=== PATIENT | female | born 1940 | race Hispanic/Latino ===

== ENCOUNTER 2016-10-12 12:25 | Emergency (ER) | payer MEDICARE ==
[2016-10-12 12:35] VITALS: BMI 29.2
[2016-10-12 12:40] VITALS: TEMP 98.2
--- NOTE | 2016-10-12 14:27 | ED PDOC ---
Arrival/HPI - General Chief Complaint: Back Pain Time Seen by Provider: 10/12/16 13:51 - History of Present Illness Narrative History of Present Illness (Text): 10/12/16 14:24 Patient presents complaining of back pain. States the location is in the lower region, feels like muscle spasms. Worst with movement and palpation. Pt states this feels identical to previous back pain quality that have happened in the past. Denies fevers/chills, denies IVDA, denies any lower extremity weakness/ numbness/paresthesias. Pt denies saddle anesthesia. Denies any urinary freq or retention. Denies bowel dysfunction/irregularity/incontinence/constipation. Past Medical History - Provider Review Nursing Documentation Reviewed: Yes - Infectious Disease Hx of Infectious Diseases: None - Cardiac Hx Hypertension: Yes Hx Pacemaker: No - Neurological Hx Paralysis: No - Endocrine/Metabolic Hx Diabetes Mellitus Type 2: Yes Hx Hypothyroidism: Yes - Hematological/Oncological Hx Blood Transfusions: No - Musculoskeletal/Rheumatological Hx Musculoskeletal Disorders: Yes (HIPS) Hx Arthritis: Yes - Psychiatric Hx Emotional Abuse: No Hx Physical Abuse: No Hx Substance Use: No - Surgical History Other/Comment: heart stents - Anesthesia Hx Anesthesia: Yes Hx Anesthesia Reactions: No Hx Malignant Hyperthermia: No - Suicidal Assessment Feels Threatened In Home Enviroment: No Family/Social History Family/Social History: Unknown Family HX Smoking Status: Former Smoker Hx Alcohol Use: Yes (RED WINE) Frequency of alcohol use: Socially Hx Substance Use: No Allergies/Home Meds Allergies/Adverse Reactions: Allergies lisinopril Allergy (Verified 12/22/15 11:41) SWELLING Home Medications: Home Meds Medication Instructions Recorded Confirmed Glipizide [Glucotrol] 5 mg PO BID 08/24/14 10/12/16 Insulin Detemir [Levemir Flextouch] 40 unit SC HS 08/24/14 10/12/16 Metformin HCl [Metformin] 1,000 mg PO BID 08/24/14 10/12/16 Metoprolol Succinate [Toprol XL] 50 mg PO BID 08/24/14 10/12/16 Isosorbide Mononitrate [Imdur] 60 mg PO QAM 12/20/14 10/12/16 Enalapril/Hydrochlorothiazide 1 tab PO DAILY 12/22/15 10/12/16 [Enalapril Maleate and Hydrochlorothiazide 10 ] Levothyroxine [Levoxyl] 0.125 mg PO DAILY 12/22/15 10/12/16 amLODIPine [Norvasc] 5 mg PO DAILY 12/22/15 10/12/16 Gabapentin [Neurontin] 300 mg PO BID 12/24/15 10/12/16 traMADol [Ultram] 1 tab PO TID PRN 10/12/16 10/12/16 Physical Exam - Physical Exam Narrative Physical Exam (Text): 10/12/16 14:27 - Review of Systems Constitutional: Normal. absent: Fatigue, Weight Change, Fevers Eyes: Normal ENT: denies sore throat, denies tristhmus Respiratory: Normal. absent: SOB, Cough, Sputum Cardiovascular: absent: Chest Pain, Palpitations, Syncope Gastrointestinal: Normal. absent: Abdominal Pain, Diarrhea, Nausea, Vomiting Genitourinary: Normal. absent: Dysuria, Frequency, Hematuria Musculoskeletal: back pain. absent: Arthralgias, Neck Pain Skin: no rashes, no erythema Neurological: absent: Focal Weakness Endocrine: Normal Hemo/Lymphatic: Normal Psychiatric: No suicidal or homicidal ideations Physical exam Patient appears age appropriate in no distress, speaking full sentences without difficulty Increased hypertonicity appreciated in the R. lower lumbar region, pain quality reproduced with palpation. No midline tenderness. FROM of pt's cervical, thoracic, lumbar, and sacral regions appreciated, active/passive without any difficulty. Lower extremities with full neurological and vascular intact. Steady gait. - Systems Exam Head: Present: Atraumatic, Normocephalic Pupils: Present: PERRL Extroacular Muscles: Present: EOMI Conjunctiva: Present: Normal Mouth: Present: Moist Mucous Membranes Neck: Present: Normal Range of Motion. No: MIDLINE TENDERNESS, Paraspinal Tenderness Respiratory/Chest: Present: Clear to Auscultation, Good Air Exchange. No: Respiratory Distress, Accessory Muscle Use, Tachypneic Cardiovascular: Present: Regular Rate and Rhythm, Normal S1, S2, Peripheal Pulses Present. No: Murmurs Abdomen: Present: Normal Bowel Sounds. No: Tenderness, Distention, Peritoneal Signs, Rebound, Guarding Back: No: Midline Tenderness Upper Extremity: Present: Normal Inspection. No: Cyanosis, Edema Lower Extremity: Present: Normal Inspection. No: Edema Neurological: Present: GCS=15, Speech Normal, cranial nerves II through XII fully intact with no cerebellar abnormality, neurosensory fully intact. No focal neurological deficits. Skin: Present: Warm, Dry, Normal Color. No: Rashes Lymphatic: Present: OX3, NI, NC Psychiatric: Present: Alert, Oriented x 3, Normal Insight, Normal Concentration Vital Signs Reviewed: Yes Vital Signs Temp Pulse Resp BP Pulse Ox 10/12/16 12:39 98.2 F 72 18 172/70 H 99 Temperature: Afebrile Blood Pressure: Hypertensive (asymptomatic) Pulse: Regular Respiratory Rate: Normal Appearance: Positive for: Well-Appearing Pain Distress: None Mental Status: Positive for: Alert and Oriented X 3 Medical Decision Making ED Course and Treatment: 10/12/16 14:28 pt received toradol, reported symptomatic relief. Pt states is not driving home. Based on hx and physical, no suspicion for renal involvement, cord impingement or epidural/spinal abscess stable for dc home. pt ambulates with a cane. pt has tramadol and mm relaxant rx from pain management pt's previous BUN/Cre from 02/04 which were normal pt will be given naproxen and instructed to f/u with PMD outpatient Pt verbalized understands to return to the ER right away for new or worsening symptoms or for inability to f/u with PMD or specialist as instructed. Patient verbalized full agreement with and understanding of discharge instructions. States that he agrees with the plan and disposition. Verbalized and repeated discharge instructions and plan. I have given the patient opportunity to ask any additional questions. - Medication Orders Current Medication Orders: Discontinued Medications Ketorolac Tromethamine (Toradol) 30 mg IM STAT STA Stop: 10/12/16 13:53 Last Admin: 10/12/16 14:06 Dose: 30 mg Disposition/Present on Arrival - Present on Arrival Any Indicators Present on Arrival: No History of DVT/PE: No History of Uncontrolled Diabetes: No Urinary Catheter: No History of Decub. Ulcer: No History Surgical Site Infection Following: None - Disposition Have Diagnosis and Disposition been Completed?: Yes Diagnosis: Back pain Disposition: HOME/ ROUTINE Disposition Time: 14:34 Patient Plan: Discharge Patient Problems: Current Active Problems Problem Status Onset Back pain Acute Condition: GOOD Discharge Instructions (ExitCare): Back Pain (ED) Additional Instructions: PLEASE RETURN TO THE EMERGENCY DEPARTMENT FOR NEW OR WORSENING SYMPTOMS. RETURN RIGHT AWAY IF YOU CANNOT FOLLOW UP WITH YOUR PRIMARY CARE DOCTOR, CLINIC, OR SPECIALIST IN 1-2 DAYS. Prescriptions: Naproxen [Naprosyn Tab] 250 mg PO Q8 #6 tab Referrals: Kameron Mcintyre MD [Primary Care Provider] - Follow up with primary
[2016-10-12 15:21] VITALS: BP 172/66; PULSE 75; RESP 16; O2SAT 98
== END 2016-10-12 15:03 | disposition home or self-care (01) ==
LOC: ED 12:25
DX: M54.9 Dorsalgia, unspecified (principal)
CPT/HCPCS: 96372; 99282; J1885

== ENCOUNTER 2017-02-18 11:09 | Day surgery (SDC) | payer MEDICARE ==
[2017-02-15 12:47] VITALS: BMI 29.9
[2017-02-18 11:50] LABS: BASO # 0.01 K/mm3 (0.0-2.0); BASO % 0.2 % (0.0-3.0); EOS # 0.1 (0.0-0.7); EOS % 1.2 % (1.5-5.0); GRAN # 3.79 (1.4-6.5); GRAN % 58.3 % (50.0-68.0); HEMATOCRIT 29.6 % (36.0-48.0); LYMPH # 2.1 (1.2-3.4); LYMPH % 32.4 % (22.0-35.0); MEAN CELL VOLUME 89.4 fl (80.0-105.0); MEAN CORPUSCULAR HEMOGLOBIN 28.1 pg (25.0-35.0); MEAN CORPUSCULAR HGB CONC 31.4 g/dl (31.0-37.0); MEAN PLATELET VOLUME 9.6 fl (7.0-11.0); MONO # 0.5 (0.1-0.6); MONO % 7.9 % (1.0-6.0); RED CELL DISTRIBUTION WIDTH 15.4 % (11.5-14.5); WHITE BLOOD COUNT 6.5 10^3/ul (4.5-11.0)
[2017-02-18 12:00] LABS: INR 1.01 (0.93-1.08); PARTIAL THROMBOPLASTIN TIME 33.2 Seconds (25.1-36.5)
[2017-02-18 12:02] LABS: CALCIUM 9.6 mg/dL (8.4-10.5); POTASSIUM 4.9 mmol/L (3.6-5.0)
[2017-02-18] MEDS ORDERED: Lidocaine 2% Inj (20ml) ONE (12:31)
[2017-02-18] MEDS ORDERED: Midazolam 2 MG/2 ML VIAL ONE ×3 (12:33→14:39)
[2017-02-18] MEDS ORDERED: Nitroglycerin 50mg in D5W 50 MG/250 ML BOTTLE IV ONE (12:34)
[2017-02-18] MEDS ORDERED: Iodixanol 320 MG/ML 100 ML BOTTLE IV ONE ×3 (12:34→15:25)
[2017-02-18] MEDS ORDERED: Iodixanol 320 MG/ML 200 ML BOTTLE IV ONE (12:34)
[2017-02-18] MEDS ORDERED: Oxycodone/Acetaminophen 5/325 mg Tab PO PRN (15:57)
[2017-02-18] MEDS: Sodium Chloride 0.45% 1,000 ML IV SCH (19:15)
[2017-02-18] MEDS: Metoprolol Succinate 50 mg XL Tab PO SCH (19:21)
[2017-02-18] MEDS: Aspirin 325 mg EC Tablets PO SCH (19:22)
--- NOTE | 2017-02-18 19:54 | VASCULAR ---
PROCEDURE: 1. Abdominal aortogram and bilateral lower extremity runoff with right selective views. 2. Right SFA silver Hawk atherectomy and drug-eluting balloon angioplasty with filter wire protection 3. Ox some wall right anterior tibial artery angioplasty HISTORY: Severe peripheral vascular disease. Previous bilateral iliac stents. Ischemic ulceration with pain right foot. PHYSICIAN(S): Mansoor Dailey M.D. TECHNIQUE: The relative risks and indications of the procedure were explained to the patient and consent obtained. The patient was hydrated prior to the procedure and the appropriate labs drawn. The patient was placed supine on the arteriogram table and the left groin prepped and draped in the usual sterile fashion. Conscious sedation and monitoring were provided throughout the procedure by a nurse. Via a left common femoral artery approach, a 5 Samoan sheath was placed in the left groin. Through the sheath and over a guidewire, a 5 Samoan flush catheter was placed in the abdominal aorta at the level of the renal arteries and a PA DSA abdominal aortogram performed. The catheter was pulled down to the aortic bifurcation and bilateral oblique DSA pelvic arteriograms performed. Overlapping bilateral lower extremity DSA arteriograms were obtained from the inguinal ligaments to the ankles. A 0.035 angled Glidewire was advanced over the bifurcation and placed in the mid right SFA. A 7 Samoan 45 cm destination sheath was placed in the distal right external iliac artery. The multifocal disease in the right SFA and proximal right anterior tibial artery was crossed with a 0.035 angled glidewire and 5 Samoan catheter. Exchange was made for 0.014 support wire. The proximal right anterior tibial artery was dilated with a 3.0 x 8 cm angioplasty balloon. An excellent angiographic result was obtained. No stent was required. 6 mm spider filter was deployed in the distal right popliteal artery. Silver Hawk atherectomy of the entire right SFA was performed with an LS catheter. Three passes were performed. Next the right SFA was dilated with 5 mm drug-eluting balloons distally and 6 mm drug-eluting balloons proximally. 7 mm angioplasty balloon was used in the proximal right SFA. Completion angiograms were performed. Small residual stenoses were seen but no stent was placed. The sheath was removed and hemostasis obtained. The patient tolerated the procedure well . FINDINGS: There appears to be a severe stenosis in the proximal left renal artery. The right renal artery is patent. There is calcified mildly irregular disease of the infrarenal abdominal aorta. The aortic bifurcation is patent. Previously placed bilateral iliac stents are patent without significant re- stenosis. The right internal iliac artery is patent. The left internal iliac artery is occluded.. The nephrograms are symmetric in appearance. The infrarenal abdominal aorta is widely patent without a radiographically significant stenosis. The aortic bifurcation is widely patent. The common and external iliac arteries are normal in appearance without a significant stenosis. The internal iliac arteries are patent bilaterally. Right lower extremity: Examination of the right groin is somewhat limited by the patient's total hip replacement. The right common femoral artery is patent. The right profunda femoral artery is hypertrophied.. There is diffuse calcified disease of the right SFA with multiple mild, moderate, and severe stenoses. The right popliteal artery is patent and continuous with moderate stenoses above the patella. The right popliteal artery below the knee is patent. There is 2 vessel tibial runoff on the right via anterior tibial and peroneal arteries. Right posterior tibial artery is occluded. There is severe right pedal occlusive disease. The dorsalis pedis artery is patent. The plantar arch is occluded. Collaterals are seen at the foot. Left lower extremity: Left common femoral artery is patent. The left profunda femoral artery is hypertrophied. The left superficial femoral artery is diffusely diseased and atretic in appearance. Critical stenosis is noted in the distal left SFA. The left popliteal artery is patent continuous with smooth undulating [id number] disease. There is 2 vessel tibial runoff on the left via the anterior tibial and peroneal arteries. The left posterior tibial artery is occluded.. IMPRESSION: 1.Successful long segment right SFA silver Hawk atherectomy and drug-eluting balloon angioplasty. 2. Successful proximal right anterior tibial artery angioplasty. 3. Patent bilateral iliac stents. 4. Severe left proximal renal artery stenosis. The right renal artery is patent.
[2017-02-19 06:21] LABS: MEAN CELL VOLUME 87.8 fl (80.0-105.0); MEAN CORPUSCULAR HEMOGLOBIN 28.2 pg (25.0-35.0); MEAN CORPUSCULAR HGB CONC 32.1 g/dl (31.0-37.0); MEAN PLATELET VOLUME 9.6 fl (7.0-11.0); RED CELL DISTRIBUTION WIDTH 15.4 % (11.5-14.5)
[2017-02-19 06:39] LABS: CALCIUM 9.1 mg/dL (8.4-10.5)
[2017-02-19 06:42] VITALS: O2SAT 92
[2017-02-19] MEDS: Sodium Chloride 0.45% 1,000 ML IV SCH (07:39)
[2017-02-19 09:12] VITALS: RESP 18
[2017-02-19] MEDS: Metoprolol Succinate 50 mg XL Tab PO SCH (09:56)
[2017-02-19] MEDS: Aspirin 325 mg EC Tablets PO SCH (09:56)
[2017-02-19] MEDS ORDERED: Levothyroxine 125 MCG TAB PO SCH (10:00)
[2017-02-19 11:50] VITALS: BP 160/70; PULSE 85; TEMP 98.6
[2017-02-19] MEDS ORDERED: Insulin Reg-LOW-Coverage SC SCH (12:00)
== END 2017-02-19 13:08 | disposition home or self-care (01) ==
LOC: SDSVAS 11:09 → 2RSO 19:00 → SDSVAS 02-19 13:08
PROVIDERS: ATTEND Radiology Vascular & Interventional Radiology
DX: I70.235 Atherosclerosis of native arteries of right leg with ulceration of other part of foot (principal); L97.519 Non-pressure chronic ulcer of other part of right foot with unspecified severity; I70.1 Atherosclerosis of renal artery
CPT/HCPCS: 36415 ×2; 37225; 37228; 75625; 75716; 80048 ×2; 82948 ×2; 85025; 85027; 85610; 85730; 99152; 99153; C1725 ×6; C1760 ×2; C1769 ×6; C1885; C1887 ×3; C1894; J1644 ×2; J1940; J2250; J2405; J3010; J7030 ×3; Q9967

== ENCOUNTER 2017-08-28 21:28 | Observation (INO) | payer MEDICARE ==
[2017-08-28 21:38] VITALS: BMI 44.9
--- NOTE | 2017-08-28 22:00 | ED PDOC ---
Arrival/HPI - General Historian: Patient <OroscoDelta - Last Filed: 08/29/17 00:03> <Cy Mclaughlin - Last Filed: 08/29/17 20:01> - General Chief Complaint: Dizziness/Lightheaded Time Seen by Provider: 08/28/17 21:33 - History of Present Illness Narrative History of Present Illness (Text): Patient is a 76 year old female with a past medical history of hypertension, hyperlipidemia, diabetes, and CAD with stents who presents to the ED for evaluation and treatment of dizziness with associated chest discomfort which began approximately 7 hours with no specific provoking event. States she felt that the room was spinning. Denies trauma to head and loss of consciousness. Dizziness persisted despite laying down. Dizziness was associated with localized retrosternal chest discomfort. Chest discomfort improved after taking home nitro. Also admits to baseline SOB on exertion. States both dizziness and chest discomfort have resolved at this time. Further denies fever, chills, abdominal pain, nausea, vomiting, diarrhea, constipation, and urinary symptoms. PMD: Dr. 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 Hernandez (Delta Orosco) Past Medical History - Provider Review Nursing Documentation Reviewed: Yes - Travel History Have you recently traveled outside [place] w/in the past 3 mons?: No - Infectious Disease Hx of Infectious Diseases: None - Cardiac Hx Pacemaker: No - Pulmonary Hx Respiratory Disorders: No - Neurological Hx Paralysis: No - HEENT Hx HEENT Disorder: Yes (macular degeneration) - Renal Hx Renal Disorder: No - Endocrine/Metabolic Hx Diabetes Mellitus Type 2: Yes Hx Hypothyroidism: Yes - Hematological/Oncological Hx Blood Transfusions: Yes Hx Blood Transfusion Reaction: No - Integumentary Hx Dermatological Disorder: No - Musculoskeletal/Rheumatological Hx Musculoskeletal Disorders: Yes - Gastrointestinal Hx Gastrointestinal Disorders: Yes (occ diarrhea) - Genitourinary/Gynecological Hx Genitourinary Disorders: No - Psychiatric Hx Emotional Abuse: No Hx Physical Abuse: No Hx Substance Use: No - Surgical History Hx Cardiac Catheterization: Yes (2015/stent) - Anesthesia Hx Anesthesia: Yes Hx Anesthesia Reactions: No Hx Malignant Hyperthermia: No - Suicidal Assessment Feels Threatened In Home Enviroment: No <Delta Orosco - Last Filed: 08/29/17 00:03> Family/Social History - Physician Review Nursing Documentation Reviewed: Yes Family/Social History: Unknown Family HX Smoking Status: Never Smoked Hx Alcohol Use: Yes (RED WINE THREE DAYS A WEEK) Hx Substance Use: No <Delta Orosco - Last Filed: 08/29/17 00:03> Allergies/Home Meds <Delta Orosco - Last Filed: 08/29/17 00:03> <Cy Mclaughlin - Last Filed: 08/29/17 20:01> Allergies/Adverse Reactions: Allergies lisinopril Allergy (Severe, Verified 08/28/17 21:38) ANAPHYLAXIS Home Medications: Home Meds Medication Instructions Recorded Confirmed Glipizide [Glucotrol] 5 mg PO BID 08/24/14 08/28/17 Insulin Detemir [Levemir Flextouch] 40 unit SC HS 08/24/14 08/28/17 Metformin HCl 500 mg PO BID 08/24/14 08/28/17 Metoprolol Succinate [Toprol XL] 50 mg PO BID 08/24/14 08/28/17 Isosorbide Mononitrate [Imdur] 60 mg PO QAM 12/20/14 08/28/17 Levothyroxine [Synthroid] 0.125 mg PO DAILY 12/22/15 08/28/17 amLODIPine [Norvasc] 5 mg PO DAILY 12/22/15 08/28/17 Gabapentin [Neurontin] 300 mg PO HS 12/24/15 08/29/17 Nitroglycerin [Nitrostat] 0.4 mg SL DAILY PRN 11/26/16 08/28/17 Acetaminophen [Tylenol 325mg tab] 650 mg PO Q4 PRN 12/24/16 08/28/17 hydroCHLOROthiazide [Hydrodiuril] 25 mg PO DAILY 12/24/16 08/28/17 Ascorbic Acid [Vitamin C with Radha 500 mg PO BID 01/05/17 08/28/17 Hips] Aspirin [Ecotrin] 325 mg PO BID 01/05/17 08/28/17 Ferrous Sulfate 325 mg pe PO BID 01/05/17 08/28/17 Simvastatin 40 mg PO DAILY 08/29/17 08/29/17 Review of Systems - Review of Systems Constitutional: Normal Eyes: Normal ENT: Normal Respiratory: SOB Cardiovascular: Chest Pain Gastrointestinal: Normal Genitourinary Female: Normal Musculoskeletal: Normal Skin: Normal Neurological: Normal Endocrine: Normal Hemo/Lymphatic: Normal Psychiatric: Normal <Delta Orosco - Last Filed: 08/29/17 00:03> - Physician Review All systems were reviewed & negative as marked: Yes <Cy Mclaughlin - Last Filed: 08/29/17 20:01> Physical Exam Vital Signs Reviewed: Yes Temperature: Afebrile Blood Pressure: Hypertensive Pulse: Tachycardic Respiratory Rate: Normal Appearance: Positive for: Well-Appearing, Non-Toxic, Comfortable Pain Distress: None Mental Status: Positive for: Alert and Oriented X 3 - Systems Exam Head: Present: Atraumatic Pupils: Present: PERRL Extroacular Muscles: Present: EOMI Conjunctiva: Present: Normal Mouth: Present: Moist Mucous Membranes Nose (External): Present: Atraumatic Neck: Present: Normal Range of Motion Respiratory/Chest: Present: Clear to Auscultation, Good Air Exchange. No: Respiratory Distress, Accessory Muscle Use Cardiovascular: Present: Normal S1, S2, Tachycardic Abdomen: No: Tenderness, Distention, Peritoneal Signs, Rebound, Guarding Upper Extremity: Present: Normal Inspection Lower Extremity: Present: Edema (trace edema biateral lower extremities ) Neurological: Present: CN II-XII Intact, Speech Normal, Motor Func Grossly Intact, Normal Sensory Function Skin: Present: Warm, Dry, Normal Color <Delta Orosco - Last Filed: 08/29/17 00:03> Vital Signs Temp Pulse Pulse Pulse Resp BP Pulse Ox 08/29/17 00:31 97.8 F 110 H 100 H 100 H 20 179/80 H 08/29/17 00:24 168/82 H 08/28/17 23:28 98.1 F 88 18 168/82 H 99 08/28/17 21:44 98.3 F 108 H 171 H 171/84 H 100 Medical Decision Making - Lab Interpretations I have reviewed the lab results: Yes - EKG Interpretation Interpreted by ED Physician: Yes Type: 12 lead EKG <Delta Orosco - Last Filed: 08/29/17 00:03> <Cy Mclaughlin - Last Filed: 08/29/17 20:01> ED Course and Treatment: Assessment and Plan: Patient is a 76 year old female with a past medical history of hypertension, hyperlipidemia, diabetes, and CAD with stents who presents to the ED for evaluation and treatment of dizziness with associated chest discomfort. Dizziness Chest discomfort Hx of hypertension Hx of hyperlipidemia Hx of diabetes Hx of CAD with stents 08/28/17 22:02 - EKG- sinus tachycardia, new ST depressions in V3-V6 - CBC, CMP, PT- PTT, Troponin, BNP - head CT and CXR 08/28/17 22:45 - Chest X-ray reviewed- no acute active disease 08/29/17 00:04 - BNP elevated - admit under Dr. Mcintyre's service (Delta Orosco) 08/28/17 22:40 Ani Renteria is a 76 year old female who presents to the emergency department for a complaint of chest discomfort and dizziness. In agreement with resident note which contains more details about the patient. Patient was seen and evaluated with resident. Came up with plan and treatment together. (Cy Mclaughlin) - Lab Interpretations Lab Results: 08/28/17 23:14 08/28/17 23:14 Lab Results 08/28/17 23:14: Sodium 139, Potassium 4.3, Chloride 108 H, Carbon Dioxide 20 L, Anion Gap 16, BUN 29 H, Creatinine 1.1, Est GFR ( Amer) 58, Est GFR (Non- Af Amer) 48, Random Glucose 206 H, Calcium 9.1, Magnesium 2.3 H, Total Bilirubin 0.2, AST 20, ALT 17, Alkaline Phosphatase 125, Lactate Dehydrogenase 457, Total Creatine Kinase 108, Troponin I < 0.01, NT-Pro-B Natriuret Pep 821 H , Total Protein 6.8, Albumin 3.6, Globulin 3.2, Albumin/Globulin Ratio 1.1 08/28/17 23:14: PT 11.3, INR 0.99, APTT 28.4 08/28/17 23:14: WBC 6.8, RBC 3.42 L, Hgb 8.9 L, Hct 27.7 L, MCV 81.0 D, MCH 26.0, MCHC 32.1, RDW 15.1 H, Plt Count 374, MPV 10.1, Gran % 74.0 H, Lymph % ( Auto) 21.6 L, [place] % (Auto) 4.0, Eos % (Auto) 0.3 L, Baso % (Auto) 0.1, Gran # 5.02, Lymph # (Auto) 1.5, [place] # (Auto) 0.3, Eos # (Auto) 0.0, Baso # (Auto) 0.01 08/28/17 23:05: POC Glucose (mg/dL) 208 H - RAD Interpretation Radiology Orders: 08/28/17 21:53 HEAD W/O CONTRAST [CT] Stat CHEST ONE VIEW [RAD] Stat - EKG Interpretation EKG Interpretation (Text): 08/28/17 22:06 EKG- sinus tachycardia, HR 113bpm, QTc 493, new ST depressions in V3-V6 compared to previous EKG (Delta Orosco) - Medication Orders Current Medication Orders: Acetaminophen (Tylenol 325mg Tab) 650 mg PO Q4 PRN PRN Reason: for pain level 3-6 Amlodipine Besylate (Norvasc) 5 mg PO DAILY [facility] Aspirin (Aspirin Chewable) 81 mg PO DAILY [facility] Last Admin: 08/29/17 09:01 Dose: 81 mg Aspirin (Ecotrin) 325 mg PO BID [facility] Last Admin: 08/29/17 17:34 Dose: 325 mg Atorvastatin Calcium (Lipitor) 20 mg PO DIN [facility] Last Admin: 08/29/17 17:34 Dose: 20 mg Gabapentin (Neurontin) 300 mg PO HS [facility] PRN Reason: Protocol Glipizide (Glucotrol) 5 mg PO BID [facility] Last Admin: 08/29/17 17:35 Dose: 5 mg Hydrochlorothiazide (Hydrodiuril) 25 mg PO DAILY [facility] Last Admin: 08/29/17 09:00 Dose: 25 mg Insulin Detemir (Levemir) 40 unit SC HS [facility] Insulin Detemir (Levemir) 40 unit SC HS [facility] Isosorbide Mononitrate (Imdur) 60 mg PO DAILY [facility] Last Admin: 08/29/17 09:00 Dose: 60 mg Isosorbide Mononitrate (Imdur) 60 mg PO QAM [facility] Levothyroxine Sodium (Synthroid) 125 mcg PO DAILY [facility] Metformin HCl (Glucophage) 500 mg PO BID [facility] Last Admin: 08/29/17 17:34 Dose: 500 mg Metformin HCl (Glucophage) 500 mg PO BID [facility] Last Admin: 08/29/17 17:35 Dose: Metoprolol Succinate (Toprol Xl) 50 mg PO BID [facility] Last Admin: 08/29/17 17:35 Dose: Metoprolol Tartrate (Lopressor) 50 mg PO BID [facility] Last Admin: 08/29/17 17:34 Dose: 50 mg MAR Pulse and Blood Pressure Document 08/29/17 17:34 RT (Rec: 08/29/17 17:34 RT [place] [id number]) Pulse Pulse Rate (60-90) 76 Blood Pressure Blood Pressure (100/60-150/90) 136/67 Discontinued Medications Amlodipine Besylate (Norvasc) 5 mg PO DAILY [facility] Last Admin: 08/29/17 09:01 Dose: 5 mg MAR Pulse and Blood Pressure Document 08/29/17 09:01 RT (Rec: 08/29/17 09:01 RT [place] [id number]) Pulse Pulse Rate (60-90) 98 Blood Pressure Blood Pressure (100/60-150/90) 174/84 Amlodipine Besylate (Norvasc) 5 mg PO STAT STA Stop: 08/29/17 11:59 Last Admin: 08/29/17 12:05 Dose: 5 mg MAR Pulse and Blood Pressure Document 08/29/17 12:05 RT (Rec: 08/29/17 12:05 RT [place] [id number]) Pulse Pulse Rate (60-90) 71 Blood Pressure Blood Pressure (100/60-150/90) 173/72 Furosemide (Lasix) 40 mg IVP STAT STA Stop: 08/29/17 00:00 Last Admin: 08/29/17 00:24 Dose: 40 mg MAR Blood Pressure Document 08/29/17 00:24 SASHA (Rec: 08/29/17 00:24 SASHA [id number]) Blood Pressure Blood Pressure (100/60-150/90) 168/82 IVP Administration Document 08/29/17 00:24 SASHA (Rec: 08/29/17 00:24 SASHA [id number]) Charges for Administration # of IVP Administrations 1 Metformin HCl (Glucophage) 500 mg PO BID [facility] Metoprolol Succinate (Toprol Xl) 50 mg PO BID [facility] <Delta Orosco - Last Filed: 08/29/17 00:03> - Scribe Statement The provider has reviewed the documentation as recorded by the Scribe <Cy Mclaughlin - Last Filed: 08/29/17 20:01> - Scribe Statement Sully Arreola Provider Scribe Attestation: All medical record entries made by the Scribe were at my direction and personally dictated by me. I have reviewed the chart and agree that the record accurately reflects my personal performance of the history, physical exam, medical decision making, and the department course for this patient. I have also personally directed, reviewed, and agree with the discharge instructions and disposition.' (Cy Mclaughlin) Disposition/Present on Arrival - Present on Arrival Any Indicators Present on Arrival: No History of DVT/PE: No History of Uncontrolled Diabetes: No Urinary Catheter: No History of Decub. Ulcer: No History Surgical Site Infection Following: None - Disposition Have Diagnosis and Disposition been Completed?: Yes Disposition Time: 00:03 <Delta Orosco - Last Filed: 08/29/17 00:03> <Cy Mclaughlin - Last Filed: 08/29/17 20:01> - Disposition Diagnosis: Dizziness, Chest pain Disposition: HOSPITALIZED Patient Problems: Current Active Problems Problem Status Onset Chest pain Acute Dizziness Acute Condition: FAIR
--- NOTE | 2017-08-28 23:35 | CT ---
EXAM: CT Head Without Intravenous Contrast CLINICAL HISTORY: 76 years old, female; Signs and symptoms; Dizziness TECHNIQUE: Axial computed tomography images of the head/brain without intravenous contrast. All CT scans at this facility use one or more dose reduction techniques, viz.: automated exposure control; ma/kV adjustment per patient size (including targeted exams where dose is matched to indication; i.e. head); or iterative reconstruction technique. Coronal and sagittal reformatted images were created and reviewed. COMPARISON: No relevant prior studies available. FINDINGS: Brain: Moderate atrophy. No intracranial hemorrhage. No mass. Few scattered foci of decreased attenuation within periventricular/subcortical white matter. No definite edema. Ventricles: No hydrocephalus. Bones/joints: No acute fracture. Soft tissues: Unremarkable. Vasculature: Atherosclerotic disease of intracranial arteries. Sinuses: Scattered minimal mucosal thickening. Mastoid air cells: No mastoid effusion. Orbits: Unremarkable as visualized. IMPRESSION: 1. Nonspecific white matter changes. Acute infarction may be CT occult within first 24 hours. If a focal deficit persists, consider followup CT or MRI for further evaluation. 2. Incidental/non-acute findings are described above.
[2017-08-28 23:46] LABS: ALB/GLOB RATIO 1.1 (1.1-1.8); ALBUMIN 3.6 g/dL (3.0-4.8); ALT/SGPT 17 U/L (7-56); AST/SGOT 20 U/L (14-36); BLOOD UREA NITROGEN 29 mg/dL (7-21); CALCIUM 9.1 mg/dL (8.4-10.5); GFR AFRICAN-AMERICAN 58; GFR NON-AFRICAN AMERICAN 48
[2017-08-28 23:51] LABS: BASO # 0.01 K/mm3 (0.0-2.0); BASO % 0.1 % (0.0-3.0); EOS % 0.3 % (1.5-5.0); GRAN # 5.02 (1.4-6.5); HEMOGLOBIN 8.9 g/dL (12.0-16.0); LYMPH # 1.5 (1.2-3.4); LYMPH % 21.6 % (22.0-35.0); MEAN CORPUSCULAR HGB CONC 32.1 g/dl (31.0-37.0); MEAN PLATELET VOLUME 10.1 fl (7.0-11.0); MONO # 0.3 (0.1-0.6); RBC 3.42 10^6/uL (3.5-6.1); RED CELL DISTRIBUTION WIDTH 15.1 % (11.5-14.5); WHITE BLOOD COUNT 6.8 10^3/ul (4.5-11.0)
[2017-08-28 23:58] LABS: B-TYPE NATRIURETIC PEPTIDE 821 pg/mL (0-450); TROPONIN I < 0.01 ng/mL
[2017-08-29 00:01] LABS: INR 0.99 (0.93-1.08); PARTIAL THROMBOPLASTIN TIME 28.4 Seconds (25.1-36.5); PROTHROMBIN TIME 11.3 SECONDS (9.4-12.5)
--- NOTE | 2017-08-29 08:19 | RAD ---
PROCEDURE: CHEST RADIOGRAPH, 1 VIEW HISTORY: cp COMPARISON: 12/22/2015 FINDINGS: LUNGS: Clear. PLEURA: No pneumothorax or pleural fluid seen. CARDIOVASCULAR: Normal. OSSEOUS STRUCTURES: No significant abnormalities. VISUALIZED UPPER ABDOMEN: Normal. OTHER FINDINGS: None. IMPRESSION: No active disease.
--- NOTE | 2017-08-29 10:27 | CON ---
DATE: 08/29/2017 INDICATIONS: Chest pain, dizziness. HISTORY OF PRESENT ILLNESS: This is a 76-year-old woman, known to our practice, admitted with an episode of chest pain associated with dizziness and vertigo. She felt unsteady and vertiginous, it did not respond to lying down. It is associated with mid chest discomfort. She came to the emergency room. She was admitted to telemetry. This morning, she feels better. There is no chest pain currently. The dizziness has resolved. There is no shortness of breath, orthopnea, PND, syncope, edema, claudication, fever, chills, cough, sputum production, hemoptysis, abdominal pain, nausea, vomiting, diarrhea, constipation or melena. PAST MEDICAL HISTORY: Notable for coronary artery disease and remote coronary intervention. She has PAD, diabetes, hypertension, hyperlipidemia, osteoarthritis, hypothyroidism, peripheral neuropathy, cataracts. She has had anemia and GI bleeding in the past. There is no history of congestive heart failure, rheumatic fever, stroke, gout. MEDICATIONS AT THE TIME OF ADMISSION: Include aspirin, iron sulfate, glipizide, hydrochlorothiazide, Imdur, Levemir, metformin, Neurontin, amlodipine, Synthroid, metoprolol, Tylenol, vitamin C. ALLERGIES: SHE NOTES AN ALLERGY TO LISINOPRIL. SOCIAL HISTORY: She lives at home. She is ambulatory. She does not smoke cigarettes. She does not drink alcohol. FAMILY HISTORY: Noncontributory. REVIEW OF SYSTEMS: Ten-point review of systems is otherwise unremarkable except as noted above. PHYSICAL EXAMINATION GENERAL: She is a well-developed elderly woman, lying in bed on telemetry, in no acute distress. VITAL SIGNS: Notable for sinus rhythm at 82 beats per minute. She is afebrile. Blood pressure 142/67, respirations 18-20, O2 sat 95%-100% on room air. HEENT: Reveals no neck vein distention, thyromegaly, carotid bruit. Mucous membranes moist. Conjunctivae pink. NECK: Supple. LUNGS: Lung downing clear throughout. HEART: Revealed a regular rhythm, normal first and second heart sounds. No murmur, gallop, rub or click. ABDOMEN: Soft. Bowel sounds are present. No mass, organomegaly, tenderness, rebound, guarding, CVA tenderness. EXTREMITIES: Revealed no cyanosis, clubbing or edema. NEUROLOGIC: She is awake, alert and oriented. PSYCHIATRIC: Normal as to mood and affect. SKIN: Warm and dry. No rash or cellulitis. LABORATORY AND IMAGING: EKG demonstrated sinus tachycardia at 113 beats per minute. There were nonspecific ST-wave changes with slight ST-depression noted in V6 and lead I, new compared to a prior EKG. Chest x-ray showed no active disease. CT scan of the head showed nonspecific white matter changes, etc. White count normal, hemoglobin 8.9, hematocrit 27.7, platelet count 374,000. PT/INR, PTT unremarkable. Electrolytes are noted. Potassium 4.3, sodium 139, chloride 108, carbon dioxide 20, BUN 29. Blood sugar 208, repeat 187. Magnesium 2.3. LFTs unremarkable. CK 108, troponin less than 0.01, BNP 821. IMPRESSION: Ani Renteria is a 76-year-old woman with known coronary artery disease, hypertension, diabetes, peripheral neuropathy, etc., who is admitted with acute episode of dizziness associated with chest discomfort. There are mild EKG changes noted. PLAN: She is admitted to telemetry. I will check postural vital signs, EKG and troponin level this morning. I will order an echocardiogram. She is on hall monitor. Neurology consultation is advisable. I will continue her usual medications including aspirin, hydrochlorothiazide, isosorbide, metoprolol and amlodipine. She got a dose of Lasix. We will check stool for occult blood. She can be out of bed to chair. We will monitor I's and O's. I will review her old records. I will follow along with you. We will make additional recommendations based on her clinical course. Collins Modi MD JANIA
--- NOTE | 2017-08-29 10:54 | CARD ---
APPROVED REPORT EKG Measurement Heart [id number] <Conclusion> Sinus tachycardia Mild ST depressions V 3 -6 , and lead 1, new since ECG 12/22/15
[2017-08-29] MEDS ORDERED: SIMVASTATIN 40 MG PO SCH (13:45)
--- NOTE | 2017-08-29 16:02 | HP ---
HISTORY OF PRESENT ILLNESS: The patient is 76 years old, patient of Dr. Mcintyre. She states yesterday she started to have some retrosternal discomfort, started to feel dizzy, lightheaded. Denies any shortness of breath. No history of nausea or vomiting. No hemoptysis. No hematemesis. She felt she is unsteady and as if she is going to fall. It lasted for 3-4 hours. It was associated with midsternal chest pain. She got concerned that if she is having heart attack, so she came to emergency room for further evaluation. The patient states she feels a lot better. Still feels a little dizzy and anxious to go home. Currently, she has no complaint of chest pain. No shortness of breath. No nausea or vomiting. She still feels some dizziness and some epigastric discomfort. PAST MEDICAL HISTORY: Significant for, 1. Hypothyroidism. 2. Generalized osteoarthritis. 3. Diabetic neuropathy. 4. Hyperlipidemia. 5. Wbe-wtdksry-rxzhamxwp diabetes. 6. History of coronary artery disease, status post angioplasty. ALLERGIES: SHE IS ALLERGIC TO LISINOPRIL. MEDICATION AT HOME: She is on gabapentin 300 at bedtime. She is on simvastatin 40 mg daily, amlodipine 5 mg daily, metoprolol 50 mg twice a day, levothyroxine 1.25 daily, isosorbide 60 mg daily, Levemir 40 units at bedtime, glipizide 5 mg twice a day, ferrous sulfate, aspirin, ascorbic acid and acetaminophen. SOCIAL HISTORY: She denies smoking, drinking or alcohol use. REVIEW OF SYSTEMS: Significant for epigastric discomfort. No pain. PHYSICAL EXAMINATION: VITAL SIGNS: She is afebrile, pulse 71, respirations 18, blood pressure 173/72. LUNGS: Bilateral good airflow. No rhonchi or crackle. HEART: S1 and S2 audible. ABDOMEN: Soft. Nontender. No rebound. No guarding. NEUROLOGICAL: The patient is awake and alert, able to communicate. No focal deficit. No motor or sensory deficit. EXTREMITIES: Bilateral leg, no edema. LABORATORY EXAM: WBC 6.8, hemoglobin 8.9, hematocrit 27, platelet of 374. PT 11.3, INR 0.99. Chemistry: Sodium 139, potassium 4.3, chloride 108, CO2 of 20, BUN 29, creatinine 1.1, blood sugar of 187, magnesium 2.3. Two sets of cardiac enzymes are negative. BNP is 821. CT scan of the head is unremarkable. Nonspecific white matter changes on CT scan of the brain. X-ray chest is unremarkable. EKG shows sinus tachycardia. Mild ST depression. ASSESSMENT: 1. Chest pain seems to be noncardiac. 2. Dizziness, probably vertigo. 3. Insulin-dependent diabetes. 4. History of coronary artery disease, status post angioplasty. 5. Hypertension. 6. Peripheral neuropathy. PLAN: We will resume her medication. I will add Antivert. Try to monitor her blood pressure since it is running high. We will give her extra Norvasc. Monitor her blood pressure. Physical therapy evaluation has been requested. If the patient is stable, she will be discharged in the a.m. especially if 3 sets of cardiac enzymes are negative. Dario Awad MD
[2017-08-29 17:49] VITALS: RESP 20
[2017-08-29] MEDS ORDERED: Metoprolol Succinate 50 mg XL Tab PO SCH (18:00)
[2017-08-29] MEDS ORDERED: Metoprolol Succinate 100 mg XL Tab PO SCH (18:00)
[2017-08-29] MEDS ORDERED: Aspirin 325 mg EC Tablets PO SCH (18:00)
[2017-08-29] MEDS ORDERED: INSULIN DETEMIR 40 UNIT SC SCH (22:00)
[2017-08-29] MEDS ORDERED: Insulin Detemir 100 units/ml Vial (Levemir) SC SCH ×2 (22:00)
[2017-08-30 05:44] VITALS: PULSE 65; TEMP 97.7; O2SAT 95
--- NOTE | 2017-08-30 08:17 | CP.PCM.PN ---
Subjective - Date & Time of Evaluation Date of Evaluation: 08/30/17 Time of Evaluation: 07:00 - Subjective Subjective: Stable on 2R. No CP or dizziness now. She feels better. V/S noted. PE: Lungs: clear Cor.: S1S2 Abd.: soft Ext.: no edema Neuro.: alert I/O= 900/800 Trops neg X 2 ECG 08/29: RSR, WNL Objective - Vital Signs/Intake and Output Vital Signs (last 24 hours): Temp Pulse Resp BP Pulse Ox 97.7 F 65 20 125/48 L 95 08/30/17 05:43 08/30/17 05:43 08/30/17 05:43 08/30/17 05:43 08/30/17 05:43 Intake and Output: 08/30/17 08/30/17 06:59 18:59 Intake Total 900 Output Total 800 Balance 100 - Medications Medications: Current Medications Acetaminophen (Tylenol 325mg Tab) 650 mg PO Q4 PRN PRN Reason: for pain level 3-6 Amlodipine Besylate (Norvasc) 5 mg PO DAILY [facility] Aspirin (Aspirin Chewable) 81 mg PO DAILY [facility] Last Admin: 08/29/17 09:01 Dose: 81 mg Aspirin (Ecotrin) 325 mg PO BID [facility] Last Admin: 08/29/17 17:34 Dose: 325 mg Atorvastatin Calcium (Lipitor) 20 mg PO DIN [facility] Last Admin: 08/29/17 17:34 Dose: 20 mg Gabapentin (Neurontin) 300 mg PO HS [facility] PRN Reason: Protocol Last Admin: 08/29/17 22:00 Dose: 300 mg Glipizide (Glucotrol) 5 mg PO BID [facility] Last Admin: 08/29/17 17:35 Dose: 5 mg Hydrochlorothiazide (Hydrodiuril) 25 mg PO DAILY [facility] Last Admin: 08/29/17 09:00 Dose: 25 mg Insulin Detemir (Levemir) [address] [facility] Last Admin: 08/29/17 22:00 Dose: 40 units Isosorbide Mononitrate (Imdur) 60 mg PO DAILY [facility] Last Admin: 08/29/17 09:00 Dose: 60 mg Levothyroxine Sodium (Synthroid) 125 mcg PO DAILY [facility] Metformin HCl (Glucophage) 500 mg PO BID [facility] Last Admin: 08/29/17 17:35 Dose: Not Given Metoprolol Tartrate (Lopressor) 50 mg PO BID [facility] Last Admin: 08/29/17 17:34 Dose: 50 mg - Labs Labs: PT 11.3 SECONDS (9.4-12.5) 08/28/17 23:14 INR 0.99 (0.93-1.08) 08/28/17 23:14 APTT 28.4 Seconds (25.1-36.5) 08/28/17 23:14 Assessment and Plan - Assessment and Plan (Free Text) Assessment: Chest Pain Dizziness/Vertigo CAD/PCI Anemia H/O GIB PAD Diabetes HBP HLD OA Hypothyroidism PN Cataracts Check postural V/S Echo Out-pt nuclear stress test to be arranged OOB ad alysa.
[2017-08-30 09:25] VITALS: BP 137/62
--- NOTE | 2017-08-30 09:50 | CARD ---
APPROVED REPORT EKG Measurement Heart [id number] <Conclusion> Normal sinus rhythm Improved repolarization changes c/w ECG 08/28/17 Normal ECG
[2017-08-30] MEDS ORDERED: Levothyroxine 125 MCG TAB PO SCH (10:00)
--- NOTE | 2017-08-30 11:37 | PN ---
DATE: 08/30/2017 A 76-year-old white female admitted in the hospital with severe lightheadedness, dizziness and vertigo symptoms and nausea. The patient is stable today. Vital signs are better. She was seen by Neurology and Cardiology. The patient has no further symptoms today. She has no nystagmus. She is ambulating. She is tolerating diet well. She most likely will be discharged home today after some physical therapy and will follow up as an outpatient. OBJECTIVE: CHEST: Clear to auscultation and percussion. HEART. Regular sinus rhythm. There is no nystagmus noted. NEUROLOGIC: Gait is nonataxic. IMPRESSION: Most likely vertigo in a 76-year-old white female with history of coronary artery disease, insulin-dependent diabetes mellitus and peripheral vascular disease. Kameron Mcintyre MD
--- NOTE | 2017-08-31 09:11 | CARD ---
APPROVED REPORT EXAM: Two-dimensional and M-mode echocardiogram with Doppler and color Doppler. Other Information Quality : AverageRhythm : INDICATION CP,DIZZINESS,CAD 2D DIMENSIONS Left Atrium (2D)4.2 (1.6-4.0cm)IVSd1.2 (0.7-1.1cm) LVDd4.2 (3.9-5.9cm)PWd1.2 (0.7-1.1cm) LVDs2.8 (2.5-4.0cm)FS (%) 32.1 % LVEF (%)60.0 (>50%) M-Mode DIMENSIONS Aortic Root3.00 (2.2-3.7cm)Aortic Cusp Exc.1.50 (1.5-2.0cm) Aortic Valve AoV Peak Cerfbfdt541.0cm/s Mitral Valve MV E Riezhiib83.0cm/sMV A Mhwwwlho228.0cm/sE/A ratio0.7 TDI Lateral E' Peak V5.95cm/sMedial E' Peak V4.39cm/sE/Lateral E'13.3 E/Medial E'18.0 Pulmonary Valve PV Peak Oeavoagd56.8cm/sPV Peak Grad.3mmHg Tricuspid Valve TR Peak Atpglslq477zi/sRAP NVCPDTFR12cwNpZX Peak Gr.15mmHg BEFO78wcCp LEFT VENTRICLE The left ventricle is normal size. There is normal left ventricular wall thickness. The left ventricular function is normal. The left ventricular ejection fraction is within the normal range. There is normal LV segmental wall motion. RIGHT VENTRICLE The right ventricle is normal size. ATRIA The left atrium is mildly dilated. The right atrium size is normal. The interatrial septum is intact with no evidence for an atrial septal defect. AORTIC VALVE The aortic valve is normal in structure. MITRAL VALVE The mitral valve is normal in structure. Mitral regurgitation is mild. TRICUSPID VALVE The tricuspid valve is normal in structure. There is trace tricuspid regurgitation. PULMONIC VALVE The pulmonary valve is normal in structure. There is trace to mild pulmonic valvular regurgitation. GREAT VESSELS The aortic root is normal in size. PERICARDIAL EFFUSION There is no pericardial effusion. <Conclusion> The left ventricle is normal size. There is normal left ventricular wall thickness. The left ventricular function is normal. Mitral regurgitation is mild.
== END 2017-08-30 11:38 | disposition home or self-care (01) ==
LOC: ED 21:28 → ERH 08-29 00:06 → 2RSO 08-29 01:04
PROVIDERS: ADMIT Internal Medicine; ATTEND Internal Medicine
DX: R42 Dizziness and giddiness (principal); I25.10 Atherosclerotic heart disease of native coronary artery without angina pectoris; I10 Essential (primary) hypertension; E11.42 Type 2 diabetes mellitus with diabetic polyneuropathy; E11.36 Type 2 diabetes mellitus with diabetic cataract; E11.51 Type 2 diabetes mellitus with diabetic peripheral angiopathy without gangrene; D64.9 Anemia, unspecified; E03.9 Hypothyroidism, unspecified; E78.5 Hyperlipidemia, unspecified; Z79.4 Long term (current) use of insulin; M15.9 Polyosteoarthritis, unspecified
CPT/HCPCS: 36415; 70450; 71045; 80053; 82550; 82948; 83615; 83735; 83880; 84484; 85025; 85610; 85730; 93005; 93306; 96374; 99285; G0378; J1940

== ENCOUNTER 2017-09-29 06:21 | Day surgery (SDC) | payer MEDICARE ==
[2017-09-29] MEDS ORDERED: Lidocaine 2% Inj (20ml) ONE (06:49)
[2017-09-29] MEDS ORDERED: Iodixanol 320 MG/ML 200 ML BOTTLE IV ONE (06:50)
[2017-09-29] MEDS ORDERED: Iodixanol 320 MG/ML 100 ML BOTTLE IV ONE (06:50)
[2017-09-29] MEDS ORDERED: Iohexol 350mgl/ml 50 ML ONE (06:50)
[2017-09-29] MEDS ORDERED: Phenylephrine 10 mg/ml Inj ONE (06:51)
[2017-09-29] MEDS ORDERED: Nitroglycerin 50mg in D5W 50 MG/250 ML BOTTLE IV ONE (06:53)
[2017-09-29 07:14] LABS: BASO # 0.01 K/mm3 (0.0-2.0); BASO % 0.1 % (0.0-3.0); EOS # 0.1 (0.0-0.7); EOS % 1.3 % (1.5-5.0); GRAN # 4.69 (1.4-6.5); GRAN % 60.1 % (50.0-68.0); HEMOGLOBIN 7.8 g/dL (12.0-16.0); LYMPH # 2.3 (1.2-3.4); LYMPH % 29.5 % (22.0-35.0); MEAN CELL VOLUME 80.6 fl (80.0-105.0); MEAN CORPUSCULAR HEMOGLOBIN 25.2 pg (25.0-35.0); MEAN CORPUSCULAR HGB CONC 31.3 g/dl (31.0-37.0); MEAN PLATELET VOLUME 9.4 fl (7.0-11.0); MONO # 0.7 (0.1-0.6); RBC 3.09 10^6/uL (3.5-6.1); RED CELL DISTRIBUTION WIDTH 14.8 % (11.5-14.5); WHITE BLOOD COUNT 7.8 10^3/ul (4.5-11.0)
[2017-09-29 07:20] VITALS: BMI 28.7
[2017-09-29 07:21] LABS: CALCIUM 9.3 mg/dL (8.4-10.5)
[2017-09-29 07:22] LABS: INR 1.02 (0.93-1.08); PARTIAL THROMBOPLASTIN TIME 28.8 Seconds (25.1-36.5); PROTHROMBIN TIME 11.7 SECONDS (9.4-12.5)
[2017-09-29] MEDS ORDERED: Midazolam 2 MG/2 ML VIAL ONE (07:40)
[2017-09-29] MEDS ORDERED: Sodium Chloride 0.9% 1,000 ML IV SCH (08:30)
[2017-09-29] MEDS: Insulin Reg-LOW-Coverage SC SCH ×3 (11:30→21:55)
--- NOTE | 2017-09-29 13:59 | CARDCATH ---
PROCEDURE DATE: 09/29/2017 PROCEDURES: 1. Selective left and right coronary angiography. 2. Left ventriculography. 3. Percutaneous coronary intervention of left anterior descending with drug-eluting stents. 4. Right femoral arteriography. 5. Mynx deployment. HISTORY: This is a 76-year-old woman with known coronary artery disease, status post prior PCI of her left circumflex artery who has had worsening exertional chest pain and dyspnea. She is recently admitted for this. Given her progressive symptoms and known coronary artery disease, cardiac catheterization was advised. INDICATIONS: As above. FINDINGS: HEMODYNAMICS: The aortic pressure was 120/76 with a left ventricular pressure of 120/20. CORONARY ANATOMY: 1. The left mainstem shows some mild distal tapering. 2. The left anterior descending artery had diffuse 50% lesion in its early mid segment of the vessel. After the takeoff of a large diagonal branch shows a 90% stenosis present in the LAD. ISAMAR grade 2 flow was noted distally. 3. The diagonal and septal perforators had mild diffuse disease. 4. Left circumflex artery gave raise to 2 obtuse marginal branches. The previously placed stent in the first obtuse marginal branch had mild in-stent restenosis at 20% severity. The distal circumflex stent also had a 20% in-stent re-stenosis. 4. The right coronary artery was occluded after the take off of two acute marginal branches. The distal vessel filled the left and right collaterals. The RCA occlusion was known to be chronic. LEFT VENTRICULOGRAPHY: A hand injection was performed in the left ventricle revealing normal wall motion with an ejection fraction of 60%. There was no aortic valve gradient on catheter pullback. Mitral regurgitation was not assessed. CORONARY INTERVENTION: A 3.5 EBU-guide catheter was utilized. A 4000 units of intravenous heparin was administered. The ACT was 270 seconds during the procedure. The lesion in the LAD was successfully crossed with use of a cougar wire. Following this, initial placements were performed with 2.5 x 15 mm Sprinter balloon. The balloon was removed and a 2.75 x 22 mm Resolute [place] drug-eluting stent was advanced into the LAD at the most severe segment of the vessel. This was inflated to 12 atmospheres for 45 seconds. There is 0% residual stenosis following the intervention and ISAMAR grade 3 flow was restored. The area just proximal to the stent appeared to have some worsening stenosis possibly due to plaque shift from wire manipulation. This was then treated with placement of a 2.75 x 18 mm Resolute [place] drug-eluting stent. This was then inflated to 12 atmospheres for 45 seconds. This stent balloon was then advanced into the overlapped of the two stents and inflated to 14 atmospheres for 25 seconds. There is 0% residual stenosis following the intervention and ISAMAR grade 3 flow present throughout. RIGHT FEMORAL ARTERIOGRAPHY: The right femoral arteriogram revealed appropriate level of arterial puncture. There was evidence of extensive calcification with extensive plaque noted in the common femoral artery. The puncture site was then closed with deployment of Mynx device. CONCLUSIONS: 1. Severe LAD stenosis, successfully treated with drug-eluting stents as described above. 2. Patent left circumflex artery stents. 3. Chronically occluded RCA. 4. Preserved LV systolic function. RECOMMENDATIONS: Given the above findings, aspirin and Plavix therapy will be continued for at least one year. She does have chronic anemia and this will need to be monitored on dual antiplatelet therapy. Aggressive risk factor control was advised. Nilton Salazar MD cc: Kameron Mcintyre MD
--- NOTE | 2017-09-29 14:52 | RAD ---
Date of service: 09/29/2017 HISTORY: SOB COMPARISON: 08/28/2017 FINDINGS: LUNGS: No active pulmonary disease. PLEURA: No significant pleural effusion identified, no pneumothorax apparent. CARDIOVASCULAR: There is mild to moderate vascular congestion right greater than left. Mild cardiomegaly OSSEOUS STRUCTURES: No significant abnormalities. VISUALIZED UPPER ABDOMEN: Normal. OTHER FINDINGS: None. IMPRESSION: There is mild to moderate vascular congestion right greater than left. Mild cardiomegaly
--- NOTE | 2017-09-29 19:55 | CARD ---
APPROVED REPORT Date of service: 09/29/2017 EKG Measurement Heart [id number] [place] [id number] <Conclusion> Normal sinus rhythm Normal ECG
--- NOTE | 2017-09-29 20:14 | CARD ---
APPROVED REPORT Date of service: 09/29/2017 EKG Measurement Heart [id number] <Conclusion> Normal sinus rhythm Normal ECG
[2017-09-30 06:11] VITALS: O2SAT 97
[2017-09-30] MEDS: Insulin Reg-LOW-Coverage SC SCH (07:55)
--- NOTE | 2017-09-30 08:25 | CP.PCM.PN ---
Subjective - Date & Time of Evaluation Date of Evaluation: 09/30/17 Time of Evaluation: 07:00 - Subjective Subjective: S/P PCI LAD yesterday. See report. Developed SOB yesterday PM with vasc redist on CXR. Responded well to IV Lasix. She feels well this AM. No CP or SOB. There was groin oozing as well. This stopped around [place]. Today the groin looks OK. No oozing. V/S noted. RSR. PE: Lungs: clear Cor.: S1S2 Abd.: soft Ext.: no edema Neuro.: alert I/O 480/600 Precath labs noted. H/H 7.8/24.9. BSs noted. Will check AM labs pre-D/C home CXR noted. Mod. vasc. congestion. ECG noted: RSR, PRWP, No acute changes Objective - Vital Signs/Intake and Output Vital Signs (last 24 hours): Temp Pulse Resp BP Pulse Ox 98.7 F 81 19 142/60 97 09/30/17 06:00 09/30/17 06:00 09/30/17 06:00 09/30/17 06:00 09/30/17 06:00 Intake and Output: 09/30/17 09/30/17 06:59 18:59 Intake Total 480 Output Total 600 Balance -120 - Medications Medications: Current Medications Acetaminophen (Tylenol 325mg Tab) 650 mg PO Q4H PRN PRN Reason: Pain, Mild (1-3) Alprazolam (Xanax) 0.25 mg PO BID PRN PRN Reason: Anxiety Stop: 10/06/17 08:27 Aspirin (Ecotrin) 81 mg PO DAILY [facility] Clopidogrel Bisulfate (Plavix) 75 mg PO DAILY [facility] Docusate Sodium (Colace) 100 mg PO BID [facility] Last Admin: 09/29/17 18:22 Dose: 100 mg Sodium Chloride (Sodium Chloride 0.9%) 1,000 mls @ 100 mls/hr IV .Q10H [facility] Insulin Human Regular (Humulin R Low) 0 units SC ACHS [facility] PRN Reason: Protocol Last Admin: 09/30/17 07:55 Dose: 1 units Metoprolol Tartrate (Lopressor) 50 mg PO BID [facility] Last Admin: 09/29/17 18:22 Dose: 50 mg Zolpidem Tartrate (Ambien) 5 mg PO HS PRN PRN Reason: Insomnia - Labs Labs: 09/29/17 06:53 09/29/17 06:53 PT 11.7 SECONDS (9.4-12.5) 09/29/17 06:53 INR 1.02 (0.93-1.08) 09/29/17 06:53 APTT 28.8 Seconds (25.1-36.5) 09/29/17 06:53 Assessment and Plan - Assessment and Plan (Free Text) Assessment: CAD/S/P LAD PCI. SOB with vasc. congestion on CXR following PCI with groin oozing, all resolved H/O C.A. PCI and occ. RCA with Nl LV fx. Anemia Diabetes/Diabetic neuropathy HLD Hypothyroidism OA Plan: Check CBC, BMP, trop this AM Plan D/C later on same meds except no metformin for two days (resume Sat.) and add Plavix 75/day, minimum one year. OOB/Ambulate/Recheck groin prior to d/c home. D/C home later today if all is stable Office F/U next week. Cardiac Rehab to be arranged. Anemia evaluation as out-pt..
[2017-09-30 08:38] LABS: MEAN CELL VOLUME 79.8 fl (80.0-105.0); MEAN CORPUSCULAR HEMOGLOBIN 24.8 pg (25.0-35.0); MEAN CORPUSCULAR HGB CONC 31.1 g/dl (31.0-37.0); MEAN PLATELET VOLUME 9.2 fl (7.0-11.0); RBC 3.22 10^6/uL (3.5-6.1); RED CELL DISTRIBUTION WIDTH 14.6 % (11.5-14.5)
[2017-09-30 08:49] LABS: CALCIUM 8.9 mg/dL (8.4-10.5)
[2017-09-30 09:26] LABS: TROPONIN I 0.81 ng/mL
[2017-09-30 13:25] VITALS: BP 167/70; PULSE 80; RESP 21; TEMP 98.1
== END 2017-09-30 13:48 | disposition home or self-care (01) ==
LOC: CATH 06:21 → 2RSO 08:42 → CATH 09-30 13:48
PROVIDERS: ATTEND Internal Medicine Cardiovascular Disease
DX: I25.10 Atherosclerotic heart disease of native coronary artery without angina pectoris (principal); T82.855A Stenosis of coronary artery stent, initial encounter; I25.82 Chronic total occlusion of coronary artery; D64.9 Anemia, unspecified; E03.9 Hypothyroidism, unspecified; E78.5 Hyperlipidemia, unspecified; E11.40 Type 2 diabetes mellitus with diabetic neuropathy, unspecified; M19.90 Unspecified osteoarthritis, unspecified site; Y83.8 Other surgical procedures as the cause of abnormal reaction of the patient, or of later complication, without mention of misadventure at the time of the procedure; Z79.82 Long term (current) use of aspirin; Z79.4 Long term (current) use of insulin; Z95.5 Presence of coronary angioplasty implant and graft
CPT/HCPCS: 36415 ×2; 71045; 80048 ×2; 80061; 82948 ×2; 84484; 85025; 85027; 85175; 85610; 85730; 86850; 86900; 93005; 93458; 99152; C1725; C1760; C1769 ×2; C1874 ×2; C1887; C2629; C9600; C9601; J1644 ×2; J1940; J2250; J3010; J7030; Q9966; Q9967 ×2

== ENCOUNTER 2017-11-03 12:42 | Inpatient (IN) | payer MEDICARE ==
[2017-11-03 13:16] LABS: BASO # 0.02 K/mm3 (0.0-2.0); BASO % 0.3 % (0.0-3.0); EOS # 0.1 (0.0-0.7); EOS % 1.1 % (1.5-5.0); GRAN # 3.73 (1.4-6.5); GRAN % 60.2 % (50.0-68.0); LYMPH % 32.6 % (22.0-35.0); MEAN CELL VOLUME 80.8 fl (80.0-105.0); MEAN CORPUSCULAR HEMOGLOBIN 25.1 pg (25.0-35.0); MEAN CORPUSCULAR HGB CONC 31.1 g/dl (31.0-37.0); MEAN PLATELET VOLUME 9.1 fl (7.0-11.0); MONO # 0.4 (0.1-0.6); MONO % 5.8 % (1.0-6.0); RBC 2.39 10^6/uL (3.5-6.1); RED CELL DISTRIBUTION WIDTH 15.4 % (11.5-14.5); WHITE BLOOD COUNT 6.2 10^3/ul (4.5-11.0)
--- NOTE | 2017-11-03 13:19 | ED PDOC ---
Arrival/HPI - General Chief Complaint: Shortness Of Breath Time Seen by Provider: 11/03/17 12:56 Historian: Patient EM Caveat: Acuity of Condition - History of Present Illness Narrative History of Present Illness (Text): 11/03/17 13:15 76 y/o F w/ h/o CAD s/p PCI presenting with persistent mid sternal chest pain ongoing intermittently for the last couple of hours. The patient reports waking up with mid-sternal chest pain with dyspnea on exertion that began this morning. She reports taking a SL NTG for her chest pain which she reports helped , but still had been encountering shortness of breath. The patient reports having a PCI performed in 09/[address] Modi(cardiology) and states she had never felt better since. She also reports having a feeling of fluid in her lungs as well as some lower extremity edema. She reports taking Plavix. She denies dizziness, CARDOZO, nausea/emesis, abdominal pain, back pain, numbness/ tingling, weakness, or neck pain. PCP: Dr. Mcintyre Specialist: Dr. Hernandez(cardiology) Time/Duration: Prior to Arrival Symptom Onset: Sudden Symptom Course: Intermittent Quality: Pressure Severity Level: Moderate Activities at Onset: Rest Context: Walking, Exertion, Home Past Medical History - Provider Review Nursing Documentation Reviewed: Yes - Infectious Disease Hx of Infectious Diseases: None - Reproductive Menopause: Yes - Cardiac Hx Hypertension: Yes - Pulmonary Hx Respiratory Disorders: No - Neurological Hx Paralysis: No - HEENT Hx HEENT Disorder: Yes (macular degeneration) - Renal Hx Renal Disorder: No - Endocrine/Metabolic Hx Endocrine Disorders: Yes Hx Diabetes Mellitus Type 2: Yes Hx Hypothyroidism: Yes - Hematological/Oncological Hx Blood Transfusions: Yes Hx Blood Transfusion Reaction: No - Integumentary Hx Dermatological Disorder: No Other/Comment: ecchymosis to upper extremeties - Musculoskeletal/Rheumatological Hx Musculoskeletal Disorders: Yes Other/Comment: edema to lower extremeties - Gastrointestinal Hx Gastrointestinal Disorders: Yes (occ diarrhea) - Genitourinary/Gynecological Hx Genitourinary Disorders: No - Psychiatric Hx Emotional Abuse: No Hx Physical Abuse: No Hx Substance Use: No - Surgical History Hx Cardiac Catheterization: Yes (September 2017) - Anesthesia Hx Anesthesia Reactions: No Hx Malignant Hyperthermia: No - Suicidal Assessment Feels Threatened In Home Enviroment: No Family/Social History - Physician Review Nursing Documentation Reviewed: Yes Family/Social History: Unknown Family HX Smoking Status: Never Smoked Hx Alcohol Use: No Hx Substance Use: No Allergies/Home Meds Allergies/Adverse Reactions: Allergies lisinopril Allergy (Severe, Verified 09/27/17 11:22) ANAPHYLAXIS THROAT CLOSING Home Medications: Home Meds Medication Instructions Recorded Confirmed Glipizide [Glucotrol] 5 mg PO BID 08/24/14 11/03/17 Insulin Detemir [Levemir Flextouch] 40 unit SC 08/24/14 11/03/17 Metoprolol Succinate XL [Toprol XL] 50 mg PO BID 08/24/14 11/03/17 Isosorbide Mononitrate [Imdur] 60 mg PO QAM 12/20/14 11/03/17 Levothyroxine [Synthroid] 0.125 mg PO DAILY 12/22/15 11/03/17 amLODIPine [Norvasc] 5 mg PO DAILY 12/22/15 11/03/17 Gabapentin [Neurontin] 600 mg PO HS 12/24/15 11/03/17 hydroCHLOROthiazide [Hydrodiuril] 25 mg PO DAILY 12/24/16 11/03/17 Aspirin [Ecotrin] 81 mg PO BID 01/05/17 11/03/17 Simvastatin [Zocor] 40 mg PO DAILY 09/27/17 11/03/17 Clopidogrel [Plavix] 75 mg PO DAILY 09/30/17 11/03/17 Review of Systems - Review of Systems Constitutional: Fatigue. absent: Fevers, Night Sweats Respiratory: SOB. absent: Cough, Sputum, Wheezing Cardiovascular: Chest Pain, Edema, DOUGLASS, Orthopnea. absent: Palpitations, Calf Pain Gastrointestinal: absent: Abdominal Pain, Constipation, Diarrhea, Nausea, Vomiting Genitourinary Female: absent: Dysuria, Hematuria Musculoskeletal: absent: Back Pain, Neck Pain, Myalgias Neurological: absent: Headache, Dizziness, Disequilibrium Hemo/Lymphatic: Easy Bruising Physical Exam Vital Signs Reviewed: Yes Vital Signs Temp Pulse Resp BP Pulse Ox 11/03/17 15:50 98 F 76 18 142/56 L 98 11/03/17 14:05 136/54 L 11/03/17 14:00 70 18 136/54 L 97 11/03/17 12:57 24 11/03/17 12:42 98.4 F 80 26 H 149/61 100 Temperature: Afebrile Mental Status: Positive for: Alert and Oriented X 3 - Systems Exam Head: Present: Atraumatic, Normocephalic Mouth: Present: Moist Mucous Membranes Neck: Present: Normal Range of Motion. No: Meningeal Signs, MIDLINE TENDERNESS Respiratory/Chest: Present: Clear to Auscultation, Good Air Exchange, Tachypneic. No: Respiratory Distress, Wheezes, Decreased Breath Sounds Cardiovascular: Present: Regular Rate and Rhythm, Normal S1, S2, Peripheal Pulses Present Abdomen: Present: Normal Bowel Sounds. No: Tenderness, Distention, Peritoneal Signs Upper Extremity: Present: NORMAL PULSES Lower Extremity: Present: Edema, NORMAL PULSES. No: CALF TENDERNESS Neurological: Present: GCS=15, CN II-XII Intact, Speech Normal Skin: Present: Warm, Dry, Normal Color, Other (Multiple ecchymoses noted to upper extremities b/l) Psychiatric: Present: Alert, Oriented x 3, Normal Insight, Normal Concentration Medical Decision Making ED Course and Treatment: Impression 76F w/ h/o HTN, CAD presenting with CP & SOB Given the patient's multiple cardiovascular risk factors and persistent pain, she will be kept in hospital for further observation. HEART Score: 6(moderate risk) Differential Diagnoses Includes but is not Limited To: ACS CHF PE Plan --Labs --IVF --EKG --CXR --pRBCs --Cardiology consult --Reassess & disposition Progress Notes 11/03/17 13:49 Labs reviewed with hyperkalemia of 5.4 noted and anemia of 6.0 noted. Consent obtained. Call placed to PCP. Case discussed with Dr. Joyce, who recommends follow-up treatment for hyperkalemia and diagnosis of congestive heart failure. Hyperkalemia protocol and Lasix ordered. 11/03/2017 13:47 Chest X-ray IMPRESSION: No active disease. No significant interval changes compared to the prior examination(s). Dictator: Eliezer Linton MD. 11/03/17 14:[address] Mcintyre(PCP) who agrees with plan for admission. - Lab Interpretations Lab Results: 11/03/17 13:10 11/03/17 13:10 Lab Results 11/03/17 13:10: PT 11.3, INR 0.99, APTT 27.1 11/03/17 13:10: Sodium 138, Potassium 5.4 H, Chloride 108 H, Carbon Dioxide 20 L , Anion Gap 15, BUN 33 H, Creatinine 1.4 H, Est GFR ( Amer) 44, Est GFR ( Non-Af Amer) 37, Random Glucose 342 H* D, Calcium 8.9, Magnesium 2.2, Total Bilirubin 0.2, AST 22, ALT 17, Alkaline Phosphatase 129 H, Lactate Dehydrogenase 395, Total Creatine Kinase 101, Troponin I < 0.01 D, NT-Pro-B Natriuret Pep 1730 H, Total Protein 6.4, Albumin 3.3, Globulin 3.1, Albumin/ Globulin Ratio 1.1 11/03/17 13:10: WBC 6.2 D, RBC 2.39 L, Hgb 6.0 L* D, Hct 19.3 L*, MCV 80.8, MCH 25.1, MCHC 31.1, RDW 15.4 H, Plt Count 348, MPV 9.1, Gran % 60.2, Lymph % ( Auto) 32.6, Hendry % (Auto) 5.8, Eos % (Auto) 1.1 L, Baso % (Auto) 0.3, Gran # 3.73, Lymph # (Auto) 2.0, Hendry # (Auto) 0.4, Eos # (Auto) 0.1, Baso # (Auto) 0.02 - RAD Interpretation Radiology Orders: 11/03/17 12:57 CHEST TWO VIEWS (PA/LAT) [RAD] Stat - Medication Orders Current Medication Orders: Amlodipine Besylate (Norvasc) 5 mg PO DAILY [facility] Atorvastatin Calcium (Lipitor) 20 mg PO DAILY [facility] Gabapentin (Neurontin) 600 mg PO HS [facility]ARA PRN Reason: Protocol Sodium Bicarbonate 50 meq/ (Dextrose) 1,050 mls @ 100 mls/hr IV .[id number] [facility]ZARA Last Admin: 11/03/17 15:16 Dose: 100 mls/hr eMAR Start Stop Document 11/03/17 15:16 SRE (Rec: 11/03/17 15:18 SRE [id number]) Intravenous Solution Start Date 11/03/17 Start Time 15:18 Insulin Detemir (Levemir) 40 unit SC HS [facility] Isosorbide Mononitrate (Imdur) 60 mg PO QAM [facility] Levothyroxine Sodium (Synthroid) 125 mcg PO DAILY [facility] Metoprolol Succinate (Toprol Xl) 50 mg PO BID [facility]ARA Discontinued Medications Albuterol Sulfate (Albuterol 0.5% Inhal Esther (2.5 Mg/0.5 Ml) Ud) 2.5 mg IH STAT STA Stop: 11/03/17 13:52 Last Admin: 11/03/17 14:05 Dose: 2.5 mg Furosemide (Lasix) 20 mg IVP STAT STA Stop: 11/03/17 13:53 Last Admin: 11/03/17 14:05 Dose: 20 mg MAR Blood Pressure Document 11/03/17 14:05 SRE (Rec: 11/03/17 14:05 SRE [id number]) Blood Pressure Blood Pressure (100/60-150/90) 136/54 IVP Administration Document 11/03/17 14:05 SRE (Rec: 11/03/17 14:05 SRE [id number]) Charges for Administration # of IVP Administrations 1 Calcium Gluconate 1,000 mg/ (Sodium Chloride) 110 mls @ 110 mls/hr IVPB ONCE ONE Stop: 11/03/17 14:59 Last Admin: 11/03/17 14:21 Dose: 110 mls/hr eMAR Start Stop Document 11/03/17 14:21 SRE (Rec: 11/03/17 14:22 SRE [id number]) Intravenous Solution Start Date 11/03/17 Start Time 14:22 End Date 11/03/17 End time 15:30 Total Infusion Time 68 Disposition/Present on Arrival - Present on Arrival Any Indicators Present on Arrival: No History of DVT/PE: No History of Uncontrolled Diabetes: No Urinary Catheter: No History of Decub. Ulcer: No History Surgical Site Infection Following: None - Disposition Have Diagnosis and Disposition been Completed?: Yes Diagnosis: Anemia, Chest pain, CHF (congestive heart failure) Disposition: HOSPITALIZED Disposition Time: 14:21 Patient Plan: Admission Patient Problems: Current Active Problems Problem Status Onset Anemia Acute Chest pain Acute CHF (congestive heart failure) Acute Condition: FAIR
[2017-11-03 13:26] LABS: INR 0.99; PARTIAL THROMBOPLASTIN TIME 27.1 Seconds (25.1-36.5); PROTHROMBIN TIME 11.3 SECONDS (9.4-12.5)
[2017-11-03 13:34] LABS: ALB/GLOB RATIO 1.1 (1.1-1.8); ALBUMIN 3.3 g/dL (3.0-4.8); ALT/SGPT 17 U/L (7-56); AST/SGOT 22 U/L (14-36); BLOOD UREA NITROGEN 33 mg/dL (7-21); CALCIUM 8.9 mg/dL (8.4-10.5); GFR AFRICAN-AMERICAN 44; GFR NON-AFRICAN AMERICAN 37
[2017-11-03 13:37] LABS: B-TYPE NATRIURETIC PEPTIDE 1730 pg/mL (0-450); TROPONIN I < 0.01 ng/mL
--- NOTE | 2017-11-03 13:49 | RAD ---
Date of service: 11/03/2017 HISTORY: Chest pain COMPARISON: 09/29/2017. TECHNIQUE: Chest PA and lateral FINDINGS: LUNGS: No active pulmonary disease. PLEURA: No significant pleural effusion identified. No pneumothorax apparent. CARDIOVASCULAR: No radiographic findings to suggest acute or significant cardiovascular disease. OSSEOUS STRUCTURES: No significant abnormalities. VISUALIZED UPPER ABDOMEN: Normal. OTHER FINDINGS: None. IMPRESSION: No active disease. No significant interval change compared to the prior examination(s).
[2017-11-03] MEDS ORDERED: Albuterol 0.5% Inhal Sol (2.5 mg/0.5 ml) UD IH STA (13:51)
[2017-11-03 14:59] LABS: URINE BILIRUBIN NEGATIVE (NEGATIVE); URINE BLOOD NEGATIVE (NEGATIVE); URINE GLUCOSE (UA) >=1000 mg/dL (NEGATIVE); URINE LEUKOCYTE ESTERASE NEGATIVE Leu/uL (NEGATIVE); URINE PROTEIN 100 mg/dL (<30 mg/dL); URINE UROBILINOGEN 0.2 E.U./dL (<1 E.U./dL)
[2017-11-03 15:04] LABS: URINE APPEARANCE CLEAR (CLEAR); URINE COLOR YELLOW (YELLOW)
[2017-11-03 15:09] LABS: URINE BACTERIA MOD (NEG); URINE RBC 0 - 2 /hpf (0-2)
[2017-11-03] MEDS: Sodium Bicarbonate 8.4% 50 MEQ in Dextrose 5% In Water 1,000 ML IV SCH (15:16)
[2017-11-03] MEDS: Metoprolol Succinate 50 mg XL Tab PO SCH (17:44)
--- NOTE | 2017-11-03 17:47 | CARD ---
APPROVED REPORT Date of service: 11/03/2017 EKG Measurement Heart [id number] <Conclusion> Normal sinus rhythm Poor R Progression V1-V4 Non Specific ST-T Changes.
[2017-11-03 19:17] VITALS: BMI 28.2
[2017-11-03] MEDS ORDERED: Albuterol-Ipratrop 3 mg / 0.5 (3 ml) UD IH ONE (20:28)
[2017-11-03] MEDS: Insulin Reg-LOW-Coverage SC SCH (22:00)
[2017-11-03] MEDS: Insulin Detemir 100 units/ml Vial (Levemir) SC SCH (22:31)
[2017-11-03] MEDS ORDERED: Albuterol-Ipratrop 3 mg / 0.5 (3 ml) UD IH SCH (23:00)
[2017-11-04] MEDS: Sodium Bicarbonate 8.4% 50 MEQ in Dextrose 5% In Water 1,000 ML IV SCH (01:00)
[2017-11-04] MEDS ORDERED: Morphine 2 mg/ml ISec IVP STA (02:15)
[2017-11-04 08:22] LABS: BASO # 0.02 K/mm3 (0.0-2.0); BASO % 0.3 % (0.0-3.0); EOS # 0.1 (0.0-0.7); GRAN # 4.39 (1.4-6.5); GRAN % 61.6 % (50.0-68.0); LYMPH # 1.9 (1.2-3.4); MEAN CELL VOLUME 82.8 fl (80.0-105.0); MEAN CORPUSCULAR HEMOGLOBIN 26.7 pg (25.0-35.0); MEAN CORPUSCULAR HGB CONC 32.2 g/dl (31.0-37.0); MEAN PLATELET VOLUME 9.4 fl (7.0-11.0); MONO # 0.7 (0.1-0.6); MONO % 9.1 % (1.0-6.0); RBC 3.67 10^6/uL (3.5-6.1); RED CELL DISTRIBUTION WIDTH 15.7 % (11.5-14.5); WHITE BLOOD COUNT 7.1 10^3/ul (4.5-11.0)
[2017-11-04 08:23] LABS: HEMOGLOBIN 9.8 g/dL (12.0-16.0)
[2017-11-04] MEDS: Insulin Reg-LOW-Coverage SC SCH ×4 (08:34→22:14)
--- NOTE | 2017-11-04 08:58 | CON ---
Copied To: Amor Chow MD Attending MD: Amor Chow MD DATE: 11/04/2017 CONSULTATION IN GASTROENTEROLOGY REQUESTING PHYSICIAN: Kameron Mcintyre MD. REASON FOR CONSULT: I have been asked to see this 76-year-old female with known coronary artery disease, status post cardiac catheterization with placement of 2 coronary artery stents approximately 1 month ago, who comes to the hospital with substernal chest pain and dyspnea at rest. In the emergency room, the patient had blood work, which showed her to be profoundly anemic with a hemoglobin in the 6 g range. The patient took a sublingual nitro with some relief of her chest pain. She came to the hospital for further evaluation and treatment. She denies any abdominal pain, rectal bleeding, melena, nausea, vomiting, fevers or chills. The patient also felt like she was sensing some fluid in her lungs and lower extremities. She is currently on Plavix and aspirin. PAST MEDICAL HISTORY: Notable for coronary artery disease, status post recent coronary artery stent placement; hypertension; type 2 diabetes mellitus; hypothyroidism; macular degeneration. SOCIAL HISTORY: She denies cigarette smoking or alcohol use. FAMILY HISTORY: Noncontributory. REVIEW OF SYSTEMS: Fourteen-point review of systems is notable for chest pain and dyspnea at rest. MEDICATIONS AT HOME: Include Glucotrol, insulin, metoprolol, Isordil, Levoxyl, Norvasc, Neurontin, HydroDIURIL, aspirin, Zocor and Plavix. PHYSICAL EXAMINATION: GENERAL: Well-developed female, lying in bed, appears comfortable. VITAL SIGNS: Reveal temperature of 97.6, blood pressure 158/70, heart rate 69. HEENT: Reveals sclerae to be white. Conjunctivae pale. NECK: Supple. CHEST: Reveals lungs to be clear. HEART: Reveals a regular rate and rhythm. ABDOMEN: Flabby, soft, nontender. No mass. EXTREMITIES. Show trace pedal edema. LABORATORY DATA: Reveals on admission to the hospital, hemoglobin is 6, platelet count of 348,000. This morning after 2 units of packed red blood cells, her hemoglobin is 9.8, white blood cell count 7.1. Chemistries reveal BUN 33, creatinine 1.4, blood sugar 342, BNP is 1730 IMPRESSION: A 76-year-old female with known coronary artery disease, status post recent coronary artery stent placement with substernal chest pain, dyspnea at rest, profound anemia. I suspect that her angina and shortness of breath are related to the severe anemia. She feels better this morning. After receiving 2 units of packed red blood cells, her hemoglobin is up to 9.8. One must rule out GI bleeding, although the patient does not give any symptoms of melena or rectal bleeding. RECOMMENDATIONS: 1. We will schedule the patient for an upper endoscopy for the morning. 2. We will need cardiac clearance 3. Check stool guaiacs. 4. I will start the patient on IV Protonix. Amor Chow MD
[2017-11-04] MEDS: Levothyroxine 125 MCG TAB PO SCH (09:27)
[2017-11-04] MEDS: Metoprolol Succinate 50 mg XL Tab PO SCH ×2 (09:28→17:01)
[2017-11-04 09:50] LABS: ALB/GLOB RATIO 1.1 (1.1-1.8); ALBUMIN 3.5 g/dL (3.0-4.8); CALCIUM 9.5 mg/dL (8.4-10.5)
--- NOTE | 2017-11-04 12:28 | CON ---
Copied To: Collins Modi MD Attending MD: Collins Modi MD DATE: 11/04/2017 INDICATIONS: Chest pain, shortness of breath, severe anemia. HISTORY OF PRESENT ILLNESS: This is a 76-year-old woman known to our practice with recent coronary interventions (stenting of LAD and circumflex arteries) who presents with worsening chest pain and dyspnea, exertional chest pain responsive to nitroglycerin and found to have severe anemia with a hemoglobin of 6 initially. She received 2 units of blood. Her current hemoglobin is 9.8. There is no chest pain this morning. There is no shortness of breath, orthopnea, PND, syncope, presyncope, lightheadedness, dizziness, vertigo, palpitation, edema, claudication. There is no fever, chills, cough, sputum production, hemoptysis, nausea, vomiting, diarrhea, constipation or melena. PAST MEDICAL HISTORY: Her past medical history is complex. She has coronary artery disease, recent coronary interventions, hyperlipidemia, PAD, diabetes, hypothyroidism, peptic ulcer disease, right total hip replacement. MEDICATIONS: At the time of admission include Horizant, Imdur, metoprolol, levothyroxine, amlodipine, enalapril-HCT, gabapentin, glipizide, Plavix, Levemir, aspirin. ALLERIGES: SHE NOTES AN ALLERGY TO LISINOPRIL. SOCIAL HISTORY: She lives at home. She is ambulatory. She does not smoke. She does not drink alcohol significantly. FAMILY HISTORY: Noncontributory. REVIEW OF SYSTEMS: A 10-point review of systems otherwise unremarkable except as noted above. PHYSICAL EXAMINATION: GENERAL: She is a well-developed woman lying in bed on telemetry, in no acute distress. VITAL SIGNS: Notable for sinus rhythm 69 beats per minute. She is afebrile. Blood pressure 126/62, respirations 18-20, O2 sat 97-98% on room air. HEENT: Reveals no neck vein distention, thyromegaly, carotid bruits. Mucous membranes moist. Conjunctiva pink. NECK: Supple. LUNGS: Lung downing clear. HEART: Reveals normal first and second heart sounds. ABDOMEN: Soft. Bowel sounds present. No mass, organomegaly, tenderness, rebound, guarding. No CVA tenderness. No palpable abdominal aortic aneurysm. EXTREMITIES: Reveals no cyanosis, clubbing or edema. NEUROLOGIC: She is awake, alert and oriented. PSYCH: Normal as to mood and affect. SKIN: Warm and dry. No rashes or cellulitis. LABORATORY AND IMAGING: Chest x-ray revealed no active disease. EKG demonstrates regular sinus rhythm, poor R-wave progression, ST-T wave changes consistent with ischemia, more prominent than on a prior EKG. Initial hemoglobin 6, repeat 9.8. Initial hematocrit 19.3, repeat 30.4. White count normal. Platelet count normal. PT/INR and PTT normal. Electrolytes initially notable for potassium of 5.4, repeat 4.8, BUN 33, repeat 28, creatinine 1.4, repeat 1.2. Blood sugars are in the 200-300 range. Magnesium 2.2. LFTs unremarkable. CK 101, troponin less than 0.01. BNP 1730. Urinalysis is noted. IMPRESSION: Ani Renteria is a 76-year-old woman with known coronary artery disease, status post recent coronary interventions, on aspirin and Plavix, who came in with chest pain responsive to nitroglycerin and dyspnea on exertion, found to have severe anemia, status post 2 units blood transfusions, whose hemoglobin is now 9.8 and is resting comfortably in bed without symptoms of chest pain or shortness of breath. There is no obvious source of bleeding. Dr. Chow has seen her and is planning an upper endoscopy for tomorrow. I will review her old records. Aspirin and Plavix are on hold because of possible acute GI bleeding. We will continue metoprolol. She is getting Protonix, amlodipine, gabapentin, Lipitor, Imdur. She is getting insulin. She is on telemetry. She can be out of bed to chair. We will check stool for occult blood and monitor hemoglobin and hematocrits. I will make additional recommendations based on her clinical course. Given her recent stents, aspirin and Plavix should be resumed as soon as possible following the GI evaluation. Collins Modi MD MTDOmar
[2017-11-04] MEDS: Magnesium Oxide 400 mg Tab UD PO SCH (17:01)
[2017-11-04] MEDS: Insulin Detemir 100 units/ml Vial (Levemir) SC SCH (22:15)
[2017-11-05 06:23] LABS: HEMOGLOBIN 9.4 g/dL (12.0-16.0); MEAN CELL VOLUME 82.6 fl (80.0-105.0); MEAN CORPUSCULAR HEMOGLOBIN 26.4 pg (25.0-35.0); MEAN PLATELET VOLUME 9.6 fl (7.0-11.0); RBC 3.56 10^6/uL (3.5-6.1); RED CELL DISTRIBUTION WIDTH 15.6 % (11.5-14.5); WHITE BLOOD COUNT 6.6 10^3/ul (4.5-11.0)
[2017-11-05] MEDS ORDERED: Propofol 10 mg/ml Inj (20 ML) ONE (07:48)
--- NOTE | 2017-11-05 07:52 | CP.PCM.PN ---
Subjective - Date & Time of Evaluation Date of Evaluation: 11/05/17 Time of Evaluation: 07:00 - Subjective Subjective: Stable on 2R. No CP or SOB. V/S noted. RSR. PE: Lungs: clear Cor.: S1S2 Abd.: soft Ext.: no edema Neuro.: alert Labs noted: H/H= 9.4/29.4 Trops X 2: Neg Objective - Vital Signs/Intake and Output Vital Signs (last 24 hours): Temp Pulse Resp BP Pulse Ox 98.0 F 69 19 144/62 95 11/05/17 06:00 11/05/17 06:00 11/05/17 06:00 11/05/17 06:00 11/05/17 06:00 Intake and Output: 11/05/17 11/05/17 06:59 18:59 Intake Total 120 Balance 120 - Medications Medications: Current Medications Amlodipine Besylate (Norvasc) 5 mg PO DAILY [facility] Last Admin: 11/04/17 09:27 Dose: 5 mg Atorvastatin Calcium (Lipitor) 20 mg PO DAILY [facility] Last Admin: 11/04/17 09:27 Dose: 20 mg Gabapentin (Neurontin) 600 mg PO HS [facility] PRN Reason: Protocol Last Admin: 11/04/17 22:25 Dose: 600 mg Insulin Detemir (Levemir) 40 unit SC HS [facility] Last Admin: 11/04/17 22:15 Dose: 40 units Insulin Human Regular (Humulin R Low) 0 units SC [facility] PRN Reason: Protocol Last Admin: 11/04/17 22:14 Dose: 2 unit Isosorbide Mononitrate (Imdur) 60 mg PO QAM [facility] Last Admin: 11/04/17 09:27 Dose: 60 mg Levothyroxine Sodium (Synthroid) 125 mcg PO DAILY [facility] Last Admin: 11/04/17 09:27 Dose: 125 mcg Magnesium Oxide (Mag-Ox) 400 mg PO BID [facility] Last Admin: 11/04/17 17:01 Dose: 400 mg Metoprolol Succinate (Toprol Xl) 50 mg PO BID [facility] Last Admin: 11/04/17 17:01 Dose: 50 mg Pantoprazole Sodium (Protonix Inj) 40 mg IVP DAILY [facility] Last Admin: 11/04/17 09:26 Dose: 40 mg Potassium Chloride (K-Dur 20 Meq Er Tab) 20 meq PO BRK [facility]ZARA - Labs Labs: 08/17/18 05:20 11/04/17 08:40 PT 11.3 SECONDS (9.4-12.5) 11/03/17 13:10 INR 0.99 11/03/17 13:10 APTT 27.1 Seconds (25.1-36.5) 11/03/17 13:10 Assessment and Plan - Assessment and Plan (Free Text) Assessment: Chest Pain and DOUGLASS Severe anemia/R/O GIB CAD/PCIs/Recent LAD PCI 09/29/17 PUD HLD PAD Diabetes Hypothyroidism Right THR Plan: As per Dr. Chow. EGD today. Monitor H/H, stool for OB Resume ASA, Plavix as soon as possible. Will follow.
[2017-11-05] MEDS ORDERED: Etomidate 20 mg/10ml Inj IV ONE (07:54)
--- NOTE | 2017-11-05 07:55 | CP.PCM.HP ---
<Kaila Serrato - Last Filed: 11/05/17 09:38> History of Present Illness - History of Present Illness History of Present Illness: C/O CP & SOB. Obs Ms Walker, 76 F, with PMHx DM2, HLD, CAD s/p recent MELODY presenting with persistent mid sternal chest pain ongoing intermittently x last couple of hours. Begining in AM, pt woke up with mid-sternal chest pain with dyspnea on exertion. SL NTG helped the pain, but still had been remained shortness of breath. The patient reports having a PCI performed in 09/[address] Modi( cardiology) and states she had never felt better since. ROS: denies dizziness, CARDOZO, SOB, nausea/emesis, abdominal pain, back pain, numbness/tingling, weakness, or neck pain. ED course: VS afebril. HR 80s. BP 140s/60s. RR 26, 100RA CBC: Hb 6. Coags normal K 5.4. bicarb 20. bun 33/cre 1.4. glucose 342. trops neg. bnp 1730 CXR: No active disease. No significant interval changes EKG: NSR 76. Poor R progression V1-V4, nonspecific STTchanges. QTc 436 She received duoneb, laxis 20 IVx1, calcium gluconate, bicarb, norvasc, 2u pRBC. IV lasix PMH CAD s/p drug-eluting stent (09/29/17) @ LAD, prior stents at L cir, HLD - recent cath (09/29/17): severe LAD stenosis, patent L circ stents, chronic occluded RCA. preseved LV function Diabetes, non-insulin dependenet, with neuropathy Hypothyroisdam General osteoarthritis Chronic anemia macular degeneration PAD PSH (09/30):R hip total replacement SH - denies smoking, drinking, etoh All - lisinopril - anaphylaxis, throat closing Med - reviewed Cardio: Dr Rdz Primary: Dr Mcintyre GI: Dr Chow Present on Admission - Present on Admission Any Indicators Present on Admission: No Past Patient History - Infectious Disease Hx of Infectious Diseases: None - Past Medical History & Family History Past Medical History?: Yes - Past Social History Smoking Status: Former Smoker - CARDIAC Hx Hypercholesterolemia: Yes Hx Hypertension: Yes Hx Peripheral Edema: Yes - PULMONARY Hx Respiratory Disorders: No - NEUROLOGICAL Hx Neurological Disorder: Yes (numbness bilat hands) Hx Dizziness: Yes Other/Comment: vertigo - HEENT Hx HEENT Problems: Yes (macular degeneration) Hx Cataracts: Yes (BL cataract; Left sxg.) - RENAL Hx Chronic Kidney Disease: No - ENDOCRINE/METABOLIC Hx Endocrine Disorders: Yes Hx Diabetes Mellitus Type 2: Yes Hx Hypothyroidism: Yes - HEMATOLOGICAL/ONCOLOGICAL Hx Blood Disorders: Yes Hx Anemia: Yes Hx Shingles: Yes - INTEGUMENTARY Hx Dermatological Problems: No Other/Comment: ecchymosis to upper extremeties - MUSCULOSKELETAL/RHEUMATOLOGICAL Hx Falls: Yes - GASTROINTESTINAL Hx Gastrointestinal Disorders: Yes (occ diarrhea) - GENITOURINARY/GYNECOLOGICAL Hx Genitourinary Disorders: No - PSYCHIATRIC Hx Psychophysiologic Disorder: No - SURGICAL HISTORY Hx Surgeries: Yes Hx Cardiac Catheterization: Yes (2 stent september, 2017) Hx Coronary Stent: Yes Other/Comment: Hip replacement (2016) - ANESTHESIA Hx Anesthesia Reactions: No Hx Malignant Hyperthermia: No Meds Allergies/Adverse Reactions: Allergies Allergy/AdvReac Type Severity Reaction Status Date / Time lisinopril Allergy Severe ANAPHYLAXIS Verified 09/27/17 11:22 Physical Exam - Constitutional Appears: No Acute Distress - Head Exam Head Exam: ATRAUMATIC, NORMAL INSPECTION, NORMOCEPHALIC - Eye Exam Eye Exam: EOMI, Normal appearance, PERRL. absent: Scleral icterus Pupil Exam: NORMAL ACCOMODATION - ENT Exam ENT Exam: Mucous Membranes Moist - Neck Exam Additional comments: supple - Respiratory Exam Respiratory Exam: Clear to Auscultation Bilateral. absent: Rales, Rhonchi, Wheezes - Cardiovascular Exam Cardiovascular Exam: REGULAR RHYTHM, +S1, +S2 - GI/Abdominal Exam GI & Abdominal Exam: Normal Bowel Sounds, Soft. absent: Distended, Firm, Guarding, Rigid, Tenderness - Extremities Exam Extremities exam: Positive for: normal capillary refill, pedal edema, pedal pulses present. Negative for: calf tenderness - Back Exam Back exam: absent: CVA tenderness (L), CVA tenderness (R) - Neurological Exam Neurological exam: Alert, Oriented x3 - Psychiatric Exam Psychiatric exam: Normal Affect, Normal Mood - Skin Skin Exam: Dry, Warm Results - Vital Signs Recent Vital Signs: Last Vital Signs Temp 98.0 F 11/05/17 06:00 Pulse 69 11/05/17 06:00 Resp 19 11/05/17 06:00 BP 144/62 11/05/17 06:00 Pulse Ox 95 11/05/17 06:00 - Labs Result Diagrams: 11/05/17 05:20 11/04/17 08:40 Labs: Laboratory Results - last 24 hr 11/04/17 11/04/17 11/04/17 08:15 08:30 08:40 WBC 7.1 RBC 3.67 Hgb 9.8 L D Hct 30.4 L MCV 82.8 MCH 26.7 MCHC 32.2 RDW 15.7 H Plt Count 374 MPV 9.4 Gran % 61.6 Lymph % (Auto) 27.0 [place] % (Auto) 9.1 H Eos % (Auto) 2.0 Baso % (Auto) 0.3 Gran # 4.39 Lymph # (Auto) 1.9 [place] # (Auto) 0.7 H Eos # (Auto) 0.1 Baso # (Auto) 0.02 Sodium 142 Potassium 4.8 Chloride 107 Carbon Dioxide 24 Anion Gap 16 BUN 28 H Creatinine 1.2 Est GFR ( Amer) 53 Est GFR (Non-Af Amer) 44 POC Glucose (mg/dL) Random Glucose 165 H Calcium 9.5 Total Bilirubin 0.6 AST 13 L D ALT 20 Alkaline Phosphatase 129 H Troponin I 0.02 D Total Protein 6.6 Albumin 3.5 Globulin 3.1 Albumin/Globulin Ratio 1.1 11/04/17 11/04/17 11/04/17 11:15 16:07 21:30 WBC RBC Hgb Hct MCV MCH MCHC RDW Plt Count MPV Gran % Lymph % (Auto) [place] % (Auto) Eos % (Auto) Baso % (Auto) Gran # Lymph # (Auto) [place] # (Auto) Eos # (Auto) Baso # (Auto) Sodium Potassium Chloride Carbon Dioxide Anion Gap BUN Creatinine Est GFR ( Amer) Est GFR (Non-Af Amer) POC Glucose (mg/dL) 231 H 272 H 304 H Random Glucose Calcium Total Bilirubin AST ALT Alkaline Phosphatase Troponin I Total Protein Albumin Globulin Albumin/Globulin Ratio 11/05/17 11/05/17 11/05/17 01:51 05:20 07:20 WBC 6.6 RBC 3.56 Hgb 9.4 L Hct 29.4 L MCV 82.6 MCH 26.4 MCHC 32.0 RDW 15.6 H Plt Count 375 MPV 9.6 Gran % Lymph % (Auto) [place] % (Auto) Eos % (Auto) Baso % (Auto) Gran # Lymph # (Auto) [place] # (Auto) Eos # (Auto) Baso # (Auto) Sodium Potassium Chloride Carbon Dioxide Anion Gap BUN Creatinine Est GFR ( Amer) Est GFR (Non-Af Amer) POC Glucose (mg/dL) 219 H 135 H Random Glucose Calcium Total Bilirubin AST ALT Alkaline Phosphatase Troponin I Total Protein Albumin Globulin Albumin/Globulin Ratio Assessment & Plan - Assessment and Plan (Free Text) Plan: Severe Anemia, acute on chronic, symptomatic with substernal chest pain, dyspnea at rest r/o GI bleed. - Admission Hb 6. s/p 2u RBC. today RBC 9.4 - s/p endoscopy (11/05): esophageal mucosal change, barett's esophagus, non- bleeding erosive gastrophy, duodenitis - follow up on stool guaiac - protonix 40 daily - follow up with GI in 2 weeks for elective colonoscopy - Iron supplement Angina, r/o ACS - MELODY x 2 one month ago. Trops neg x 2 - ASA and plavix on hold for presume GI bleed. Will get CT A/P PO contrast to r/o lesions beyond scope area. - Per cardio, Should resume as soon as possible - continue metoprolol, amlodipine, lipitor, imdur - Per cardiology, transfer to [facility] for possible PCI today due to high risk of mortality DM - continue Levemir Hypothyroid - continue synthroid s/r/d/w Dr Oscar <Ezekiel Oscar S - Last Filed: 11/05/17 17:38> Results - Vital Signs Recent Vital Signs: Last Vital Signs Temp 97.8 F 11/05/17 12:11 Pulse 68 11/05/17 12:11 Resp 20 11/05/17 12:11 BP 143/67 11/05/17 12:11 Pulse Ox 96 11/05/17 08:51 - Labs Result Diagrams: 11/05/17 05:20 11/04/17 08:40 Labs: Laboratory Results - last 24 hr 11/04/17 11/05/17 11/05/17 21:30 01:51 05:20 WBC 6.6 RBC 3.56 Hgb 9.4 L Hct 29.4 L MCV 82.6 MCH 26.4 MCHC 32.0 RDW 15.6 H Plt Count 375 MPV 9.6 POC Glucose (mg/dL) 304 H 219 H 11/05/17 11/05/17 07:20 10:47 WBC RBC Hgb Hct MCV MCH MCHC RDW Plt Count MPV POC Glucose (mg/dL) 135 H 134 H Assessment & Plan - Assessment and Plan (Free Text) Plan: Pt seen and examined. I have reviewed the note of the medical assistant internal medicine and agree with it. I have discussed the assessment and plan with the resident. I have reviewed the patient's labs and medications. Pt with acute anemia and has been transfused. May have acute blood loss. On Protonix. Pt has a MELODY that was recently placed. BP is controlled with Amlodipine and Metoprolol. DM-2 controlled with Levemir. Spoke to Dr Chow. Pt has CT of abd that shows colon lesion. She will come back as outpt for colonoscopy by Dr Chow. F/U with PMD.
[2017-11-05] MEDS ORDERED: Potassium Chloride 20 mEq ER Tab PO SCH (08:00)
[2017-11-05] MEDS: Insulin Reg-LOW-Coverage SC SCH ×2 (08:29→11:34)
[2017-11-05] MEDS ORDERED: Sodium Chloride 0.9% 1,000 ML IV SCH (08:30)
[2017-11-05] MEDS ORDERED: Barium Sulfate Susp 2.1% w/v, 2.0% w/w 450 mL Bottle PO ONE (08:35)
[2017-11-05 08:54] VITALS: O2SAT 96
[2017-11-05] MEDS: Magnesium Oxide 400 mg Tab UD PO SCH (10:59)
[2017-11-05] MEDS: Levothyroxine 125 MCG TAB PO SCH (10:59)
[2017-11-05] MEDS: Metoprolol Succinate 50 mg XL Tab PO SCH (11:06)
[2017-11-05 12:11] VITALS: BP 143/67; PULSE 68; RESP 20; TEMP 97.8
--- NOTE | 2017-11-05 12:41 | CT ---
Date of service: 11/05/2017 PROCEDURE: CT Abdomen and Pelvis without intravenous contrast HISTORY: anemia COMPARISON: None. TECHNIQUE: Without contrast.. Contrast dose: Radiation dose: Total exam DLP = 880 mGy-cm. This CT exam was performed using one or more of the following dose reduction techniques: Automated exposure control, adjustment of the mA and/or kV according to patient size, and/or use of iterative reconstruction technique. FINDINGS: LOWER THORAX: Unremarkable. LIVER: Unremarkable. No gross lesion or ductal dilatation. GALLBLADDER AND BILE DUCTS: Unremarkable. PANCREAS: Unremarkable. No gross lesion or ductal dilatation. SPLEEN: Unremarkable. ADRENALS: Unremarkable. No mass. KIDNEYS AND URETERS: Unremarkable. No hydronephrosis. No solid mass. VASCULATURE: Unremarkable. No aortic aneurysm. BOWEL: There is an apple-core type annular lesion of the proximal transverse colon measuring 7.4 cm in length and 3.4 cm in diameter. APPENDIX: Unremarkable. Normal appendix. PERITONEUM: Unremarkable. No free fluid. No free air. LYMPH NODES: Unremarkable. No enlarged lymph nodes. BLADDER: Unremarkable. REPRODUCTIVE: Unremarkable. BONES: No acute fracture. OTHER FINDINGS: Dr. Chow was notified at 12:30 p.m. IMPRESSION: There is an apple-core type annular lesion of the proximal transverse colon measuring 7.4 cm in length and 3.4 cm in diameter. Findings consistent with a colonic malignancy.
== END 2017-11-05 15:04 | disposition home or self-care (01) | DRG 812 ==
LOC: ED 12:42 → ERH 14:24 → 2RNO 17:06
PROVIDERS: ADMIT Internal Medicine; ATTEND Internal Medicine
PROC: 30233N1 Transfusion of Nonautologous Red Blood Cells into Peripheral Vein, Percutaneous Approach (ICD-10-PCS; principal; 2017-11-03)
DX: D62 Acute posthemorrhagic anemia (principal); R07.89 Other chest pain; E87.5 Hyperkalemia; I11.0 Hypertensive heart disease with heart failure; I50.9 Heart failure, unspecified; I25.119 Atherosclerotic heart disease of native coronary artery with unspecified angina pectoris; E03.9 Hypothyroidism, unspecified; E78.5 Hyperlipidemia, unspecified; E11.40 Type 2 diabetes mellitus with diabetic neuropathy, unspecified; E11.51 Type 2 diabetes mellitus with diabetic peripheral angiopathy without gangrene; H35.30 Unspecified macular degeneration; M15.9 Polyosteoarthritis, unspecified; E78.00 Pure hypercholesterolemia, unspecified; K27.9 Peptic ulcer, site unspecified, unspecified as acute or chronic, without hemorrhage or perforation; Z96.641 Presence of right artificial hip joint; Z95.5 Presence of coronary angioplasty implant and graft; Z79.4 Long term (current) use of insulin; Z79.82 Long term (current) use of aspirin; Z79.02 Long term (current) use of antithrombotics/antiplatelets; Z87.891 Personal history of nicotine dependence

== ENCOUNTER 2017-11-11 07:55 | Day surgery (SDC) | payer MEDICARE ==
[2017-11-11 08:27] VITALS: TEMP 98
[2017-11-11] MEDS ORDERED: Sodium Chloride 0.9% 1,000 ML IV SCH (08:45)
[2017-11-11] MEDS ORDERED: Etomidate 20 mg/10ml Inj IV ONE ×2 (09:00→09:22)
[2017-11-11] MEDS ORDERED: Propofol 10 mg/ml Inj (20 ML) ONE (09:16)
[2017-11-11 10:32] LABS: BASO # 0.01 K/mm3 (0.0-2.0); BASO % 0.2 % (0.0-3.0); EOS # 0.1 (0.0-0.7); EOS % 1.4 % (1.5-5.0); GRAN # 3.41 (1.4-6.5); GRAN % 61.1 % (50.0-68.0); HEMOGLOBIN 8.8 g/dL (12.0-16.0); LYMPH # 1.7 (1.2-3.4); LYMPH % 30.3 % (22.0-35.0); MEAN CELL VOLUME 84.9 fl (80.0-105.0); MEAN CORPUSCULAR HEMOGLOBIN 27.1 pg (25.0-35.0); MEAN CORPUSCULAR HGB CONC 31.9 g/dl (31.0-37.0); MEAN PLATELET VOLUME 9.4 fl (7.0-11.0); MONO # 0.4 (0.1-0.6); RBC 3.25 10^6/uL (3.5-6.1); RED CELL DISTRIBUTION WIDTH 15.5 % (11.5-14.5); WHITE BLOOD COUNT 5.6 10^3/ul (4.5-11.0)
[2017-11-11 10:47] VITALS: RESP 20
[2017-11-11 13:14] VITALS: BP 157/64; PULSE 75; O2SAT 98
== END 2017-11-11 12:00 | disposition home or self-care (01) ==
LOC: ENDO 07:55
PROVIDERS: ATTEND Specialist
DX: C18.4 Malignant neoplasm of transverse colon (principal); D50.0 Iron deficiency anemia secondary to blood loss (chronic); K64.8 Other hemorrhoids; E11.51 Type 2 diabetes mellitus with diabetic peripheral angiopathy without gangrene; I25.10 Atherosclerotic heart disease of native coronary artery without angina pectoris; I10 Essential (primary) hypertension
CPT/HCPCS: 36415; 45380; 82378; 82948; 85025; 88305; J2001; J2704; J7030; J7040

== ENCOUNTER 2017-11-30 21:17 | Inpatient (IN) | payer MEDICARE ==
[2017-11-30 19:20] LABS: HEMOGLOBIN 7.7 g/dL (12.0-16.0); MEAN CELL VOLUME 84.9 fl (80.0-105.0); MEAN CORPUSCULAR HEMOGLOBIN 27.1 pg (25.0-35.0); MEAN PLATELET VOLUME 9.4 fl (7.0-11.0); RBC 2.84 10^6/uL (3.5-6.1); WHITE BLOOD COUNT 8.2 10^3/ul (4.5-11.0)
[2017-11-30 21:29] VITALS: BMI 29.6
[2017-11-30] MEDS ORDERED: Sodium Chloride 0.9% 500 ML IV STA (21:48)
[2017-11-30 22:21] LABS: BASO # 0.01 K/mm3 (0.0-2.0); BASO % 0.1 % (0.0-3.0); EOS # 0.1 (0.0-0.7); EOS % 0.6 % (1.5-5.0); GRAN # 5.33 (1.4-6.5); GRAN % 63.8 % (50.0-68.0); LYMPH # 2.4 (1.2-3.4); MEAN CELL VOLUME 84.1 fl (80.0-105.0); MEAN CORPUSCULAR HEMOGLOBIN 26.6 pg (25.0-35.0); MEAN CORPUSCULAR HGB CONC 31.6 g/dl (31.0-37.0); MEAN PLATELET VOLUME 9.4 fl (7.0-11.0); MONO # 0.5 (0.1-0.6); MONO % 6.5 % (1.0-6.0); RBC 2.52 10^6/uL (3.5-6.1); RED CELL DISTRIBUTION WIDTH 14.9 % (11.5-14.5); WHITE BLOOD COUNT 8.4 10^3/ul (4.5-11.0)
[2017-11-30 22:27] LABS: HEMOGLOBIN 6.7 g/dL (12.0-16.0)
[2017-11-30] MEDS ORDERED: Insulin Regular 1 UNITS/0.01 ML ML IVP STA (22:27)
[2017-11-30 22:32] LABS: INR 1.06; PARTIAL THROMBOPLASTIN TIME 28.7 Seconds (25.1-36.5); PROTHROMBIN TIME 12.1 SECONDS (9.4-12.5)
[2017-11-30 22:42] LABS: ALB/GLOB RATIO 0.9 (1.1-1.8); ALBUMIN 2.2 g/dL (3.0-4.8)
[2017-11-30 22:44] LABS: TROPONIN I 0.02 ng/mL
[2017-11-30] MEDS: Pantoprazole 40mg/100mL NS 40 MG/100 ML BAG IVPB SCH (23:01)
--- NOTE | 2017-11-30 23:25 | ED PDOC ---
Arrival/HPI - General Chief Complaint: Abnormal Labs Time Seen by Provider: 11/30/17 21:18 Historian: Patient - History of Present Illness Narrative History of Present Illness (Text): 11/30/17 21:30 77 year old female, whose past medical history includes diabetes, cardiac stents , peripheral vascular disease, vascular stents, presents to the emergency department with lower GI bleed. Patient states she had a hemicolectomy 4 days prior. Patient states she was on transitional care, when she began to notice bleeding. Patient also informs of associated left lower abdominal pain. Patient informs she currently takes aspirin and plavix. Patient was sent to emergency department for evaluation and admission. Patient denies any fever, chills, headache, dizziness, chest pain, shortness of breath, cough, back pain, neck pain, or any other complaint. PMD: Dr. Mcintyre Time/Duration: Prior to Arrival Symptom Onset: Gradual Past Medical History - Provider Review Nursing Documentation Reviewed: Yes - Infectious Disease Hx of Infectious Diseases: None - Cardiac Hx Cardiac Disorders: Yes Hx Hypertension: Yes - Pulmonary Hx Respiratory Disorders: No - Neurological Hx Neurological Disorder: No - HEENT Hx HEENT Disorder: Yes (macular degeneration) Hx Cataracts: Yes (BL cataract; Left sxg.) - Renal Hx Renal Disorder: No - Endocrine/Metabolic Hx Endocrine Disorders: Yes Hx Diabetes Mellitus Type 2: Yes Hx Hypothyroidism: Yes - Hematological/Oncological Hx Blood Disorders: Yes Hx Blood Transfusions: Yes - Integumentary Hx Dermatological Disorder: No Other/Comment: ecchymosis to upper extremeties - Musculoskeletal/Rheumatological Hx Musculoskeletal Disorders: Yes Hx Falls: Yes (past) - Gastrointestinal Hx Gastrointestinal Disorders: Yes (dx with colon ca/cholelap 11/26/17) - Genitourinary/Gynecological Hx Genitourinary Disorders: No - Psychiatric Hx Psychophysiologic Disorder: No Hx Substance Use: No - Surgical History Hx Cardiac Catheterization: Yes (2 stent september,) Hx Coronary Stent: Yes Other/Comment: Hip replacement (2016) - Anesthesia Hx Anesthesia Reactions: No Hx Malignant Hyperthermia: No - Suicidal Assessment Feels Threatened In Home Enviroment: No Family/Social History - Physician Review Nursing Documentation Reviewed: Yes Family/Social History: No Known Family HX Smoking Status: Former Smoker Hx Alcohol Use: Yes (SOCIAL) Hx Substance Use: No Allergies/Home Meds Allergies/Adverse Reactions: Allergies lisinopril Allergy (Severe, Verified 11/30/17 21:32) ANAPHYLAXIS THROAT CLOSING Home Medications: Home Meds Medication Instructions Recorded Confirmed Glipizide [Glucotrol] 5 mg PO BID 08/24/14 11/29/17 Aspirin [Ecotrin] 81 mg PO DAILY 01/05/17 11/29/17 Ferrous Sulfate [Feosol] 325 mg PO TID 11/18/17 11/29/17 Review of Systems - Physician Review All systems were reviewed & negative as marked: Yes - Review of Systems Constitutional: Normal. absent: Fevers, Night Sweats Eyes: Normal ENT: Normal Respiratory: Normal. absent: SOB, Cough Cardiovascular: Normal. absent: Chest Pain Gastrointestinal: Hematochezia Genitourinary Female: Normal Musculoskeletal: Normal. absent: Back Pain, Neck Pain Skin: Normal Neurological: Normal. absent: Headache, Dizziness Endocrine: Normal Hemo/Lymphatic: Normal Psychiatric: Normal Physical Exam Vital Signs Reviewed: Yes Vital Signs Temp Pulse Resp BP Pulse Ox 12/01/17 02:03 97.8 F 74 18 123/54 L 100 12/01/17 01:28 97.8 F 74 18 123/54 L 100 12/01/17 00:43 98.0 F 76 18 108/49 L 12/01/17 00:28 97.7 F 75 18 111/53 L 11/30/17 23:20 97.7 F 76 18 119/47 L 100 11/30/17 22:35 98.1 F 73 17 112/46 L 100 11/30/17 22:20 97.9 F 74 18 85/44 L 100 11/30/17 21:22 97.9 F 79 20 93/45 L 100 Temperature: Afebrile Blood Pressure: Normal Pulse: Regular Respiratory Rate: Normal Appearance: Positive for: Well-Appearing, Non-Toxic, Comfortable Pain Distress: None Mental Status: Positive for: Alert and Oriented X 3 Finger Stick Blood Glucose: 404 - Systems Exam Head: Present: Atraumatic, Normocephalic Pupils: Present: PERRL Extroacular Muscles: Present: EOMI Conjunctiva: Present: Normal Mouth: Present: Moist Mucous Membranes Neck: Present: Normal Range of Motion Respiratory/Chest: Present: Clear to Auscultation, Good Air Exchange. No: Respiratory Distress, Accessory Muscle Use Cardiovascular: Present: Regular Rate and Rhythm, Normal S1, S2. No: Murmurs Abdomen: Present: Tenderness (slight tenderness to LLQ). No: Distention, Peritoneal Signs Back: Present: Normal Inspection Upper Extremity: Present: Normal Inspection. No: Cyanosis, Edema Lower Extremity: Present: Normal Inspection. No: Edema Neurological: Present: GCS=15, CN II-XII Intact, Speech Normal Skin: Present: Dry, Pale. No: Rashes, Normal Color Psychiatric: Present: Alert, Oriented x 3, Normal Insight, Normal Concentration Medical Decision Making ED Course and Treatment: 11/30/17 21:35 Impression: 77 year old female presents to the emergency department with lower GI bleed. Plan: -- Labs -- EKG -- Chest X-ray -- Humulin -- Pentaprazole -- Zofran -- Reassess and disposition Prior Visits: Notes and results from previous visits were reviewed. case d/w relish maker pt to be admitted to icu Progress Notes: 12/01/17 03:31 - Critical Care Critical Care Minutes: 30 minutes (management of gi bleed) - Lab Interpretations Lab Results: 11/30/17 21:55 11/30/17 21:55 Lab Results 11/30/17 21:55: PT 12.1, INR 1.06, APTT 28.7 11/30/17 21:55: Sodium 132, Potassium 5.0, Chloride 108 H, Carbon Dioxide 17 L, Anion Gap 12, BUN 18, Creatinine 1.9 H, Est GFR ( Amer) 31, Est GFR (Non- Af Amer) 26, Random Glucose 371 H* D, Calcium 8.0 L, Total Bilirubin 0.1 L, AST 13 L, ALT 18, Alkaline Phosphatase 81, Troponin I 0.02, Total Protein 4.7 L, Albumin 2.2 L, Globulin 2.5, Albumin/Globulin Ratio 0.9 L 11/30/17 21:55: WBC 8.4, RBC 2.52 L, Hgb 6.7 L*, Hct 21.2 L, MCV 84.1, MCH 26.6 , MCHC 31.6, RDW 14.9 H, Plt Count 429, MPV 9.4, Gran % 63.8, Lymph % (Auto) 29.0, [place] % (Auto) 6.5 H, Eos % (Auto) 0.6 L, Baso % (Auto) 0.1, Gran # 5.33, Lymph # (Auto) 2.4, [place] # (Auto) 0.5, Eos # (Auto) 0.1, Baso # (Auto) 0.01 11/30/17 19:15: Blood Type B POSITIVE, Antibody Screen Negative, Crossmatch See Detail, BBK History Checked Patient has bt 11/30/17 19:15: WBC 8.2, RBC 2.84 L, Hgb 7.7 L D, Hct 24.1 L, MCV 84.9, MCH 27.1 , MCHC 32.0, RDW 15.0 H, Plt Count 366, MPV 9.4 - RAD Interpretation Radiology Orders: 11/30/17 21:37 CHEST PORTABLE [RAD] Stat - EKG Interpretation EKG Interpretation (Text): 12/01/17 00:19 nsr rate 74 no acute changes - Medication Orders Current Medication Orders: Pantoprazole Sodium (Protonix 40mg Ivpb) 40 mg in 100 mls @ 20 mls/hr IVPB .Q5H [facility] Last Admin: 12/01/17 02:51 Dose: 20 mls/hr eMAR Start Stop Document 12/01/17 02:51 B.P (Rec: 12/01/17 02:[address] [id number]) Intravenous Solution Start Date 12/01/17 Start Time 02:52 Sodium Chloride (Sodium Chloride 0.9%) 1,000 mls @ 100 mls/hr IV .Q10H [facility] Last Admin: 12/01/17 01:39 Dose: 100 mls/hr eMAR Start Stop Document 12/01/17 01:39 IT (Rec: 12/01/17 01:[address] [id number]) Intravenous Solution Start Date 12/01/17 Start Time 01:39 Insulin Detemir (Levemir) 15 unit SC HS [facility] Last Admin: 12/01/17 01:40 Dose: 15 u MAR Blood Glucose Document 12/01/17 01:40 IT (Rec: 12/01/17 01:[address] [id number]) Blood Glucose Finger Stick Blood Glucose (70-120) 282 Subcutaneous Administrations Document 12/01/17 01:40 IT (Rec: 12/01/17 01:40 IT [id number]) Injection Site MAR Injection Site Right Abdomen Charges for Administration # of Subcutaneous Administrations 1 Insulin Human Regular (Humulin R Low) 0 units SC Q6 LAZARA PRN Reason: Protocol Last Admin: 12/01/17 01:39 Dose: 3 u MAR Blood Glucose Document 12/01/17 01:39 IT (Rec: 12/01/17 01:40 IT [id number]) Blood Glucose Finger Stick Blood Glucose (70-120) 282 Subcutaneous Administrations Document 12/01/17 01:39 IT (Rec: 12/01/17 01:40 IT [id number]) Injection Site MAR Injection Site Left Abdomen Charges for Administration # of Subcutaneous Administrations 1 Ondansetron HCl (Zofran Inj) 4 mg IVP Q4H PRN PRN Reason: Nausea/Vomiting Discontinued Medications Sodium Chloride (Sodium Chloride 0.9%) 500 mls @ 999 mls/hr IV .Q31M STA Stop: 11/30/17 22:18 Last Admin: 11/30/17 22:12 Dose: 999 mls/hr eMAR Start Stop Document 11/30/17 22:12 IT (Rec: 11/30/17 22:12 IT [id number]) Intravenous Solution Start Date 11/30/17 Start Time 22:12 Insulin Human Regular (Humulin R) 8 units IVP STAT STA Stop: 11/30/17 22:28 Last Admin: 11/30/17 23:01 Dose: 8 u MAR Blood Glucose Document 11/30/17 23:01 IT (Rec: 11/30/17 23:01 IT [id number]) Blood Glucose Finger Stick Blood Glucose (70-120) 404 IVP Administration Document 11/30/17 23:01 IT (Rec: 11/30/17 23:01 IT [id number]) Charges for Administration # of IVP Administrations 1 Ondansetron HCl (Zofran Inj) 4 mg IVP STAT STA Stop: 11/30/17 23:10 Last Admin: 12/01/17 01:40 Dose: - Scribe Statement The provider has reviewed the documentation as recorded by the Zackibbarbara Stone Provider Scribe Attestation: All medical record entries made by the Scribe were at my direction and personally dictated by me. I have reviewed the chart and agree that the record accurately reflects my personal performance of the history, physical exam, medical decision making, and the department course for this patient. I have also personally directed, reviewed, and agree with the discharge instructions and disposition. Disposition/Present on Arrival - Present on Arrival Any Indicators Present on Arrival: No History of DVT/PE: No History of Uncontrolled Diabetes: No Urinary Catheter: No History of Decub. Ulcer: No History Surgical Site Infection Following: None - Disposition Have Diagnosis and Disposition been Completed?: Yes Diagnosis: Lower GI hemorrhage Disposition: HOSPITALIZED Disposition Time: 23:00 Condition: GUARDED
[2017-12-01] MEDS: Sodium Chloride 0.9% 1,000 ML IV SCH ×2 (01:39→12:38)
[2017-12-01] MEDS: Insulin Reg-LOW-Coverage SC SCH ×4 (01:39→18:05)
[2017-12-01] MEDS: Insulin Detemir 100 units/ml Vial (Levemir) SC SCH ×2 (01:40→22:47)
--- NOTE | 2017-12-01 02:17 | CP.PCM.CON ---
<Anny Asher - Last Filed: 12/01/17 03:46> History of Present Illness - History of Present Illness History of Present Illness: Anny Asher, PGY-1 Consult Note for ICU This is a 77 year old female with PMH of HTN, DM2, hypothyroidism, macular degeneration, CAD s/p MELODY stent in LAD on 09/29/17, colon cancer and PVD presents to the ER from the TCU due to large amounts of bright red blood in her stool. She received right partial colectomy last week due to colon adenocarcinoma. She is currently on ASA and plavix because of MELODY stent placement two months ago. Patient was doing well after hemicolectomy with only occasional mild abdominal pain until today. She admits to left sided abdominal pain and 8 bowel movements today with bright red blood and clots. She denies CP , SOB, headaches, fevers, chills, nausea, vomiting, urinary complaints, back pain, swelling, numbness/tingling, recent travel and recent sickness. 12 point ROS noted here, otherwise unremarkable. In the ED, EKG showed NSR at [address] changes. CXR read by me showed no acute disease. Patient was given 500ml NS bolus, 2 units PRBC and 1 unit platelets. Spoke with GI, Dr. Chow who recommended no further imaging at this time. She will be monitored in the ICU. PMD: Dr. Mcintyre PMH: as above FH: denies SH: denies smoking and drugs. Drinks alcohol occasionally Sx: right sided colectomy last week, right hip replacement, left cataract, MELODY in the LAD in 09/2017 All: lisinopril Past Patient History - Infectious Disease Hx of Infectious Diseases: None - Past Medical History & Family History Past Medical History?: Yes - Past Social History Smoking Status: Former Smoker - CARDIAC Hx Cardiac Disorders: Yes Hx Hypertension: Yes - PULMONARY Hx Respiratory Disorders: No - NEUROLOGICAL Hx Neurological Disorder: No - HEENT Hx HEENT Problems: Yes (macular degeneration) Hx Cataracts: Yes (BL cataract; Left sxg.) - RENAL Hx Chronic Kidney Disease: No - ENDOCRINE/METABOLIC Hx Endocrine Disorders: Yes Hx Diabetes Mellitus Type 2: Yes Hx Hypothyroidism: Yes - HEMATOLOGICAL/ONCOLOGICAL Hx Blood Disorders: Yes Hx Blood Transfusions: Yes - INTEGUMENTARY Hx Dermatological Problems: No Other/Comment: ecchymosis to upper extremeties - MUSCULOSKELETAL/RHEUMATOLOGICAL Hx Musculoskeletal Disorders: Yes Hx Falls: Yes (past) - GASTROINTESTINAL Hx Gastrointestinal Disorders: Yes (dx with colon ca/cholelap 11/26/17) - GENITOURINARY/GYNECOLOGICAL Hx Genitourinary Disorders: No - PSYCHIATRIC Hx Psychophysiologic Disorder: No Hx Substance Use: No - SURGICAL HISTORY Hx Cardiac Catheterization: Yes (2 stent september,) Hx Coronary Stent: Yes Other/Comment: Hip replacement (2016) - ANESTHESIA Hx Anesthesia Reactions: No Hx Malignant Hyperthermia: No Meds Allergies/Adverse Reactions: Allergies Allergy/AdvReac Type Severity Reaction Status Date / Time lisinopril Allergy Severe ANAPHYLAXIS Verified 11/30/17 21:32 - Medications Medications: Current Medications Pantoprazole Sodium (Protonix 40mg Ivpb) 40 mg in 100 mls @ 20 mls/hr IVPB .Q5H [facility] Last Admin: 11/30/17 23:01 Dose: 20 mls/hr Sodium Chloride (Sodium Chloride 0.9%) 1,000 mls @ 100 mls/hr IV .Q10H [facility] Last Admin: 12/01/17 01:39 Dose: 100 mls/hr Insulin Detemir (Levemir) 15 unit SC HS [facility] Last Admin: 12/01/17 01:40 Dose: 15 u Insulin Human Regular (Humulin R Low) 0 units SC Q6 [facility] PRN Reason: Protocol Last Admin: 12/01/17 01:39 Dose: 3 u Ondansetron HCl (Zofran Inj) 4 mg IVP Q4H PRN PRN Reason: Nausea/Vomiting Physical Exam - Constitutional Appears: No Acute Distress - Head Exam Head Exam: ATRAUMATIC, NORMAL INSPECTION - Eye Exam Eye Exam: EOMI Pupil Exam: PERRL - ENT Exam ENT Exam: Mucous Membranes Dry - Respiratory Exam Respiratory Exam: Clear to Auscultation Bilateral. absent: Respiratory Distress - Cardiovascular Exam Cardiovascular Exam: REGULAR RHYTHM, +S1, +S2 - GI/Abdominal Exam GI & Abdominal Exam: Normal Bowel Sounds. absent: Distended, Firm, Guarding Additional comments: LLQ tenderness appreciated - Extremities Exam Extremities exam: Positive for: normal inspection. Negative for: calf tenderness - Neurological Exam Neurological exam: Alert, Oriented x3 - Skin Skin Exam: Normal Color, Warm Results - Vital Signs Recent Vital Signs: Last Vital Signs Temp 97.8 F 12/01/17 01:28 Pulse 74 12/01/17 01:28 Resp 18 12/01/17 01:28 BP 124/53 L 12/01/17 01:28 Pulse Ox 100 11/30/17 23:20 - Labs Result Diagrams: 12/01/17 02:55 11/30/17 21:55 Assessment & Plan - Assessment and Plan (Free Text) Assessment: This is a 77 year old female with PMH of HTN, DM2, hypothyroidism, macular degeneration, CAD s/p MELODY stent in LAD on 09/29/17, colon cancer and PVD admitted to the ICU for management of possible lower GI bleed with recent hemicolectomy on ASA and plavix. Patient was in the TCU for rehab when she was noted to have large bloody bowel movements, with hgb dropping from 7.7 to 6.7. Surgery and GI on consult. Plan: Neuro: -maintain normothermia -AAO x3, moving extremities spontaneously past midline Cardio: -maintain MAP>65 -will monitor vitals including HR and BP closely -BP currently in the 120s/50s, HR 70s -cardiac cath 09/29/2017 showed severe LAD stenosis treated with MELODY, preserved LV systolic function Lungs: -SaO2 >90% -supplementary O2 PRN -CXR shows no active disease, hyperinflation (read by me) GI: -NPO diet -protonix drip -Colonoscopy on 11/11/17 showed an ulcerated completely obstructing large mass was found in the proximal transverse colon. Internal hemorrhoids. -Hemicolectomy on 11/29/17 for obstructing adenocarcinoma of the transverse colon -GI on consult, Dr. Chow, agreed with the recommendations, rec hold off imaging for now. -Surgery on consult, Dr. Vega Heme: -Hg on admission was 7.7. Decreased to 6.7 -Received 2 units PRBC, 1 unit platelets. Repeat CBC shows Hg of 8.3 -2 units PRBC on hold -holding ASA and plavix Renal: -maintain euvolemia -avoid nephrotoxic agents, hypochloremia -replace electrolytes as needed -BUN/Cr 18/1.9, will monitor -NS @ 100cc/hr Endo: -maintain euglycemia -insulin levemir 15 units HS, insulin regular q6 ID: -WBC is 8.4 today WNL, afebrile Patient seen and case discussed with attending, Dr. Osei Asher, PGY-1 <Lucho Franz - Last Filed: 12/01/17 06:23> Meds - Medications Medications: Current Medications Pantoprazole Sodium (Protonix 40mg Ivpb) 40 mg in 100 mls @ 20 mls/hr IVPB .Q5H [facility] Last Admin: 12/01/17 02:51 Dose: 20 mls/hr Sodium Chloride (Sodium Chloride 0.9%) 1,000 mls @ 100 mls/hr IV .Q10H [facility] Last Admin: 12/01/17 01:39 Dose: 100 mls/hr Insulin Detemir (Levemir) 15 unit SC HS [facility] Last Admin: 12/01/17 01:40 Dose: 15 u Insulin Human Regular (Humulin R Low) 0 units SC Q6 [facility] PRN Reason: Protocol Last Admin: 12/01/17 01:39 Dose: 3 u Ondansetron HCl (Zofran Inj) 4 mg IVP Q4H PRN PRN Reason: Nausea/Vomiting Results - Vital Signs Recent Vital Signs: Last Vital Signs Temp 98.1 F 12/01/17 02:41 Pulse 77 12/01/17 02:41 Resp 17 12/01/17 02:41 BP 127/59 L 12/01/17 02:41 Pulse Ox 100 12/01/17 02:03 - Labs Result Diagrams: 12/01/17 02:55 11/30/17 21:55 Labs: Laboratory Results - last 24 hr 12/01/17 02:55 WBC 7.0 RBC 2.97 L Hgb 8.3 L Hct 25.2 L MCV 84.8 MCH 27.9 MCHC 32.9 RDW 14.5 Plt Count 289 MPV 9.2 Gran % 74.1 H Lymph % (Auto) 20.5 L [place] % (Auto) 5.3 Eos % (Auto) 0.1 L Baso % (Auto) 0.0 Gran # 5.16 Lymph # (Auto) 1.4 [place] # (Auto) 0.4 Eos # (Auto) 0.0 Baso # (Auto) 0.00 Attending/Attestation - Attestation I have personally seen and examined this patient.: Yes I have fully participated in the care of the patient.: Yes I have reviewed all pertinent clinical information: Yes Notes (Text): Pt seen and examined independently. Acute blood loss anemia Lower GI Bleed DM HTN s/p right hemicolectomy now with bright red blood per rectum with some clots Hgb of 7.7 transfuse 2 PRBC, with 1 bag of Plt as pt was on DAPT with recent stent placement will keep 2 more PRBC on hold Surgery consulted from the ED Consult GI 12/01/17 06:16
[2017-12-01] MEDS: Pantoprazole 40mg/100mL NS 40 MG/100 ML BAG IVPB SCH ×2 (02:51→12:33)
[2017-12-01 03:12] LABS: EOS % 0.1 % (1.5-5.0); GRAN # 5.16 (1.4-6.5); GRAN % 74.1 % (50.0-68.0); HEMOGLOBIN 8.3 g/dL (12.0-16.0); LYMPH # 1.4 (1.2-3.4); LYMPH % 20.5 % (22.0-35.0); MEAN CELL VOLUME 84.8 fl (80.0-105.0); MEAN CORPUSCULAR HEMOGLOBIN 27.9 pg (25.0-35.0); MEAN CORPUSCULAR HGB CONC 32.9 g/dl (31.0-37.0); MEAN PLATELET VOLUME 9.2 fl (7.0-11.0); MONO # 0.4 (0.1-0.6); MONO % 5.3 % (1.0-6.0); RBC 2.97 10^6/uL (3.5-6.1); RED CELL DISTRIBUTION WIDTH 14.5 % (11.5-14.5)
--- NOTE | 2017-12-01 05:52 | CP.PCM.CON ---
History of Present Illness - History of Present Illness History of Present Illness: General Surgery Dr. Vega 77 y/o F w/ PMHx of colon Ca, DM2, HTN, CAD was discharged from TCU and sent to ED for LGIB. Pt was originally admitted on 11/24 for bleeding colonic mass in proximal trasnverse colon. Pt underwent laparoscopic, hand assisted, R hemicolectomy. Pt tolerated the procedure well w/ no complications. Pt was discharge from inpatient to TCU and restarted on her home ASA/Plvx POD#3. Overnight, pt developed hematochezia, became hypotensive, and c/o SOB. Pt sent to ED for pRBC transfusion and further workup. Pt denies F/C, CP, N/V, abd pain , or distention. PMHx: see above, hypothyroidism Meds: reviewed in chart ALL: lisinopril PSHx: R THR (12/2016), PCI (09/2017), R hemicolectomy SHx: denies tobacco, alcohol, or drug use FHx: non-contributory PMD: Dr. Mcintyre classroom coordinator: Dr. Salazar Review of Systems - Review of Systems All systems: reviewed and no additional remarkable complaints except (see HPI) Past Patient History - Infectious Disease Hx of Infectious Diseases: None - Past Medical History & Family History Past Medical History?: Yes - Past Social History Smoking Status: Former Smoker - CARDIAC Hx Cardiac Disorders: Yes Hx Hypertension: Yes - PULMONARY Hx Respiratory Disorders: No - NEUROLOGICAL Hx Neurological Disorder: No - HEENT Hx HEENT Problems: Yes (macular degeneration) Hx Cataracts: Yes (BL cataract; Left sxg.) - RENAL Hx Chronic Kidney Disease: No - ENDOCRINE/METABOLIC Hx Endocrine Disorders: Yes Hx Diabetes Mellitus Type 2: Yes Hx Hypothyroidism: Yes - HEMATOLOGICAL/ONCOLOGICAL Hx Blood Disorders: Yes Hx Blood Transfusions: Yes - INTEGUMENTARY Hx Dermatological Problems: No Other/Comment: ecchymosis to upper extremeties - MUSCULOSKELETAL/RHEUMATOLOGICAL Hx Musculoskeletal Disorders: Yes Hx Falls: Yes (past) - GASTROINTESTINAL Hx Gastrointestinal Disorders: Yes (dx with colon ca/cholelap 11/26/17) - GENITOURINARY/GYNECOLOGICAL Hx Genitourinary Disorders: No - PSYCHIATRIC Hx Psychophysiologic Disorder: No Hx Substance Use: No - SURGICAL HISTORY Hx Cardiac Catheterization: Yes (2 stent september,) Hx Coronary Stent: Yes Other/Comment: Hip replacement (2017) - ANESTHESIA Hx Anesthesia Reactions: No Hx Malignant Hyperthermia: No Meds Allergies/Adverse Reactions: Allergies Allergy/AdvReac Type Severity Reaction Status Date / Time lisinopril Allergy Severe ANAPHYLAXIS Verified 11/30/17 21:32 - Medications Medications: Current Medications Pantoprazole Sodium (Protonix 40mg Ivpb) 40 mg in 100 mls @ 20 mls/hr IVPB .Q5H [facility] Last Admin: 12/01/17 02:51 Dose: 20 mls/hr Sodium Chloride (Sodium Chloride 0.9%) 1,000 mls @ 100 mls/hr IV .Q10H [facility] Last Admin: 12/01/17 01:39 Dose: 100 mls/hr Insulin Detemir (Levemir) [address] [facility] Last Admin: 12/01/17 01:40 Dose: 15 u Insulin Human Regular (Humulin R Low) 0 units SC Q6 [facility] PRN Reason: Protocol Last Admin: 12/01/17 01:39 Dose: 3 u Ondansetron HCl (Zofran Inj) 4 mg IVP Q4H PRN PRN Reason: Nausea/Vomiting Physical Exam - Constitutional Appears: Non-toxic, No Acute Distress - Head Exam Head Exam: NORMAL INSPECTION - Eye Exam Eye Exam: Normal appearance - ENT Exam ENT Exam: Mucous Membranes Moist - Respiratory Exam Respiratory Exam: NORMAL BREATHING PATTERN. absent: Accessory Muscle Use, Respiratory Distress - Cardiovascular Exam Cardiovascular Exam: REGULAR RHYTHM. absent: Bradycardia, Tachycardia - GI/Abdominal Exam GI & Abdominal Exam: Soft. absent: Distended, Firm, Guarding, Rebound, Rigid, Tenderness Additional comments: incision c/d/i - Rectal Exam Rectal Exam: Bloody Stool - Extremities Exam Extremities exam: Positive for: normal inspection - Neurological Exam Neurological exam: Alert, Oriented x3 - Psychiatric Exam Psychiatric exam: Normal Affect, Normal Mood - Skin Skin Exam: Dry, Intact, Pallor, Warm Results - Vital Signs Recent Vital Signs: Last Vital Signs Temp 98.1 F 12/01/17 02:41 Pulse 77 12/01/17 02:41 Resp 17 12/01/17 02:41 BP 127/59 L 12/01/17 02:41 Pulse Ox 100 12/01/17 02:03 - Labs Result Diagrams: 12/01/17 02:55 11/30/17 21:55 Labs: Laboratory Results - last 24 hr 12/01/17 02:55 WBC 7.0 RBC 2.97 L Hgb 8.3 L Hct 25.2 L MCV 84.8 MCH 27.9 MCHC 32.9 RDW 14.5 Plt Count 289 MPV 9.2 Gran % 74.1 H Lymph % (Auto) 20.5 L [place] % (Auto) 5.3 Eos % (Auto) 0.1 L Baso % (Auto) 0.0 Gran # 5.16 Lymph # (Auto) 1.4 [place] # (Auto) 0.4 Eos # (Auto) 0.0 Baso # (Auto) 0.00 Assessment & Plan - Assessment and Plan (Free Text) Assessment: 77 y/o F POD#5 s/p lap, hand assisted, R hemicolectomy, now w/ acute LGIB - CLD - monitor bowel function - H/H Q4, once stable --> Q6 x2 - transfuse for Hgb < 7 or symptomatic - monitor vitals - hold all AC/anti-plts - f/u GI recs - GI/DVT PPx: Pep/SCDs - encourage OOb to chair/Amb/IS use Pt discussed w/ Dr. Gary Patel DO PGY3 - Date & Time Date: 11/30/17 Time: 22:00
[2017-12-01 07:19] LABS: BASO # 0.01 K/mm3 (0.0-2.0); BASO % 0.2 % (0.0-3.0); EOS % 0.5 % (1.5-5.0); GRAN # 3.53 (1.4-6.5); GRAN % 60.9 % (50.0-68.0); HEMOGLOBIN 7.5 g/dL (12.0-16.0); LYMPH # 1.7 (1.2-3.4); LYMPH % 29.9 % (22.0-35.0); MEAN CELL VOLUME 84.3 fl (80.0-105.0); MEAN CORPUSCULAR HEMOGLOBIN 27.4 pg (25.0-35.0); MEAN CORPUSCULAR HGB CONC 32.5 g/dl (31.0-37.0); MEAN PLATELET VOLUME 9.1 fl (7.0-11.0); MONO # 0.5 (0.1-0.6); MONO % 8.5 % (1.0-6.0); RBC 2.74 10^6/uL (3.5-6.1); RED CELL DISTRIBUTION WIDTH 14.7 % (11.5-14.5); WHITE BLOOD COUNT 5.8 10^3/ul (4.5-11.0)
[2017-12-01 07:48] LABS: ALB/GLOB RATIO 0.9 (1.1-1.8); CALCIUM 7.4 mg/dL (8.4-10.5)
--- NOTE | 2017-12-01 08:21 | PN ---
DATE: 12/01/2017 SUBJECTIVE: The patient is seen lying in bed in the CCU. While on Transitional Care Unit yesterday, she developed evidence of lower GI bleeding and was transferred to the emergency room and subsequently admitted to the CCU. Initial hemoglobin was 7.7, repeat was 6.7. She was transfused in the morning. Hemoglobin is 7.5. She denies any chest pain or dyspnea. Her aspirin and Plavix have been discontinuing. CURRENT MEDICATIONS: Include insulin, Protonix, IV fluids and Zofran as needed. OBJECTIVE: GENERAL: She is an elderly woman, appears comfortable at rest. VITAL SIGNS: Blood pressure is 126/60 with pulse 76 and sinus, respirations are 16. She is afebrile. HEENT: No JVD. CHEST: Few scattered rhonchi. HEART: PMI in normal position with systolic murmur in the left sternal border. ABDOMEN: Soft, distended. Mild diffuse tenderness is noted. Bowel sounds are present. EXTREMITIES: No edema. DIAGNOSTIC DATA: BUN and creatinine 18 and 1.9, glucose 206, potassium 4.6, white count 5.8, platelet count 315,000, hemoglobin and hematocrit of 7.5 and 23.1. IMPRESSION: 1. Lower gastrointestinal bleed, source to be identified. 2. Status post recent hemicolectomy. 3. Coronary artery disease with multivessel percutaneous coronary intervention and recent left anterior descending percutaneous coronary intervention in 09/2017 performed with drug-eluting stents. 4. Severe anemia. 5. Rest of problems as noted. RECOMMENDATIONS: CCU monitoring should continue. Transfusions to greater than 8 or 9 would be advisable. Obviously, aspirin and Plavix need to remain on hold. Given recurrent GI bleeding, obviously with recent drug-eluting stent of approximately 2 months ago, the risk of subacute stent thrombosis is significant. Monitoring for potential stent thrombosis and cardiac ischemia should continue. Resumption of aspirin and Plavix whenever felt safe from a GI standpoint would be reasonable. She appears stable and optimized from a cardiac standpoint to proceed with colonoscopy should that be necessary. We will continue to follow and make further recommendations as appropriate. Nilton Salazar MD
--- NOTE | 2017-12-01 09:41 | CARD ---
APPROVED REPORT Date of service: 11/30/2017 EKG Measurement Heart [id number] <Conclusion> Normal sinus rhythm Normal ECG
--- NOTE | 2017-12-01 10:20 | CON ---
DATE: 12/01/2017 CONSULTATION IN GASTROENTEROLOGY REQUESTING PHYSICIAN: Kameron Mcintyre MD. REASON FOR CONSULT: I have been asked to see this 77-year-old female with known coronary artery disease, status post coronary artery stent placement with a drug-eluting stent approximately 8 weeks ago, who was admitted to the hospital approximately 4 weeks ago with severe anemia where her hemoglobin at that time was 6 g. She was on aspirin and Plavix. An upper endoscopy performed during that visit revealed erosive gastritis and duodenitis. A CT scan of the abdomen and pelvis performed during that hospitalization reviewed a large apple core mass in the proximal transverse colon. The patient subsequently underwent a colonoscopy as an outpatient, which confirmed the presence of a bleeding obstructing colon mass in the proximal transverse colon near the hepatic flexure with biopsy showing invasive adenocarcinoma. The patient underwent a right hemicolectomy on 11/26/2017. She did well postoperatively. Last night, the patient developed rectal bleeding. She was started on aspirin and Plavix postoperatively due to the placement of drug-eluting stent for her LAD disease 8 weeks ago. She denies any abdominal pain, chest pain or shortness of breath. The patient was sent to the emergency room. Routine blood work at that time revealed her hemoglobin to be 7.7. Four hours later, repeat hemoglobin was 6.7. The patient received 2 units of packed red blood cells as well as a unit of platelets. The aspirin and Plavix have been held this morning. She has not had any further GI bleeding. Again, she denies any abdominal pain, chest pain or shortness of breath. PAST MEDICAL HISTORY: Notable for coronary artery disease, status post placement of a drug eluding stent 2 months ago in the LAD. She also has a history of diabetes mellitus, chronic kidney disease, hypothyroidism, hypertension, macular degeneration, anemia. SOCIAL HISTORY: She denies cigarette smoking, alcohol use. FAMILY HISTORY: Noncontributory. REVIEW OF SYSTEMS: Fourteen-point review of systems is positive for rectal bleeding. PHYSICAL EXAMINATION: GENERAL: Well-developed female, lying in bed in ICU, in no distress. VITAL SIGNS: Reveal temperature of 97.8, blood pressure 135/61, heart rate is 75. HEENT: Reveals sclerae to be white. Conjunctivae pale. NECK: Supple. CHEST: Reveals lungs to be clear. HEART: Reveals a regular rate and rhythm. ABDOMEN: Obese, soft, nontender. She has a fresh vertical incision, which is clean and appears to be healing nicely. There is no drainage from the incision. EXTREMITIES: Show no edema. LABORATORY DATA: Revealed white blood cell count 5.8, hemoglobin 7.5, platelet count of 315,000. Chemistries reveal BUN of 18, creatinine 1.9, blood sugar 206, albumin is 2. AST, ALT, alk phos were all normal. IMPRESSION: A 77-year-old female with coronary artery disease, status post placement of a drug-eluting stent about 2 months ago, who was diagnosed with colon cancer several weeks ago and underwent a right hemicolectomy 5 days ago on 11/26/2017 with acute onset of rectal bleeding. The patient was started on aspirin and Plavix for her drug eluding stent. I suspect that the bleeding is from the surgical anastomosis. The bleeding appears to have stopped. She remains anemic secondary to gastrointestinal bleeding. RECOMMENDATIONS: 1. We will transfuse two more units of packed red blood cells to a hematocrit of 30%. If the patient continues to bleed, I would transfuse another unit of platelets 2. If bleeding recurs, we will request a nuclear bleeding scan. I did not recommend a colonoscopy given recent surgical anastomosis after right hemicolectomy with the risk of causing an anastomotic leak. Her prognosis is guarded at this time. Amor Chow MD
--- NOTE | 2017-12-01 10:35 | RAD ---
Date of service: 11/30/2017 HISTORY: sob COMPARISON: 11/18/2017 FINDINGS: LUNGS: No active pulmonary disease. PLEURA: No significant pleural effusion identified, no pneumothorax apparent. CARDIOVASCULAR: Normal. OSSEOUS STRUCTURES: No significant abnormalities. VISUALIZED UPPER ABDOMEN: Normal. OTHER FINDINGS: None. IMPRESSION: No active disease.
[2017-12-01] MEDS ORDERED: HYDROmorphone 0.5 mg/0.5 ml ISec IVP PRN (11:47)
--- NOTE | 2017-12-01 12:12 | CP.PCM.PN ---
Subjective - Date & Time of Evaluation Date of Evaluation: 12/01/17 Time of Evaluation: 12:08 - Subjective Subjective: General Surgery - Dr. Vega Pt S&E. PT was transfused 2U PRBC and 1PLts, she has had no further BMs and no blood per rectum. She denies any abdominal pain other than mild pain from the incision. She was OOB yesterday. Currently NPO d/t lower gi bleed. No Fevers/ Chills, SOb/Chest pain. Objective - Vital Signs/Intake and Output Vital Signs (last 24 hours): Temp Pulse Resp BP Pulse Ox 97.5 F L 77 22 134/63 100 12/01/17 10:49 12/01/17 10:49 12/01/17 10:49 12/01/17 10:49 12/01/17 02:03 Intake and Output: 12/01/17 12/01/17 06:59 18:59 Intake Total 325 0 Balance 325 0 - Medications Medications: Current Medications Hydromorphone HCl (Dilaudid) 0.5 mg IVP Q3H PRN PRN Reason: Pain, moderate (4-7) Sodium Chloride (Sodium Chloride 0.9%) 1,000 mls @ 100 mls/hr IV .Q10H [facility] Last Admin: 12/01/17 01:39 Dose: 100 mls/hr Insulin Detemir (Levemir) 15 unit SC HS [facility] Last Admin: 12/01/17 01:40 Dose: 15 u Insulin Human Regular (Humulin R Low) 0 units SC Q6 [facility] PRN Reason: Protocol Last Admin: 12/01/17 08:21 Dose: 2 u Ondansetron HCl (Zofran Inj) 4 mg IVP Q4H PRN PRN Reason: Nausea/Vomiting Pantoprazole Sodium (Protonix Inj) 40 mg IVP DAILY [facility] - Labs Labs: 12/01/17 07:00 12/01/17 07:00 PT 12.1 SECONDS (9.4-12.5) 11/30/17 21:55 INR 1.06 11/30/17 21:55 APTT 28.7 Seconds (25.1-36.5) 11/30/17 21:55 - Constitutional Appears: No Acute Distress - Head Exam Head Exam: ATRAUMATIC, NORMAL INSPECTION, NORMOCEPHALIC - Eye Exam Eye Exam: Normal appearance - Respiratory Exam Respiratory Exam: NORMAL BREATHING PATTERN. absent: Respiratory Distress - Cardiovascular Exam Cardiovascular Exam: REGULAR RHYTHM - GI/Abdominal Exam GI & Abdominal Exam: Soft. absent: Distended, Firm, Guarding, Rigid, Tenderness , Rebound - Neurological Exam Neurological Exam: Alert, Oriented x3 - Psychiatric Exam Psychiatric exam: Normal Affect, Normal Mood - Skin Skin Exam: Dry, Intact Assessment and Plan - Assessment and Plan (Free Text) Assessment: 77F POD#6 s/p lap, hand assisted, R hemicolectomy w/ post-op lower gi bleed -Clear liquid diet and advance as tolerated -Monitor further BMs -Monitor H/H -Continue to hold anticoagulation/Anti-platelets -No need for protonix drip, can continue 40mg daily for GI px -Encourage OOB to chair/Ambulation/IS DW Dr. Vega
--- NOTE | 2017-12-01 12:28 | CP.CCUPN ---
<Millicent Westbrook - Last Filed: 12/01/17 15:26> CCU Subjective - Physician Review Subjective (Free Text): Patient seen and examined this am at bedside. No acute events overnight per nursing, no additional bloody BM, BP stable, afebrile, currently recieving 2 units prbc and 1 PLT 12/01/17 12:35 CCU Objective - Vital Signs / Intake & Output Vital Signs (Last 4 hours): Vital Signs Temp Pulse Resp BP 12/01/17 10:49 97.5 F L 77 22 134/63 12/01/17 10:04 97.8 F 80 18 135/62 12/01/17 09:48 97.8 F 75 18 135/61 Intake and Output (Last 8hrs): Intake & Output 11/30/17 12/01/17 12/01/17 22:59 06:59 14:59 Intake Total 325 0 Balance 325 0 Weight 178 lb Intake: Blood Product 325 0 Red Blood Cells Cpd As1 325 Lr Unit [id number] Red Blood Cells Cpd As1 0 Lr Unit [id number] - Physical Exam Head: Positive for: Atraumatic, Normocephalic Pupils: Positive for: PERRL Extroacular Muscles: Positive for: EOMI Conjunctiva: Positive for: Normal Mouth: Positive for: Moist Mucous Membranes Neck: Positive for: Normal Range of Motion Respiratory/Chest: Positive for: Clear to Auscultation, Good Air Exchange. Negative for: Respiratory Distress, Accessory Muscle Use Cardiovascular: Positive for: Regular Rate and Rhythm, Normal S1, S2. Negative for: Murmurs Abdomen: Positive for: Tenderness (slight tenderness to LLQ and appropriate incisional pain). Negative for: Distention, Peritoneal Signs Back: Positive for: Normal Inspection Upper Extremity: Positive for: Normal Inspection. Negative for: Cyanosis, Edema Lower Extremity: Positive for: Normal Inspection. Negative for: Edema Neurological: Positive for: GCS=15, CN II-XII Intact, Speech Normal Skin: Positive for: Dry, Pale. Negative for: Rashes, Normal Color Psychiatric: Positive for: Alert, Oriented x 3, Normal Insight, Normal Concentration - Medications Active Medications: Active Medications Generic Name Dose Route Start Last Admin Trade Name Freq PRN Reason Stop Dose Admin Hydromorphone HCl 0.5 mg 09/12/18 11:47 Dilaudid IVP Q3H PRN Pain, moderate (4-7) Insulin Detemir 15 unit 11/30/17 23:30 12/01/17 01:40 Levemir SC 15 u HS LAZARA Administration Insulin Human Regular 0 units 12/01/17 00:00 12/01/17 08:21 Humulin R Low SC 2 u Q6 LAZARA Administration Protocol Ondansetron HCl 4 mg 11/30/17 23:19 Zofran Inj IVP Q4H PRN Nausea/Vomiting Pantoprazole Sodium 40 mg 12/02/17 10:00 Protonix Inj IVP DAILY LAZARA - Patient Studies Lab Studies: Lab Studies 12/01/17 12/01/17 12/01/17 Range/Units 07:00 07:00 02:55 WBC 5.8 7.0 (4.5-11.0) 10^3/ul RBC 2.74 L 2.97 L (3.5-6.1) 10^6/uL Hgb 7.5 L 8.3 L (12.0-16.0) g/dL Hct 23.1 L 25.2 L (36.0-48.0) % MCV 84.3 84.8 (80.0-105.0) fl MCH 27.4 27.9 (25.0-35.0) pg MCHC 32.5 32.9 (31.0-37.0) g/dl RDW 14.7 H 14.5 (11.5-14.5) % Plt Count 315 289 (120.0-450.0) 10^3/uL MPV 9.1 9.2 (7.0-11.0) fl Gran % 60.9 74.1 H (50.0-68.0) % Lymph % (Auto) 29.9 20.5 L (22.0-35.0) % [place] % (Auto) 8.5 H 5.3 (1.0-6.0) % Eos % (Auto) 0.5 L 0.1 L (1.5-5.0) % Baso % (Auto) 0.2 0.0 (0.0-3.0) % Gran # 3.53 5.16 (1.4-6.5) Lymph # (Auto) 1.7 1.4 (1.2-3.4) [place] # (Auto) 0.5 0.4 (0.1-0.6) Eos # (Auto) 0.0 0.0 (0.0-0.7) Baso # (Auto) 0.01 0.00 (0.0-2.0) K/mm3 Sodium 135 (132-148) mmol/L Potassium 4.6 (3.6-5.0) mmol/L Chloride 112 H (98-107) mmol/L Carbon Dioxide 19 L (21-33) mmol/L Anion Gap 8 L (10-20) BUN 18 (7-21) mg/dL Creatinine 1.9 H (0.7-1.2) mg/dl Est GFR ( Amer) 31 Est GFR (Non-Af Amer) 26 Random Glucose 206 H (70-110) mg/dL Calcium 7.4 L (8.4-10.5) mg/dL Phosphorus 4.6 H (2.5-4.5) mg/dL Magnesium 1.8 (1.7-2.2) mg/dL Total Bilirubin 0.2 (0.2-1.3) mg/dL AST 19 (14-36) U/L ALT 18 (7-56) U/L Alkaline Phosphatase 65 (38-126) U/L Total Protein 4.3 L (5.8-8.3) g/dL Albumin 2.0 L (3.0-4.8) g/dL Globulin 2.3 gm/dL Albumin/Globulin Ratio 0.9 L (1.1-1.8) Laboratory Results - last 24 hr 12/01/17 12/01/17 12/01/17 02:55 07:00 07:00 WBC 7.0 5.8 RBC 2.97 L 2.74 L Hgb 8.3 L 7.5 L Hct 25.2 L 23.1 L MCV 84.8 84.3 MCH 27.9 27.4 MCHC 32.9 32.5 RDW 14.5 14.7 H Plt Count 289 315 MPV 9.2 9.1 Gran % 74.1 H 60.9 Lymph % (Auto) 20.5 L 29.9 [place] % (Auto) 5.3 8.5 H Eos % (Auto) 0.1 L 0.5 L Baso % (Auto) 0.0 0.2 Gran # 5.16 3.53 Lymph # (Auto) 1.4 1.7 [place] # (Auto) 0.4 0.5 Eos # (Auto) 0.0 0.0 Baso # (Auto) 0.00 0.01 Sodium 135 Potassium 4.6 Chloride 112 H Carbon Dioxide 19 L Anion Gap 8 L BUN 18 Creatinine 1.9 H Est GFR ( Amer) 31 Est GFR (Non-Af Amer) 26 Random Glucose 206 H Calcium 7.4 L Phosphorus 4.6 H Magnesium 1.8 Total Bilirubin 0.2 AST 19 ALT 18 Alkaline Phosphatase 65 Total Protein 4.3 L Albumin 2.0 L Globulin 2.3 Albumin/Globulin Ratio 0.9 L Fingerstick Blood Sugar Results: 226 Review of Systems - Review of Systems All systems: reviewed and no additional remarkable complaints except Review of Systems: as per HPI Critical Care Progress Note - Nutrition Nutrition: Nutrition Category Date Time Status Liquid Diet [DIET] Diets 12/01/17 Lunch Ordered Assessment/Plan - Assessment and Plan (Free Text) Assessment: This is a 77 year old female with PMH of HTN, DM2, hypothyroidism, macular degeneration, CAD s/p MELODY stent in LAD on 09/29/17, colon cancer and PVD admitted to the ICU for management of possible lower GI bleed s/p hemicolectomy 11/25 restarted on ASA and plavix POD 3. Patient was in the TCU for rehab when she was noted to have large bloody bowel movements, with hgb dropping from 7.7 to 6.7. Surgery and GI on consult. Plan: Neuro: -maintain normothermia -AAO x3, moving extremities spontaneously past midline Cardio: -maintain MAP>65 -will monitor vitals including HR and BP closely -BP currently in the 120s/50s, HR 70s -cardiac cath 09/29/2017 showed severe LAD stenosis treated with MELODY, preserved LV systolic function Lungs: -SaO2 >90% -supplementary O2 PRN -CXR shows no active disease, hyperinflation GI: -NPO diet -protonix bid -Colonoscopy on 11/11/17 showed an ulcerated completely obstructing large mass was found in the proximal transverse colon. Internal hemorrhoids. -Hemicolectomy on 11/29/17 for obstructing adenocarcinoma of the transverse colon -GI on consult, Dr. Chow, agreed with the recommendations, rec hold off imaging for now. -Surgery on consult, Dr. Vega Heme: -Hg on admission was 7.7. now 7.5 - 2 u PRBC and 1 PLT given, receiving additional unit PRBC now - 6 units PRBC on hold -holding ASA and plavix Renal: -maintain euvolemia -avoid nephrotoxic agents, hypochloremia -replace electrolytes as needed -BUN/Cr 18/1.9, will monitor -NS @ 100cc/hr Endo: -maintain euglycemia -insulin levemir 15 units HS, insulin regular q6 ID: -WBC is 5.8 today WNL, afebrile Patient seen and case discussed with attending, Dr. Nydia Westbrook, PGY-1 - Date & Time Date: 12/01/17 <Mesha Stafford - Last Filed: 12/01/17 15:46> CCU Objective - Vital Signs / Intake & Output Vital Signs (Last 4 hours): Vital Signs Temp Pulse Resp BP 12/01/17 14:57 98.4 F 99 H 18 149/76 12/01/17 14:41 98.5 F 100 H 18 159/57 H 12/01/17 14:36 98.5 F 91 H 18 159/64 H 12/01/17 12:46 98.5 F 71 18 134/62 Intake and Output (Last 8hrs): Intake & Output 12/01/17 12/01/17 12/01/17 06:59 14:59 22:59 Intake Total 325 419 Balance 325 419 Weight 178 lb Intake: Blood Product 325 319 Red Blood Cells Cpd As1 0 Lr Unit [id number] Red Blood Cells Cpd As1 325 Lr Unit [id number] Red Blood Cells Cpd As1 319 Lr Unit [id number] Other 100 Red Blood Cells Cpd As1 100 Lr Unit [id number] - Medications Active Medications: Active Medications Generic Name Dose Route Start Last Admin Trade Name Freq PRN Reason Stop Dose Admin Hydromorphone HCl 0.5 mg 12/01/17 11:47 Dilaudid IVP Q3H PRN Pain, moderate (4-7) Sodium Chloride 1,000 mls @ 100 mls/hr 12/01/17 14:15 Sodium Chloride 0.9% IV .Q10H LAZARA Insulin Detemir 15 unit 11/30/17 23:30 12/01/17 01:40 Levemir SC 15 u HS LAZARA Administration Insulin Human Regular 0 units 12/01/17 00:00 12/01/17 12:36 Humulin R Low SC 1 u Q6 LAZARA Administration Protocol Ondansetron HCl 4 mg 11/30/17 23:19 Zofran Inj IVP Q4H PRN Nausea/Vomiting Pantoprazole Sodium 40 mg 12/02/17 10:00 Protonix Inj IVP DAILY LAZARA - Patient Studies Lab Studies: Lab Studies 12/01/17 12/01/17 12/01/17 Range/Units 07:00 07:00 02:55 WBC 5.8 7.0 (4.5-11.0) 10^3/ul RBC 2.74 L 2.97 L (3.5-6.1) 10^6/uL Hgb 7.5 L 8.3 L (12.0-16.0) g/dL Hct 23.1 L 25.2 L (36.0-48.0) % MCV 84.3 84.8 (80.0-105.0) fl MCH 27.4 27.9 (25.0-35.0) pg MCHC 32.5 32.9 (31.0-37.0) g/dl RDW 14.7 H 14.5 (11.5-14.5) % Plt Count 315 289 (120.0-450.0) 10^3/uL MPV 9.1 9.2 (7.0-11.0) fl Gran % 60.9 74.1 H (50.0-68.0) % Lymph % (Auto) 29.9 20.5 L (22.0-35.0) % [place] % (Auto) 8.5 H 5.3 (1.0-6.0) % Eos % (Auto) 0.5 L 0.1 L (1.5-5.0) % Baso % (Auto) 0.2 0.0 (0.0-3.0) % Gran # 3.53 5.16 (1.4-6.5) Lymph # (Auto) 1.7 1.4 (1.2-3.4) [place] # (Auto) 0.5 0.4 (0.1-0.6) Eos # (Auto) 0.0 0.0 (0.0-0.7) Baso # (Auto) 0.01 0.00 (0.0-2.0) K/mm3 Sodium 135 (132-148) mmol/L Potassium 4.6 (3.6-5.0) mmol/L Chloride 112 H (98-107) mmol/L Carbon Dioxide 19 L (21-33) mmol/L Anion Gap 8 L (10-20) BUN 18 (7-21) mg/dL Creatinine 1.9 H (0.7-1.2) mg/dl Est GFR ( Amer) 31 Est GFR (Non-Af Amer) 26 Random Glucose 206 H (70-110) mg/dL Calcium 7.4 L (8.4-10.5) mg/dL Phosphorus 4.6 H (2.5-4.5) mg/dL Magnesium 1.8 (1.7-2.2) mg/dL Total Bilirubin 0.2 (0.2-1.3) mg/dL AST 19 (14-36) U/L ALT 18 (7-56) U/L Alkaline Phosphatase 65 (38-126) U/L Total Protein 4.3 L (5.8-8.3) g/dL Albumin 2.0 L (3.0-4.8) g/dL Globulin 2.3 gm/dL Albumin/Globulin Ratio 0.9 L (1.1-1.8) Laboratory Results - last 24 hr 12/01/17 12/01/17 12/01/17 02:55 07:00 07:00 WBC 7.0 5.8 RBC 2.97 L 2.74 L Hgb 8.3 L 7.5 L Hct 25.2 L 23.1 L MCV 84.8 84.3 MCH 27.9 27.4 MCHC 32.9 32.5 RDW 14.5 14.7 H Plt Count 289 315 MPV 9.2 9.1 Gran % 74.1 H 60.9 Lymph % (Auto) 20.5 L 29.9 [place] % (Auto) 5.3 8.5 H Eos % (Auto) 0.1 L 0.5 L Baso % (Auto) 0.0 0.2 Gran # 5.16 3.53 Lymph # (Auto) 1.4 1.7 [place] # (Auto) 0.4 0.5 Eos # (Auto) 0.0 0.0 Baso # (Auto) 0.00 0.01 Sodium 135 Potassium 4.6 Chloride 112 H Carbon Dioxide 19 L Anion Gap 8 L BUN 18 Creatinine 1.9 H Est GFR ( Amer) 31 Est GFR (Non-Af Amer) 26 Random Glucose 206 H Calcium 7.4 L Phosphorus 4.6 H Magnesium 1.8 Total Bilirubin 0.2 AST 19 ALT 18 Alkaline Phosphatase 65 Total Protein 4.3 L Albumin 2.0 L Globulin 2.3 Albumin/Globulin Ratio 0.9 L Critical Care Progress Note - Nutrition Nutrition: Nutrition Category Date Time Status Liquid Diet [DIET] Diets 12/01/17 Lunch Ordered Addendum Addendum: 12/01/17 15:46 ICU Attending Addendum: Patient seen and examined. Case reviewed on round with housestaff. Agree with resident note above with the following additions/exceptions: 77F HTN, DM2, hypothyroidism, CAD s/p MELODY stent in LAD on 09/29/17, colon cancer s/p hemicolectomy on 11/26 here with GI bleeding possible from surgical site. After her initial surgery she was d/c to TCU and restarted on dual antiplat given her recent MELODY stent. Last night developed hemtochezia and low BP. Transferred to ICU. Receiving blood now. F/u CBC post transfuion. Keep HB > 8 F/u surg recs regarding GI bleeding hold antiplat today but need to resume as soon as it is safe give her risk of instent thrombosis insulin control for DM monitor in ICU for now Rest of care as noted above. Mesha Stafford MD Patient Safety Coordinator
--- NOTE | 2017-12-01 14:13 | HP ---
HISTORY OF PRESENT ILLNESS: A 77-year-old white female who was found to be having recurrent diarrhea and bloody diarrhea. Postoperatively, she stayed well in TCU. Patient was transferred to the ER for evaluation, was transfused, and then transferred to ICU. Patient is seen currently in the ICU, bed 5. PHYSICAL EXAMINATION: GENERAL: Patient is awake and alert. Patient has not had any further diarrhea overnight. She is seen sleeping in bed, but easily arousable. VITAL SIGNS: She is afebrile. Her blood pressure is 127/59. CHEST: Clear to auscultation. HEART: Regular sinus rhythm. ABDOMEN: Mildly tender on soft palpation. EXTREMITIES: Without cyanosis, clubbing, or edema. LABORATORY DATA: Her hemoglobin was as low as 6.4. She is up to 7.5 after 2 transfusions. Patient's BUN and creatinine did bump to 19 and 1.9. Rest of data are unremarkable. IMPRESSION AND PLAN: Bloody diarrhea, postop for colon cancer, rule out anastomotic bleeding, rule out Clostridium difficile, rule out hemorrhagic gastritis, rule out acute colitis. Kameron Mcintyre MD
[2017-12-01] MEDS ORDERED: Sodium Chloride 0.9% 1,000 ML IV SCH (14:15)
[2017-12-01 19:54] LABS: HEMOGLOBIN 9.8 g/dL (12.0-16.0); MEAN CELL VOLUME 84.4 fl (80.0-105.0); MEAN CORPUSCULAR HEMOGLOBIN 27.8 pg (25.0-35.0); MEAN CORPUSCULAR HGB CONC 32.9 g/dl (31.0-37.0); MEAN PLATELET VOLUME 9.4 fl (7.0-11.0); RBC 3.53 10^6/uL (3.5-6.1); RED CELL DISTRIBUTION WIDTH 14.3 % (11.5-14.5); WHITE BLOOD COUNT 6.9 10^3/ul (4.5-11.0)
--- NOTE | 2017-12-02 00:44 | CP.PCM.CON ---
History of Present Illness - History of Present Illness History of Present Illness: Ms. Law is a 77 year old female with recent right hemicolectomy for colon cancer. She also underwent omental met resection. She was on transitional care unit, developed rectal bleed. Hb declined to 6.7 gm /dl. Transfused 2 units of PRBCs. Hb this am is 7.5 gm/dl. She recently had drug eluting stents placed. She was started on aspirin, plavix post op. denies chest pain. Review of Systems - Constitutional Constitutional: As Per HPI - EENT Eyes: absent: As Per HPI, Blind Spots, Blurred Vision, Change in Vision, Decreased Night Vision, Diplopia, Discharge, Dry Eye, Exophthalmos, Floaters, Irritation, Itchy Eyes, Loss of Peripheral Vision, Pain, Photophobia, Requires Corrective Lenses, Sees Flashes, Spots in Vision, Tunnel Vision, Other Visual Disturbances, Loss of Vision, Other Ears: absent: As Per HPI, Decreased Hearing, Ear Discharge, Ear Pain, Tinnitus, Abnormal Hearing, Disequilibrium, Dizziness, Other - Breasts Breasts: absent: As Per HPI, Change in Shape, Mass, Pain, Nipple Discharge, Nipple Inversion, Skin Changes, Swelling, Other - Cardiovascular Cardiovascular: absent: As Per HPI, Acrocyanosis, Chest Pain, Chest Pain at Rest , Chest Pain with Activity, Claudication, Diaphoresis, Dyspnea, Dyspnea on Exertion, Edema, Irregular Heart Rhythm, Pain Radiating to Arm/Neck/Jaw, Leg Edema, Leg Ulcers, Lightheadedness, Orthopnea, Palpitations, Paroxysmal Nocturnal Dyspnea, Pedal Edema, Radiating Pain, Rapid Heart Rate, Slow Heart Rate, Syncope, Other - Respiratory Respiratory: absent: As Per HPI, Cough, Dyspnea, Hemoptysis, Dyspnea on Exertion , Wheezing, Snoring, Stridor, Pain on Inspiration, Chest Congestion, Excessive Mucous Production, Change in Mucous Color, Pain with Coughing, Other - Genitourinary Genitourinary: absent: As Per HPI, Change in Urinary Stream, Difficulty Urinating, Dysuria, Flank Pain, Hematuria, Pyuria, Nocturia, Urinary Incontinence, Urinary Frequency, Urinary Hesitance, Urinary Urgency, Voiding Freq/Small Amts, Freq UTI, Hx Renal/Bladder Calculi, Hx /Renal Surgery, Bladder Distension, Other - Musculoskeletal Musculoskeletal: absent: As Per HPI, Abnormal Gait, Arthralgias, Atrophy, Back Pain, Deformity, Joint Swelling, Limited Range of Motion, Loss of Height, Muscle Cramps, Muscle Weakness, Myalgias, Neck Pain, Numbness, Radiating Pain into Limb, Stiffness, Tingling, Other - Neurological Neurological: absent: As Per HPI, Abnormal Gait, Abnormal Hearing, Abnormal Movements, Abnormal Speech, Behavioral Changes, Burning Sensations, Confusion, Convulsions, Disequilibrium, Dizziness, Numbness, Focal Weakness, Frequent Falls , Headaches, Lack of Coordination, Loss of Vision, Memory Loss, Paresthesias, Radicular Pain, Restless Legs, Sensory Deficit, Syncope, Tingling, Tremor, Vertigo, Weakness, Other Visual Disturbances, Other - Psychiatric Psychiatric: absent: As Per HPI, Abnormal Sleep Pattern, Anhedonia, Anxiety, Auditory Hallucinations, Behavioral Changes, Change in Appetite, Change in Libido, Confusion, Depression, Difficulty Concentrating, Hallucinations, Homicidal Ideation, Hopelessness, Irritability, Memory Loss, Mood Swings, Panic Attacks, Paranoia, Suicidal Ideation, Visual Hallucinations, Tactile Hallucinations, Other - Endocrine Endocrine: absent: As Per HPI, Change in Body Appearance, Change in Libido, Cold Intolorance, Deepening of Voice, Excessive Sweating, Fatigue, Flushing, Heat Intolorance, Increase in Ring/Shoe/Hat Size, Palpitations, Polydipsia, Polyphagia, Polyuria, Other - Hematologic/Lymphatic Hematologic: As Per HPI Past Patient History - Infectious Disease Hx of Infectious Diseases: None - Past Medical History & Family History Past Medical History?: Yes - Past Social History Smoking Status: Former Smoker - CARDIAC Hx Cardiac Disorders: Yes Hx Hypertension: Yes - PULMONARY Hx Respiratory Disorders: No - NEUROLOGICAL Hx Neurological Disorder: No - HEENT Hx HEENT Problems: Yes (macular degeneration) Hx Cataracts: Yes (BL cataract; Left sxg.) - RENAL Hx Chronic Kidney Disease: No - ENDOCRINE/METABOLIC Hx Endocrine Disorders: Yes Hx Diabetes Mellitus Type 2: Yes Hx Hypothyroidism: Yes - HEMATOLOGICAL/ONCOLOGICAL Hx Blood Disorders: Yes Hx Blood Transfusions: Yes - INTEGUMENTARY Hx Dermatological Problems: No Other/Comment: ecchymosis to upper extremeties - MUSCULOSKELETAL/RHEUMATOLOGICAL Hx Musculoskeletal Disorders: Yes Hx Falls: Yes (past) - GASTROINTESTINAL Hx Gastrointestinal Disorders: Yes (dx with colon ca/cholelap 11/26/17) - GENITOURINARY/GYNECOLOGICAL Hx Genitourinary Disorders: No - PSYCHIATRIC Hx Psychophysiologic Disorder: No Hx Substance Use: No - SURGICAL HISTORY Hx Cardiac Catheterization: Yes (2 stent september,) Hx Coronary Stent: Yes Other/Comment: Hip replacement (2016) - ANESTHESIA Hx Anesthesia Reactions: No Hx Malignant Hyperthermia: No Meds Allergies/Adverse Reactions: Allergies Allergy/AdvReac Type Severity Reaction Status Date / Time lisinopril Allergy Severe ANAPHYLAXIS Verified 11/30/17 21:32 - Medications Medications: Current Medications Gabapentin (Neurontin) 600 mg PO HS LAZARA PRN Reason: Protocol Last Admin: 12/01/17 23:07 Dose: 600 mg Hydromorphone HCl (Dilaudid) 0.5 mg IVP Q3H PRN PRN Reason: Pain, moderate (4-7) Last Admin: 12/01/17 22:46 Dose: 0.5 mg Sodium Chloride (Sodium Chloride 0.9%) 1,000 mls @ 100 mls/hr IV .Q10H [facility] Insulin Detemir (Levemir) 15 unit SC HS [facility] Last Admin: 12/01/17 22:47 Dose: 15 u Insulin Human Regular (Humulin R Low) 0 units SC Q6 LAZARA PRN Reason: Protocol Last Admin: 12/01/17 18:05 Dose: 2 u Ondansetron HCl (Zofran Inj) 4 mg IVP Q4H PRN PRN Reason: Nausea/Vomiting Pantoprazole Sodium (Protonix Inj) 40 mg IVP DAILY [facility] Physical Exam - Constitutional Appears: Chronically Ill - Head Exam Head Exam: ATRAUMATIC, NORMAL INSPECTION, NORMOCEPHALIC - Eye Exam Eye Exam: Normal appearance - ENT Exam ENT Exam: Mucous Membranes Moist - Neck Exam Neck exam: Positive for: Normal Inspection - Respiratory Exam Respiratory Exam: Clear to Auscultation Bilateral, NORMAL BREATHING PATTERN - Cardiovascular Exam Cardiovascular Exam: REGULAR RHYTHM, +S1, +S2 - GI/Abdominal Exam GI & Abdominal Exam: Normal Bowel Sounds, Soft - Extremities Exam Extremities exam: Positive for: normal inspection - Back Exam Back exam: NORMAL INSPECTION - Neurological Exam Neurological exam: Alert, CN II-XII Intact, Oriented x3 - Skin Skin Exam: Pallor Results - Vital Signs Recent Vital Signs: Last Vital Signs Temp 98.4 F 12/01/17 18:00 Pulse 103 H 12/01/17 18:00 Resp 18 12/01/17 18:00 BP 164/72 H 12/01/17 18:00 Pulse Ox 100 12/01/17 02:03 - Labs Result Diagrams: 12/01/17 19:45 12/01/17 07:00 Labs: Laboratory Results - last 24 hr 12/01/17 12/01/17 12/01/17 02:55 07:00 07:00 WBC 7.0 5.8 RBC 2.97 L 2.74 L Hgb 8.3 L 7.5 L Hct 25.2 L 23.1 L MCV 84.8 84.3 MCH 27.9 27.4 MCHC 32.9 32.5 RDW 14.5 14.7 H Plt Count 289 315 MPV 9.2 9.1 Gran % 74.1 H 60.9 Lymph % (Auto) 20.5 L 29.9 [place] % (Auto) 5.3 8.5 H Eos % (Auto) 0.1 L 0.5 L Baso % (Auto) 0.0 0.2 Gran # 5.16 3.53 Lymph # (Auto) 1.4 1.7 [place] # (Auto) 0.4 0.5 Eos # (Auto) 0.0 0.0 Baso # (Auto) 0.00 0.01 Sodium 135 Potassium 4.6 Chloride 112 H Carbon Dioxide 19 L Anion Gap 8 L BUN 18 Creatinine 1.9 H Est GFR ( Amer) 31 Est GFR (Non-Af Amer) 26 POC Glucose (mg/dL) Random Glucose 206 H Calcium 7.4 L Phosphorus 4.6 H Magnesium 1.8 Total Bilirubin 0.2 AST 19 ALT 18 Alkaline Phosphatase 65 Total Protein 4.3 L Albumin 2.0 L Globulin 2.3 Albumin/Globulin Ratio 0.9 L 12/01/17 12/01/17 12/01/17 07:40 11:43 17:40 WBC RBC Hgb Hct MCV MCH MCHC RDW Plt Count MPV Gran % Lymph % (Auto) [place] % (Auto) Eos % (Auto) Baso % (Auto) Gran # Lymph # (Auto) [place] # (Auto) Eos # (Auto) Baso # (Auto) Sodium Potassium Chloride Carbon Dioxide Anion Gap BUN Creatinine Est GFR ( Amer) Est GFR (Non-Af Amer) POC Glucose (mg/dL) 206 H 159 H 207 H Random Glucose Calcium Phosphorus Magnesium Total Bilirubin AST ALT Alkaline Phosphatase Total Protein Albumin Globulin Albumin/Globulin Ratio 12/01/17 19:45 WBC 6.9 RBC 3.53 Hgb 9.8 L D Hct 29.8 L MCV 84.4 MCH 27.8 MCHC 32.9 RDW 14.3 Plt Count 291 MPV 9.4 Gran % Lymph % (Auto) [place] % (Auto) Eos % (Auto) Baso % (Auto) Gran # Lymph # (Auto) [place] # (Auto) Eos # (Auto) Baso # (Auto) Sodium Potassium Chloride Carbon Dioxide Anion Gap BUN Creatinine Est GFR ( Amer) Est GFR (Non-Af Amer) POC Glucose (mg/dL) Random Glucose Calcium Phosphorus Magnesium Total Bilirubin AST ALT Alkaline Phosphatase Total Protein Albumin Globulin Albumin/Globulin Ratio Assessment & Plan - Assessment and Plan (Free Text) Assessment: Colon cancer : s/p right hemicolectomy. rectal bleeding. was on aspirin plavix. Hold aspirin plavix. 2 units of PRBC today. Lasix 20 mg IV after first unit of PRBC. if active bleed to give platelet transfusion because of platelet dysfunction due to antiplatelets agents. iron deficiency anemia due to chronic GI bleed due to colon cancer. CV : stable renal : elevated creatinine 1.9. Thank you Dr. Mcintyre for allowing us to participate in her care. - Date & Time Date: 12/01/17 Time: 08:00
[2017-12-02] MEDS ORDERED: Benzocaine/Menthol (Cepacol) Lozenge MT ONE (03:11)
[2017-12-02] MEDS ORDERED: Dextrose 50% SYRINGE Inj (50 ml) ONE (06:03)
[2017-12-02] MEDS: Insulin Reg-LOW-Coverage SC SCH ×5 (06:08→22:57)
[2017-12-02] MEDS ORDERED: Dextrose 50% SYRINGE Inj (50 ml) IVP ONE (06:09)
[2017-12-02 06:58] LABS: BASO # 0.01 K/mm3 (0.0-2.0); BASO % 0.2 % (0.0-3.0); EOS # 0.2 (0.0-0.7); EOS % 2.6 % (1.5-5.0); GRAN # 3.75 (1.4-6.5); GRAN % 64.2 % (50.0-68.0); LYMPH # 1.4 (1.2-3.4); LYMPH % 23.6 % (22.0-35.0); MEAN CELL VOLUME 84.7 fl (80.0-105.0); MEAN CORPUSCULAR HGB CONC 33.1 g/dl (31.0-37.0); MEAN PLATELET VOLUME 9.5 fl (7.0-11.0); MONO # 0.6 (0.1-0.6); MONO % 9.4 % (1.0-6.0); RBC 3.21 10^6/uL (3.5-6.1); RED CELL DISTRIBUTION WIDTH 14.4 % (11.5-14.5); WHITE BLOOD COUNT 5.8 10^3/ul (4.5-11.0)
[2017-12-02 07:19] LABS: ALB/GLOB RATIO 0.9 (1.1-1.8); ALBUMIN 2.3 g/dL (3.0-4.8); CALCIUM 7.8 mg/dL (8.4-10.5)
[2017-12-02] MEDS ORDERED: Oxycodone/Acetaminophen 5/325 mg Tab PO PRN (07:49)
--- NOTE | 2017-12-02 07:58 | CP.PCM.PN ---
Subjective - Date & Time of Evaluation Date of Evaluation: 12/02/17 Time of Evaluation: 07:55 - Subjective Subjective: General Surgery - Dr. Vega Pt S&E. MARJORIE. Pt complains of sore throat, otherwise no complaints. She is tolerating liquid diet. She had 2 BM yesterday that were normal. No further blood per rectum. No fevers/chills/sob/chest pain/nausea/vomiting. She was OOB to chair, voiding on her own. Objective - Vital Signs/Intake and Output Vital Signs (last 24 hours): Temp Pulse Resp BP Pulse Ox 98.3 F 74 17 155/61 H 100 12/02/17 02:41 12/02/17 03:20 12/02/17 03:20 12/02/17 03:00 12/02/17 03:20 Intake and Output: 12/02/17 12/02/17 06:59 18:59 Intake Total 200 Output Total 500 Balance -300 - Medications Medications: Current Medications Benzocaine/Menthol (Cepacol Sore Throat) 1 brenda MT Q1H PRN PRN Reason: Sore Throat Gabapentin (Neurontin) 600 mg PO HS [facility] PRN Reason: Protocol Last Admin: 12/01/17 23:07 Dose: 600 mg Insulin Detemir (Levemir) 15 unit SC [facility] Last Admin: 12/01/17 22:47 Dose: 15 u Insulin Human Regular (Humulin R Low) 0 units SC Q6 [facility] PRN Reason: Protocol Last Admin: 12/02/17 06:08 Dose: Not Given Ondansetron HCl (Zofran Inj) 4 mg IVP Q4H PRN PRN Reason: Nausea/Vomiting Oxycodone/Acetaminophen (Percocet 5/325 Mg Tab) 1 tab PO Q4H PRN PRN Reason: Pain, moderate (4-7) Stop: 12/05/17 07:50 Pantoprazole Sodium (Protonix Ec Tab) 40 mg PO 0600 [facility] - Labs Labs: 12/02/17 06:00 12/02/17 06:00 PT 12.1 SECONDS (9.4-12.5) 11/30/17 21:55 INR 1.06 11/30/17 21:55 APTT 28.7 Seconds (25.1-36.5) 11/30/17 21:55 - Constitutional Appears: Well, No Acute Distress - Head Exam Head Exam: ATRAUMATIC, NORMAL INSPECTION, NORMOCEPHALIC - Eye Exam Eye Exam: Normal appearance - Respiratory Exam Respiratory Exam: NORMAL BREATHING PATTERN. absent: Respiratory Distress - Cardiovascular Exam Cardiovascular Exam: REGULAR RHYTHM - GI/Abdominal Exam GI & Abdominal Exam: Soft. absent: Distended, Firm, Guarding, Rigid, Tenderness , Rebound Additional comments: [place] c/d/i - Neurological Exam Neurological Exam: Alert, Oriented x3 - Psychiatric Exam Psychiatric exam: Normal Affect, Normal Mood - Skin Skin Exam: Dry, Intact Assessment and Plan - Assessment and Plan (Free Text) Assessment: 77F POD#7 s/p laparoscopic hand assisted, R hemicolectomy w/ post-op lower gi bleed, resolved -Soft Regular diet -H/H stable -PO meds -Encourage OOB/Ambulation/IS -Clear for transfer out of ICU LUIS ENRIQUE Acharya PGY4
--- NOTE | 2017-12-02 08:30 | CP.PCM.PN ---
Subjective - Date & Time of Evaluation Date of Evaluation: 12/02/17 Time of Evaluation: 07:00 - Subjective Subjective: Stable in CCU. No CP or SOB. No recent bleeding. V/S noted. RSR PE: Lungs: clear Cor.: S1S2 Abd.: soft Ext.: no edema Neuro.: alert I/O= [id number] recorded Labs noted: H/H = 12/16 Objective - Vital Signs/Intake and Output Vital Signs (last 24 hours): Temp Pulse Resp BP Pulse Ox 98.3 F 81 17 155/61 H 100 12/02/17 02:41 12/02/17 06:00 12/02/17 03:20 12/02/17 03:00 12/02/17 03:20 Intake and Output: 12/02/17 12/02/17 06:59 18:59 Intake Total 200 Output Total 500 Balance -300 - Medications Medications: Current Medications Atorvastatin Calcium (Lipitor) 20 mg PO DIN [facility] Benzocaine/Menthol (Cepacol Sore Throat) 1 brenda MT Q1H PRN PRN Reason: Sore Throat Gabapentin (Neurontin) 600 mg PO HS [facility] PRN Reason: Protocol Last Admin: 12/01/17 23:07 Dose: 600 mg Insulin Detemir (Levemir) 15 unit SC [facility] Last Admin: 12/01/17 22:47 Dose: 15 u Insulin Human Regular (Humulin R Low) 0 units SC Q6 [facility] PRN Reason: Protocol Last Admin: 12/02/17 06:08 Dose: Not Given Metoprolol Tartrate (Lopressor) 50 mg PO BID [facility] Ondansetron HCl (Zofran Inj) 4 mg IVP Q4H PRN PRN Reason: Nausea/Vomiting Oxycodone/Acetaminophen (Percocet 5/325 Mg Tab) 1 tab PO Q4H PRN PRN Reason: Pain, moderate (4-7) Stop: 12/05/17 07:50 Pantoprazole Sodium (Protonix Ec Tab) 40 mg PO 0600 [facility] - Labs Labs: 12/02/17 06:00 12/02/17 06:00 PT 12.1 SECONDS (9.4-12.5) 11/30/17 21:55 INR 1.06 11/30/17 21:55 APTT 28.7 Seconds (25.1-36.5) 11/30/17 21:55 Assessment and Plan - Assessment and Plan (Free Text) Assessment: GIB s/p rt. hemicolectomy and omentectomy due anastomotic bleeding, while on ASA and Plavix for recent PCI Severe anemia, s/p transfusions Colon carcinoma s/p resection with 1 + LN CAD/PCI 10/06 HLD PAD Diabetes CKD Hypothyroidism PUD Right THR Mild MR macular dgeneration Plan: Resume metoprolol, losartan, Lipitor as aguila. Monitor H/H. Transfuse as necessary As per Surgery/GI/Intensivists OOB to chair as aguila. tel bed Monitor Labs, H/H, I/O, sats., etc. Resume ASA, Plavix (For CAD, recent PCI 10/06) as per GI and Surgery. Will follow.
--- NOTE | 2017-12-02 08:55 | CP.CCUPN ---
<Millicent Westbrook - Last Filed: 12/02/17 11:35> CCU Subjective - Physician Review Subjective (Free Text): Patient seen and examined this am at bedside. No acute events overnight per nursing, no additional bright red blood in BM, BP stable, afebrile. Patient c/ o sore throat but denies CARDOZO, CP SOB, N/V/ bloody BM. Tolerating liquid diet well 12/02/17 08:54 CCU Objective - Vital Signs / Intake & Output Vital Signs (Last 4 hours): Vital Signs Pulse 12/02/17 06:00 81 Intake and Output (Last 8hrs): Intake & Output 12/01/17 12/02/17 12/02/17 22:59 06:59 14:59 Intake Total 1280 200 Output Total 560 500 Balance 720 -300 Intake: IV 200 Left Forearm 200 Oral 380 Blood Product 900 Red Blood Cells Cpd As1 300 Lr Unit [id number] Output: Urine 460 500 Urine, Voided 460 500 Stool 100 0 Other: # Bowel Movements 1 - Physical Exam Head: Positive for: Atraumatic, Normocephalic Pupils: Positive for: PERRL Extroacular Muscles: Positive for: EOMI Conjunctiva: Positive for: Normal Mouth: Positive for: Moist Mucous Membranes Neck: Positive for: Normal Range of Motion Respiratory/Chest: Positive for: Clear to Auscultation, Good Air Exchange. Negative for: Respiratory Distress, Accessory Muscle Use Cardiovascular: Positive for: Regular Rate and Rhythm, Normal S1, S2. Negative for: Murmurs Abdomen: Positive for: Tenderness (slight tenderness to LLQ and appropriate incisional pain). Negative for: Distention, Peritoneal Signs Back: Positive for: Normal Inspection Upper Extremity: Positive for: Normal Inspection. Negative for: Cyanosis, Edema Lower Extremity: Positive for: Normal Inspection. Negative for: Edema Neurological: Positive for: GCS=15, CN II-XII Intact, Speech Normal Skin: Positive for: Warm, Dry, Normal Color. Negative for: Rashes Psychiatric: Positive for: Alert, Oriented x 3, Normal Insight, Normal Concentration - Medications Active Medications: Active Medications Generic Name Dose Route Start Last Admin Trade Name Freq PRN Reason Stop Dose Admin Atorvastatin Calcium 20 mg 12/02/17 17:00 Lipitor PO DIN [facility] Benzocaine/Menthol 1 brenda 12/02/17 07:49 Cepacol Sore Throat MT Q1H PRN Sore Throat Gabapentin 600 mg 12/01/17 23:00 12/01/17 23:07 Neurontin PO 600 mg HS [facility] Administration Protocol Insulin Detemir 15 unit 11/30/17 23:30 12/01/17 22:47 Levemir SC 15 u HS [facility] Administration Insulin Human Regular 0 units 12/01/17 00:00 12/02/17 06:08 Humulin R Low SC Not Given Q6 [facility] Protocol Losartan Potassium 100 mg 12/02/17 10:00 Cozaar PO DAILY [facility] Metoprolol Tartrate 50 mg 12/02/17 10:00 Lopressor PO BID [facility] Ondansetron HCl 4 mg 11/30/17 23:19 Zofran Inj IVP Q4H PRN Nausea/Vomiting Oxycodone/Acetaminophen 1 tab 12/02/17 07:49 Percocet 5/325 Mg Tab PO 12/05/17 07:50 Q4H PRN Pain, moderate (4-7) Pantoprazole Sodium 40 mg 12/03/17 09:00 Protonix Ec Tab PO 0600 [facility] - Patient Studies Lab Studies: Lab Studies 12/02/17 12/02/17 12/02/17 Range/Units 06:00 06:00 05:58 WBC 5.8 (4.5-11.0) 10^3/ul RBC 3.21 L (3.5-6.1) 10^6/uL Hgb 9.0 L (12.0-16.0) g/dL Hct 27.2 L (36.0-48.0) % MCV 84.7 (80.0-105.0) fl MCH 28.0 (25.0-35.0) pg MCHC 33.1 (31.0-37.0) g/dl RDW 14.4 (11.5-14.5) % Plt Count 265 (120.0-450.0) 10^3/uL MPV 9.5 (7.0-11.0) fl Gran % 64.2 (50.0-68.0) % Lymph % (Auto) 23.6 (22.0-35.0) % Lamb % (Auto) 9.4 H (1.0-6.0) % Eos % (Auto) 2.6 (1.5-5.0) % Baso % (Auto) 0.2 (0.0-3.0) % Gran # 3.75 (1.4-6.5) Lymph # (Auto) 1.4 (1.2-3.4) Lamb # (Auto) 0.6 (0.1-0.6) Eos # (Auto) 0.2 (0.0-0.7) Baso # (Auto) 0.01 (0.0-2.0) K/mm3 Sodium 138 (132-148) mmol/L Potassium 4.5 (3.6-5.0) mmol/L Chloride 113 H (98-107) mmol/L Carbon Dioxide 21 (21-33) mmol/L Anion Gap 8 L (10-20) BUN 15 (7-21) mg/dL Creatinine 1.2 (0.7-1.2) mg/dl Est GFR ( Amer) 53 Est GFR (Non-Af Amer) 44 POC Glucose (mg/dL) 49 L (65-110) mg/dL Random Glucose 161 H (70-110) mg/dL Calcium 7.8 L (8.4-10.5) mg/dL Phosphorus 3.6 (2.5-4.5) mg/dL Magnesium 1.7 (1.7-2.2) mg/dL Total Bilirubin 0.2 (0.2-1.3) mg/dL AST 16 (14-36) U/L ALT 16 (7-56) U/L Alkaline Phosphatase 66 (38-126) U/L Total Protein 4.7 L (5.8-8.3) g/dL Albumin 2.3 L (3.0-4.8) g/dL Globulin 2.4 gm/dL Albumin/Globulin Ratio 0.9 L (1.1-1.8) 12/01/17 12/01/17 12/01/17 Range/Units 23:36 19:45 17:40 WBC 6.9 (4.5-11.0) 10^3/ul RBC 3.53 (3.5-6.1) 10^6/uL Hgb 9.8 L D (12.0-16.0) g/dL Hct 29.8 L (36.0-48.0) % MCV 84.4 (80.0-105.0) fl MCH 27.8 (25.0-35.0) pg MCHC 32.9 (31.0-37.0) g/dl RDW 14.3 (11.5-14.5) % Plt Count 291 (120.0-450.0) 10^3/uL MPV 9.4 (7.0-11.0) fl Gran % (50.0-68.0) % Lymph % (Auto) (22.0-35.0) % Lamb % (Auto) (1.0-6.0) % Eos % (Auto) (1.5-5.0) % Baso % (Auto) (0.0-3.0) % Gran # (1.4-6.5) Lymph # (Auto) (1.2-3.4) Lamb # (Auto) (0.1-0.6) Eos # (Auto) (0.0-0.7) Baso # (Auto) (0.0-2.0) K/mm3 Sodium (132-148) mmol/L Potassium (3.6-5.0) mmol/L Chloride (98-107) mmol/L Carbon Dioxide (21-33) mmol/L Anion Gap (10-20) BUN (7-21) mg/dL Creatinine (0.7-1.2) mg/dl Est GFR ( Amer) Est GFR (Non-Af Amer) POC Glucose (mg/dL) 158 H 207 H (65-110) mg/dL Random Glucose (70-110) mg/dL Calcium (8.4-10.5) mg/dL Phosphorus (2.5-4.5) mg/dL Magnesium (1.7-2.2) mg/dL Total Bilirubin (0.2-1.3) mg/dL AST (14-36) U/L ALT (7-56) U/L Alkaline Phosphatase (38-126) U/L Total Protein (5.8-8.3) g/dL Albumin (3.0-4.8) g/dL Globulin gm/dL Albumin/Globulin Ratio (1.1-1.8) 12/01/17 12/01/17 Range/Units 11:43 07:40 WBC (4.5-11.0) 10^3/ul RBC (3.5-6.1) 10^6/uL Hgb (12.0-16.0) g/dL Hct (36.0-48.0) % MCV (80.0-105.0) fl MCH (25.0-35.0) pg MCHC (31.0-37.0) g/dl RDW (11.5-14.5) % Plt Count (120.0-450.0) 10^3/uL MPV (7.0-11.0) fl Gran % (50.0-68.0) % Lymph % (Auto) (22.0-35.0) % Lamb % (Auto) (1.0-6.0) % Eos % (Auto) (1.5-5.0) % Baso % (Auto) (0.0-3.0) % Gran # (1.4-6.5) Lymph # (Auto) (1.2-3.4) Lamb # (Auto) (0.1-0.6) Eos # (Auto) (0.0-0.7) Baso # (Auto) (0.0-2.0) K/mm3 Sodium (132-148) mmol/L Potassium (3.6-5.0) mmol/L Chloride (98-107) mmol/L Carbon Dioxide (21-33) mmol/L Anion Gap (10-20) BUN (7-21) mg/dL Creatinine (0.7-1.2) mg/dl Est GFR ( Amer) Est GFR (Non-Af Amer) POC Glucose (mg/dL) 159 H 206 H (65-110) mg/dL Random Glucose (70-110) mg/dL Calcium (8.4-10.5) mg/dL Phosphorus (2.5-4.5) mg/dL Magnesium (1.7-2.2) mg/dL Total Bilirubin (0.2-1.3) mg/dL AST (14-36) U/L ALT (7-56) U/L Alkaline Phosphatase (38-126) U/L Total Protein (5.8-8.3) g/dL Albumin (3.0-4.8) g/dL Globulin gm/dL Albumin/Globulin Ratio (1.1-1.8) Laboratory Results - last 24 hr 12/01/17 12/01/17 12/01/17 07:40 11:43 17:40 WBC RBC Hgb Hct MCV MCH MCHC RDW Plt Count MPV Gran % Lymph % (Auto) Lamb % (Auto) Eos % (Auto) Baso % (Auto) Gran # Lymph # (Auto) Lamb # (Auto) Eos # (Auto) Baso # (Auto) Sodium Potassium Chloride Carbon Dioxide Anion Gap BUN Creatinine Est GFR ( Amer) Est GFR (Non-Af Amer) POC Glucose (mg/dL) 206 H 159 H 207 H Random Glucose Calcium Phosphorus Magnesium Total Bilirubin AST ALT Alkaline Phosphatase Total Protein Albumin Globulin Albumin/Globulin Ratio 12/01/17 12/01/17 12/02/17 19:45 23:36 05:58 WBC 6.9 RBC 3.53 Hgb 9.8 L D Hct 29.8 L MCV 84.4 MCH 27.8 MCHC 32.9 RDW 14.3 Plt Count 291 MPV 9.4 Gran % Lymph % (Auto) Lamb % (Auto) Eos % (Auto) Baso % (Auto) Gran # Lymph # (Auto) Lamb # (Auto) Eos # (Auto) Baso # (Auto) Sodium Potassium Chloride Carbon Dioxide Anion Gap BUN Creatinine Est GFR ( Amer) Est GFR (Non-Af Amer) POC Glucose (mg/dL) 158 H 49 L Random Glucose Calcium Phosphorus Magnesium Total Bilirubin AST ALT Alkaline Phosphatase Total Protein Albumin Globulin Albumin/Globulin Ratio 12/02/17 12/02/17 06:00 06:00 WBC 5.8 RBC 3.21 L Hgb 9.0 L Hct 27.2 L MCV 84.7 MCH 28.0 MCHC 33.1 RDW 14.4 Plt Count 265 MPV 9.5 Gran % 64.2 Lymph % (Auto) 23.6 Lamb % (Auto) 9.4 H Eos % (Auto) 2.6 Baso % (Auto) 0.2 Gran # 3.75 Lymph # (Auto) 1.4 Lamb # (Auto) 0.6 Eos # (Auto) 0.2 Baso # (Auto) 0.01 Sodium 138 Potassium 4.5 Chloride 113 H Carbon Dioxide 21 Anion Gap 8 L BUN 15 Creatinine 1.2 Est GFR ( Amer) 53 Est GFR (Non-Af Amer) 44 POC Glucose (mg/dL) Random Glucose 161 H Calcium 7.8 L Phosphorus 3.6 Magnesium 1.7 Total Bilirubin 0.2 AST 16 ALT 16 Alkaline Phosphatase 66 Total Protein 4.7 L Albumin 2.3 L Globulin 2.4 Albumin/Globulin Ratio 0.9 L Fingerstick Blood Sugar Results: 49 Review of Systems - Review of Systems All systems: reviewed and no additional remarkable complaints except (as per HPI ) Critical Care Progress Note - Nutrition Nutrition: Nutrition Category Date Time Status Liquid Diet [DIET] Diets 12/02/17 Breakfast Ordered Assessment/Plan - Assessment and Plan (Free Text) Assessment: This is a 77 year old female with PMH of HTN, DM2, hypothyroidism, macular degeneration, CAD s/p MELODY stent in LAD on 09/29/17, colon cancer and PVD admitted to the ICU for management of possible lower GI bleed s/p hemicolectomy 11/25 restarted on ASA and plavix POD 3. Patient was in the TCU for rehab when she was noted to have large bloody bowel movements, with hgb dropping from 7.7 to 6.7. Surgery and GI on consult. recieved total of 4 u PRBC, hgb stable at 9.2. two normal BM over last 24 hours, normotensive, nontachycardic. Clear for transfer out of ICU Plan: Neuro: -maintain normothermia -AAO x3, moving extremities spontaneously past midline Cardio: -maintain MAP>65 -will monitor vitals including HR and BP closely -BP currently in the 140s/70s, HR 80s -cardiac cath 09/29/2017 showed severe LAD stenosis treated with MELODY, preserved LV systolic function Lungs: -SaO2 >90% -supplementary O2 PRN -CXR shows no active disease, hyperinflation GI: - normal BM yesterday -FLD diet -protonix bid -Colonoscopy on 11/11/17 showed an ulcerated completely obstructing large mass was found in the proximal transverse colon. Internal hemorrhoids. -Hemicolectomy on 11/29/17 for obstructing adenocarcinoma of the transverse colon -GI on consult, Dr. Chow, agreed with the recommendations, rec hold off imaging for now. -Surgery on consult, Dr. Vega Heme: -Hgb stable at 9.2 -recieved 4 PRBC and 1 PLT total -holding ASA and plavix Renal: -maintain euvolemia -avoid nephrotoxic agents, hypochloremia -replace electrolytes as needed -BUN/Cr 15/1.2, will monitor -NS @ 100cc/hr Endo: - recieved D50 this am for one episode of hypoglycemia, BS 59 - returned quickly to normoglycemia -maintain euglycemia -insulin levemir 15 units HS, insulin regular q6 ID: -WBC is 5.8 today WNL, afebrile Patient seen and case discussed with attending, Dr. Anthony Westbrook, PGY-1 - Date & Time Date: 12/02/17 <Aston Cruz - Last Filed: 12/02/17 11:51> CCU Objective - Vital Signs / Intake & Output Intake and Output (Last 8hrs): Intake & Output 12/01/17 12/02/17 12/02/17 22:59 06:59 14:59 Intake Total 1280 200 Output Total 560 500 Balance 720 -300 Intake: IV 200 Left Forearm 200 Oral 380 Blood Product 900 Red Blood Cells Cpd As1 300 Lr Unit [id number] Output: Urine 460 500 Urine, Voided 460 500 Stool 100 0 Other: # Bowel Movements 1 - Medications Active Medications: Active Medications Generic Name Dose Route Start Last Admin Trade Name Freq PRN Reason Stop Dose Admin Atorvastatin Calcium 20 mg 12/02/17 17:00 Lipitor PO DIN [facility] Benzocaine/Menthol 1 brenda 12/02/17 07:49 Cepacol Sore Throat MT Q1H PRN Sore Throat Gabapentin 600 mg 12/01/17 23:00 12/01/17 23:07 Neurontin PO 600 mg HS [facility] Administration Protocol Insulin Detemir 15 unit 11/30/17 23:30 12/01/17 22:47 Levemir SC 15 u HS [facility] Administration Insulin Human Regular 0 units 12/01/17 00:00 12/02/17 06:08 Humulin R Low SC Not Given Q6 [facility] Protocol Losartan Potassium 100 mg 12/02/17 10:00 12/02/17 11:29 Cozaar PO 100 mg DAILY [facility] Administration Metoprolol Tartrate 50 mg 12/02/17 10:00 12/02/17 11:29 Lopressor PO 50 mg BID [facility] Administration Ondansetron HCl 4 mg 11/30/17 23:19 Zofran Inj IVP Q4H PRN Nausea/Vomiting Oxycodone/Acetaminophen 1 tab 12/02/17 07:49 Percocet 5/325 Mg Tab PO 12/05/17 07:50 Q4H PRN Pain, moderate (4-7) Pantoprazole Sodium 40 mg 12/03/17 09:00 Protonix Ec Tab PO 0600 [facility] - Patient Studies Lab Studies: Lab Studies 12/02/17 12/02/17 12/02/17 Range/Units 06:00 06:00 05:58 WBC 5.8 (4.5-11.0) 10^3/ul RBC 3.21 L (3.5-6.1) 10^6/uL Hgb 9.0 L (12.0-16.0) g/dL Hct 27.2 L (36.0-48.0) % MCV 84.7 (80.0-105.0) fl MCH 28.0 (25.0-35.0) pg MCHC 33.1 (31.0-37.0) g/dl RDW 14.4 (11.5-14.5) % Plt Count 265 (120.0-450.0) 10^3/uL MPV 9.5 (7.0-11.0) fl Gran % 64.2 (50.0-68.0) % Lymph % (Auto) 23.6 (22.0-35.0) % Lamb % (Auto) 9.4 H (1.0-6.0) % Eos % (Auto) 2.6 (1.5-5.0) % Baso % (Auto) 0.2 (0.0-3.0) % Gran # 3.75 (1.4-6.5) Lymph # (Auto) 1.4 (1.2-3.4) Lamb # (Auto) 0.6 (0.1-0.6) Eos # (Auto) 0.2 (0.0-0.7) Baso # (Auto) 0.01 (0.0-2.0) K/mm3 Sodium 138 (132-148) mmol/L Potassium 4.5 (3.6-5.0) mmol/L Chloride 113 H (98-107) mmol/L Carbon Dioxide 21 (21-33) mmol/L Anion Gap 8 L (10-20) BUN 15 (7-21) mg/dL Creatinine 1.2 (0.7-1.2) mg/dl Est GFR ( Amer) 53 Est GFR (Non-Af Amer) 44 POC Glucose (mg/dL) 49 L (65-110) mg/dL Random Glucose 161 H (70-110) mg/dL Calcium 7.8 L (8.4-10.5) mg/dL Phosphorus 3.6 (2.5-4.5) mg/dL Magnesium 1.7 (1.7-2.2) mg/dL Total Bilirubin 0.2 (0.2-1.3) mg/dL AST 16 (14-36) U/L ALT 16 (7-56) U/L Alkaline Phosphatase 66 (38-126) U/L Total Protein 4.7 L (5.8-8.3) g/dL Albumin 2.3 L (3.0-4.8) g/dL Globulin 2.4 gm/dL Albumin/Globulin Ratio 0.9 L (1.1-1.8) 12/01/17 12/01/17 12/01/17 Range/Units 23:36 19:45 17:40 WBC 6.9 (4.5-11.0) 10^3/ul RBC 3.53 (3.5-6.1) 10^6/uL Hgb 9.8 L D (12.0-16.0) g/dL Hct 29.8 L (36.0-48.0) % MCV 84.4 (80.0-105.0) fl MCH 27.8 (25.0-35.0) pg MCHC 32.9 (31.0-37.0) g/dl RDW 14.3 (11.5-14.5) % Plt Count 291 (120.0-450.0) 10^3/uL MPV 9.4 (7.0-11.0) fl Gran % (50.0-68.0) % Lymph % (Auto) (22.0-35.0) % Lamb % (Auto) (1.0-6.0) % Eos % (Auto) (1.5-5.0) % Baso % (Auto) (0.0-3.0) % Gran # (1.4-6.5) Lymph # (Auto) (1.2-3.4) Lamb # (Auto) (0.1-0.6) Eos # (Auto) (0.0-0.7) Baso # (Auto) (0.0-2.0) K/mm3 Sodium (132-148) mmol/L Potassium (3.6-5.0) mmol/L Chloride (98-107) mmol/L Carbon Dioxide (21-33) mmol/L Anion Gap (10-20) BUN (7-21) mg/dL Creatinine (0.7-1.2) mg/dl Est GFR ( Amer) Est GFR (Non-Af Amer) POC Glucose (mg/dL) 158 H 207 H (65-110) mg/dL Random Glucose (70-110) mg/dL Calcium (8.4-10.5) mg/dL Phosphorus (2.5-4.5) mg/dL Magnesium (1.7-2.2) mg/dL Total Bilirubin (0.2-1.3) mg/dL AST (14-36) U/L ALT (7-56) U/L Alkaline Phosphatase (38-126) U/L Total Protein (5.8-8.3) g/dL Albumin (3.0-4.8) g/dL Globulin gm/dL Albumin/Globulin Ratio (1.1-1.8) 12/01/17 12/01/17 Range/Units 11:43 07:40 WBC (4.5-11.0) 10^3/ul RBC (3.5-6.1) 10^6/uL Hgb (12.0-16.0) g/dL Hct (36.0-48.0) % MCV (80.0-105.0) fl MCH (25.0-35.0) pg MCHC (31.0-37.0) g/dl RDW (11.5-14.5) % Plt Count (120.0-450.0) 10^3/uL MPV (7.0-11.0) fl Gran % (50.0-68.0) % Lymph % (Auto) (22.0-35.0) % Lamb % (Auto) (1.0-6.0) % Eos % (Auto) (1.5-5.0) % Baso % (Auto) (0.0-3.0) % Gran # (1.4-6.5) Lymph # (Auto) (1.2-3.4) Lamb # (Auto) (0.1-0.6) Eos # (Auto) (0.0-0.7) Baso # (Auto) (0.0-2.0) K/mm3 Sodium (132-148) mmol/L Potassium (3.6-5.0) mmol/L Chloride (98-107) mmol/L Carbon Dioxide (21-33) mmol/L Anion Gap (10-20) BUN (7-21) mg/dL Creatinine (0.7-1.2) mg/dl Est GFR ( Amer) Est GFR (Non-Af Amer) POC Glucose (mg/dL) 159 H 206 H (65-110) mg/dL Random Glucose (70-110) mg/dL Calcium (8.4-10.5) mg/dL Phosphorus (2.5-4.5) mg/dL Magnesium (1.7-2.2) mg/dL Total Bilirubin (0.2-1.3) mg/dL AST (14-36) U/L ALT (7-56) U/L Alkaline Phosphatase (38-126) U/L Total Protein (5.8-8.3) g/dL Albumin (3.0-4.8) g/dL Globulin gm/dL Albumin/Globulin Ratio (1.1-1.8) Laboratory Results - last 24 hr 12/01/17 12/01/17 12/01/17 07:40 11:43 17:40 WBC RBC Hgb Hct MCV MCH MCHC RDW Plt Count MPV Gran % Lymph % (Auto) Lamb % (Auto) Eos % (Auto) Baso % (Auto) Gran # Lymph # (Auto) Lamb # (Auto) Eos # (Auto) Baso # (Auto) Sodium Potassium Chloride Carbon Dioxide Anion Gap BUN Creatinine Est GFR ( Amer) Est GFR (Non-Af Amer) POC Glucose (mg/dL) 206 H 159 H 207 H Random Glucose Calcium Phosphorus Magnesium Total Bilirubin AST ALT Alkaline Phosphatase Total Protein Albumin Globulin Albumin/Globulin Ratio 12/01/17 12/01/17 12/02/17 19:45 23:36 05:58 WBC 6.9 RBC 3.53 Hgb 9.8 L D Hct 29.8 L MCV 84.4 MCH 27.8 MCHC 32.9 RDW 14.3 Plt Count 291 MPV 9.4 Gran % Lymph % (Auto) Lamb % (Auto) Eos % (Auto) Baso % (Auto) Gran # Lymph # (Auto) Lamb # (Auto) Eos # (Auto) Baso # (Auto) Sodium Potassium Chloride Carbon Dioxide Anion Gap BUN Creatinine Est GFR ( Amer) Est GFR (Non-Af Amer) POC Glucose (mg/dL) 158 H 49 L Random Glucose Calcium Phosphorus Magnesium Total Bilirubin AST ALT Alkaline Phosphatase Total Protein Albumin Globulin Albumin/Globulin Ratio 12/02/17 12/02/17 06:00 06:00 WBC 5.8 RBC 3.21 L Hgb 9.0 L Hct 27.2 L MCV 84.7 MCH 28.0 MCHC 33.1 RDW 14.4 Plt Count 265 MPV 9.5 Gran % 64.2 Lymph % (Auto) 23.6 Lamb % (Auto) 9.4 H Eos % (Auto) 2.6 Baso % (Auto) 0.2 Gran # 3.75 Lymph # (Auto) 1.4 Lamb # (Auto) 0.6 Eos # (Auto) 0.2 Baso # (Auto) 0.01 Sodium 138 Potassium 4.5 Chloride 113 H Carbon Dioxide 21 Anion Gap 8 L BUN 15 Creatinine 1.2 Est GFR ( Amer) 53 Est GFR (Non-Af Amer) 44 POC Glucose (mg/dL) Random Glucose 161 H Calcium 7.8 L Phosphorus 3.6 Magnesium 1.7 Total Bilirubin 0.2 AST 16 ALT 16 Alkaline Phosphatase 66 Total Protein 4.7 L Albumin 2.3 L Globulin 2.4 Albumin/Globulin Ratio 0.9 L Critical Care Progress Note - Nutrition Nutrition: Nutrition Category Date Time Status Liquid Diet [DIET] Diets 12/02/17 Breakfast Ordered Assessment/Plan - Assessment and Plan (Free Text) Plan: Patient seen and examined on rounds with resident, agree with note with following additions/exceptions: Patient is 77yo female with PMHx of colon ca s/p hemicolectomy, CAD with recent PCI with stents, anemia, DM, presented to MICU with lower GIB, in setting of ASA /Plavix usage 2/2 cardiac stents. Patient currently afebrile, BP stable HH stable, no bloody BMs over last 24 hours. No major complaints. Lower GIB CAD with stents DM Anemia, stable Recommend: - supp o2 as needed, duonebs PRN, IS - no ID issues, follow up cultures - BP control - IVF hydration - monitor HH - resume ASA/Plavix as per GI/Cardio - follow up surgery, cleared for transfer - FS control, Levemir, MARGE - Statin - follow up cardiology, GI - Protonix - DVT ppx, SCDs - transfer to telemetry
--- NOTE | 2017-12-02 11:13 | PN ---
DATE: 12/02/2017 SUBJECTIVE: The patient is lying in CCU. She had one episode of dark red blood per rectum yesterday, none since. Her hemoglobin is 9 this morning. She denies any abdominal pain, nausea, or vomiting. PHYSICAL EXAMINATION: VITAL SIGNS: Reveal temperature of 98.3, blood pressure 155/61, heart rate of 81. HEENT: Reveals sclerae to be white. Conjunctivae pale. NECK: Supple. CHEST: Reveals lungs to be clear. HEART: Reveals a regular rate and rhythm. ABDOMEN: Obese, soft. She has a healing incision in the midline. There is no drainage from the incision. EXTREMITIES: Show trace pedal edema. LABORATORY DATA: Reveals hemoglobin 9, white blood cell count 5.8. BUN 15, creatinine 1.2. IMPRESSION: This is a 77-year-old female with coronary artery disease, status post drug eluding stent placement in 09/2017 with right hemicolectomy 1 week ago for an obstructing colon cancer. The patient did well postop, but developed bright red blood per rectum 2 days ago. She was on aspirin and Plavix for a drug eluding stent. Her aspirin and Plavix have stopped. I suspect that the bleeding is from the surgical anastomosis. RECOMMENDATIONS: 1. Follow serial hematocrits. 2. We will increase the patient's diet to full liquids . Amor MD Claudine
[2017-12-02] MEDS: Benzocaine/Menthol (Cepacol) Lozenge MT PRN ×2 (14:15→20:03)
--- NOTE | 2017-12-02 14:46 | PN ---
DATE: 12/02/2017 SUBJECTIVE: A 77-year-old white female status post colon surgery for a hemicolectomy for colon cancer. The patient had postoperatively been doing well and she bled. She has been re-transfused. Her hemoglobin is now at 9. Her last hemoglobin was 9.8 after transfusion. It might be a just equilibrating her hemoglobin to suggest no abdominal pain. She did have a bowel movement today, which is nonbloody. PHYSICAL EXAMINATION: VITAL SIGNS: Stable. CHEST: Clear to auscultation. ABDOMEN: Soft. The patient is tolerating a clear liquid diet today. PLAN: We will follow the patient for serial hemoglobins and stool for occult blood. The patient will be transferred if stable. Kameron Mcintyre MD
[2017-12-02] MEDS: Insulin Detemir 100 units/ml Vial (Levemir) SC SCH (22:02)
[2017-12-03 07:32] LABS: BASO # 0.01 K/mm3 (0.0-2.0); BASO % 0.2 % (0.0-3.0); EOS # 0.1 (0.0-0.7); EOS % 1.9 % (1.5-5.0); GRAN # 4.39 (1.4-6.5); GRAN % 68.8 % (50.0-68.0); HEMOGLOBIN 9.8 g/dL (12.0-16.0); LYMPH # 1.2 (1.2-3.4); LYMPH % 19.4 % (22.0-35.0); MEAN CELL VOLUME 84.7 fl (80.0-105.0); MEAN CORPUSCULAR HEMOGLOBIN 27.7 pg (25.0-35.0); MEAN CORPUSCULAR HGB CONC 32.7 g/dl (31.0-37.0); MEAN PLATELET VOLUME 9.4 fl (7.0-11.0); MONO # 0.6 (0.1-0.6); MONO % 9.7 % (1.0-6.0); RBC 3.54 10^6/uL (3.5-6.1); RED CELL DISTRIBUTION WIDTH 14.3 % (11.5-14.5); WHITE BLOOD COUNT 6.4 10^3/ul (4.5-11.0)
--- NOTE | 2017-12-03 07:51 | CP.PCM.PN ---
Subjective - Date & Time of Evaluation Date of Evaluation: 12/03/17 Time of Evaluation: 07:00 - Subjective Subjective: Stable on 5 R No CP or SOB. She feels OK. No bleeding. V/S noted. PE: Lungs: clear Cor.: S1S2 Abd.: soft Ext.: no edema Neuro.: alert Labs noted: H/H = 9.8/30 Objective - Vital Signs/Intake and Output Vital Signs (last 24 hours): Temp Pulse Resp BP Pulse Ox 99.3 F 79 18 179/69 H 97 12/02/17 22:07 12/02/17 22:07 12/02/17 22:07 12/02/17 22:07 12/02/17 22:07 Intake and Output: 12/03/17 12/03/17 06:59 18:59 Intake Total 180 Balance 180 - Medications Medications: Current Medications Amlodipine Besylate (Norvasc) 5 mg PO DAILY [facility] Atorvastatin Calcium (Lipitor) 20 mg PO DIN [facility] Last Admin: 12/02/17 17:54 Dose: 20 mg Benzocaine/Menthol (Cepacol Sore Throat) 1 brenda MT Q1H PRN PRN Reason: Sore Throat Last Admin: 12/02/17 20:03 Dose: 1 brenda Gabapentin (Neurontin) 600 mg PO HS [facility] PRN Reason: Protocol Last Admin: 12/02/17 21:07 Dose: 600 mg Insulin Detemir (Levemir) 15 unit SC HS [facility] Last Admin: 12/02/17 22:02 Dose: 15 u Insulin Human Regular (Humulin R Low) 0 units SC Q6 [facility] PRN Reason: Protocol Last Admin: 12/02/17 22:57 Dose: Not Given Losartan Potassium (Cozaar) 100 mg PO DAILY [facility] Last Admin: 12/02/17 11:29 Dose: 100 mg Metoprolol Tartrate (Lopressor) 50 mg PO BID [facility] Last Admin: 12/02/17 17:55 Dose: 50 mg Ondansetron HCl (Zofran Inj) 4 mg IVP Q4H PRN PRN Reason: Nausea/Vomiting Oxycodone/Acetaminophen (Percocet 5/325 Mg Tab) 1 tab PO Q4H PRN PRN Reason: Pain, moderate (4-7) Stop: 12/05/17 07:50 Pantoprazole Sodium (Protonix Ec Tab) 40 mg PO 0600 [facility] - Labs Labs: 12/03/17 07:00 12/02/17 06:00 PT 12.1 SECONDS (9.4-12.5) 11/30/17 21:55 INR 1.06 11/30/17 21:55 APTT 28.7 Seconds (25.1-36.5) 11/30/17 21:55 Assessment and Plan - Assessment and Plan (Free Text) Assessment: GIB s/p rt. 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 Resume amlodipine Monitor H/H. Transfuse as necessary As per Surgery/GI/Dr. Miguelina MARSHALL as aguila. Monitor Labs, H/H, etc Resume ASA, Plavix (For CAD, recent PCI 10/06) as soon as possible as per GI and Surgery. Will follow.
[2017-12-03 08:06] LABS: ALBUMIN 2.7 g/dL (3.0-4.8); CALCIUM 8.8 mg/dL (8.4-10.5)
[2017-12-03] MEDS: Insulin Reg-LOW-Coverage SC SCH ×4 (08:17→22:00)
--- NOTE | 2017-12-03 08:22 | CP.PCM.PN ---
Subjective - Date & Time of Evaluation Date of Evaluation: 12/03/17 Time of Evaluation: 08:18 - Subjective Subjective: Surgery Note for Dr Vega Pt seen and examined at bedside. Pt reports normal bowel movements yesterday and denies any acute events overnight. Pt is able to ambulate well and is agreeable to increasing daily PT work. Pt denies cp sob n/v f/c. Pt stable for TCU Objective - Vital Signs/Intake and Output Vital Signs (last 24 hours): Temp Pulse Resp BP Pulse Ox 99.3 F 79 18 179/69 H 97 12/02/17 22:07 12/02/17 22:07 12/02/17 22:07 12/02/17 22:07 12/02/17 22:07 Intake and Output: 12/03/17 12/03/17 06:59 18:59 Intake Total 180 Balance 180 - Medications Medications: Current Medications Amlodipine Besylate (Norvasc) 5 mg PO DAILY [facility] Atorvastatin Calcium (Lipitor) 20 mg PO DIN [facility] Last Admin: 12/02/17 17:54 Dose: 20 mg Benzocaine/Menthol (Cepacol Sore Throat) 1 brenda MT Q1H PRN PRN Reason: Sore Throat Last Admin: 12/02/17 20:03 Dose: 1 brenda Gabapentin (Neurontin) 600 mg PO HS [facility] PRN Reason: Protocol Last Admin: 12/02/17 21:07 Dose: 600 mg Insulin Detemir (Levemir) 15 unit SC HS [facility] Last Admin: 12/02/17 22:02 Dose: 15 u Insulin Human Regular (Humulin R Low) 0 units SC Q6 [facility] PRN Reason: Protocol Last Admin: 12/03/17 08:17 Dose: Not Given Losartan Potassium (Cozaar) 100 mg PO DAILY [facility] Last Admin: 12/02/17 11:29 Dose: 100 mg Metoprolol Tartrate (Lopressor) 50 mg PO BID [facility] Last Admin: 12/02/17 17:55 Dose: 50 mg Ondansetron HCl (Zofran Inj) 4 mg IVP Q4H PRN PRN Reason: Nausea/Vomiting Oxycodone/Acetaminophen (Percocet 5/325 Mg Tab) 1 tab PO Q4H PRN PRN Reason: Pain, moderate (4-7) Stop: 12/05/17 07:50 Pantoprazole Sodium (Protonix Ec Tab) 40 mg PO 0600 [facility] - Labs Labs: 12/03/17 07:00 12/03/17 07:00 PT 12.1 SECONDS (9.4-12.5) 11/30/17 21:55 INR 1.06 11/30/17 21:55 APTT 28.7 Seconds (25.1-36.5) 11/30/17 21:55 - Additional Findings Additional findings: - Constitutional Appears: Well, No Acute Distress - Head Exam Head Exam: ATRAUMATIC, NORMAL INSPECTION, NORMOCEPHALIC - Eye Exam Eye Exam: Normal appearance - Respiratory Exam Respiratory Exam: NORMAL BREATHING PATTERN. absent: Respiratory Distress - Cardiovascular Exam Cardiovascular Exam: REGULAR RHYTHM - GI/Abdominal Exam GI & Abdominal Exam: Soft. absent: Distended, Firm, Guarding, Rigid, Tenderness , Rebound Additional comments: [place] c/d/i - Neurological Exam Neurological Exam: Alert, Oriented x3 - Psychiatric Exam Psychiatric exam: Normal Affect, Normal Mood - Skin Skin Exam: Dry, Intact Assessment and Plan - Assessment and Plan (Free Text) Assessment: 77F POD#8 s/p laparoscopic hand assisted, R hemicolectomy w/ post-op lower gi bleed, resolved Plan: -Soft Regular diet -H/H stable, uptrending -PO meds -Encourage OOB/Ambulation/IS -Clear for transfer to TCU
[2017-12-03] MEDS: Pantoprazole 40 mg EC Tab PO SCH (08:53)
--- NOTE | 2017-12-03 11:00 | PN ---
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 The patient has history of CAD, on Plavix because of recent stenting. Plavix has been held. She has no further bleeding. Her H and H is stable at this point. She was transferred from ICU to the floor. PHYSICAL EXAMINATION: VITAL SIGNS: Stable. Temperature is 99.3, blood pressure 179/69. LABORATORY DATA: Hemoglobin is stable at 9.8. PLAN: The patient will start physical therapy and occupational therapy, possible TCU evaluation and close monitoring of her H and H. Kameron Mcintyre MD
[2017-12-03] MEDS: Magnesium Oxide 400 mg Tab UD PO SCH ×2 (11:59→18:27)
--- NOTE | 2017-12-03 12:52 | PN ---
DATE: 12/03/2017 SUBJECTIVE: The patient is lying in bed, comfortable. She is out of Intensive Care. Her nurse states that she had one small dark maroon-colored bowel movement yesterday. She has not had any further bleeding today. Her hemoglobin is stable at 9.8 g. PHYSICAL EXAMINATION: VITAL SIGNS: Revealed temperature of 99.3, blood pressure 175/72, heart rate of 114. HEENT: Reveals sclerae to be white. Conjunctivae pink. NECK: Supple. CHEST: Lungs are clear. HEART: Reveals regular rate and rhythm. ABDOMEN: Soft, obese. She has a fresh incision left paramedian which is healing without any drainage. EXTREMITIES: Show trace pedal edema. LABORATORY DATA: Reveal hemoglobin up to 9.8, white blood cell count 6.4. Chemistries reveal BUN 11, creatinine 1.1, albumin is 2.7. AST, ALT, alk phos were all normal. IMPRESSION: A 77-year-old female with coronary artery disease status post drug-eluting stent placement approximately 10 weeks ago, status post right hemicolectomy for a obstructing transverse colon cancer who developed late lower gastrointestinal bleed most likely secondary to bleeding from her surgical anastomotic site after being restarted on aspirin and Plavix. The patient has not had any bleeding in approximately 48 hours. Her hemoglobin has remained stable. RECOMMENDATIONS: 1. Continue close monitoring for recurrent GI bleed. 2. The patient is on a regular diet and is tolerating 3. We would hold on aspirin and Plavix for at least another 72 hours. Amor Chow MD
--- NOTE | 2017-12-03 14:46 | RAD ---
Date of service: 12/03/2017 HISTORY: Elevated Temp COMPARISON: 11/30/2017 TECHNIQUE: Chest PA and lateral FINDINGS: LUNGS: No active pulmonary disease. PLEURA: No significant pleural effusion identified. No pneumothorax apparent. CARDIOVASCULAR: Normal. OSSEOUS STRUCTURES: No significant abnormalities. VISUALIZED UPPER ABDOMEN: Normal. OTHER FINDINGS: None. IMPRESSION: No active disease.
[2017-12-03 15:11] LABS: BASO # 0.01 K/mm3 (0.0-2.0); BASO % 0.1 % (0.0-3.0); EOS # 0.1 (0.0-0.7); EOS % 0.9 % (1.5-5.0); GRAN # 5.38 (1.4-6.5); HEMOGLOBIN 8.9 g/dL (12.0-16.0); LYMPH # 1.4 (1.2-3.4); LYMPH % 19.1 % (22.0-35.0); MEAN CELL VOLUME 84.9 fl (80.0-105.0); MEAN CORPUSCULAR HEMOGLOBIN 28.1 pg (25.0-35.0); MEAN CORPUSCULAR HGB CONC 33.1 g/dl (31.0-37.0); MEAN PLATELET VOLUME 9.2 fl (7.0-11.0); MONO # 0.5 (0.1-0.6); MONO % 6.9 % (1.0-6.0); RBC 3.17 10^6/uL (3.5-6.1); RED CELL DISTRIBUTION WIDTH 14.2 % (11.5-14.5); WHITE BLOOD COUNT 7.4 10^3/ul (4.5-11.0)
[2017-12-03] MEDS: Insulin Detemir 100 units/ml Vial (Levemir) SC SCH (21:54)
[2017-12-04] MEDS: Pantoprazole 40 mg EC Tab PO SCH (05:53)
[2017-12-04] MEDS: Magnesium Oxide 400 mg Tab UD PO SCH ×2 (09:29→16:59)
[2017-12-04] MEDS: Insulin Reg-LOW-Coverage SC SCH ×3 (09:30→16:52)
--- NOTE | 2017-12-04 11:49 | CP.PCM.PN ---
Subjective - Date & Time of Evaluation Date of Evaluation: 12/04/17 Time of Evaluation: 11:45 - Subjective Subjective: General Surgery Note for Dr Vega This 77F was seen and examined this AM at bedside. NO acute events overnight however yesterday pt had an isolated fever. SHe has no GI complaints. She is passing gas and moving her bowels, however she does complain that she feels as though she is developing a cold. Pt is ambulating w denies cp sob n/v f/c. Objective - Vital Signs/Intake and Output Vital Signs (last 24 hours): Temp Pulse Resp BP Pulse Ox 98.8 F 79 18 159/69 H 95 12/04/17 06:00 12/04/17 09:29 12/04/17 06:00 12/04/17 09:29 12/04/17 06:00 Intake and Output: 12/04/17 12/04/17 06:59 18:59 Intake Total 600 Balance 600 - Medications Medications: Current Medications Amlodipine Besylate (Norvasc) 5 mg PO DAILY [facility] Last Admin: 12/04/17 09:29 Dose: 5 mg Atorvastatin Calcium (Lipitor) 20 mg PO DIN [facility] Last Admin: 12/03/17 16:50 Dose: 20 mg Benzocaine/Menthol (Cepacol Sore Throat) 1 brenda MT Q1H PRN PRN Reason: Sore Throat Last Admin: 12/02/17 20:03 Dose: 1 brenda Gabapentin (Neurontin) 600 mg PO HS [facility] PRN Reason: Protocol Last Admin: 12/03/17 21:54 Dose: 600 mg Insulin Detemir (Levemir) 15 unit SC [facility] Last Admin: 12/03/17 21:54 Dose: 15 u Insulin Human Regular (Humulin R Low) 0 units SC [facility] PRN Reason: Protocol Last Admin: 12/04/17 09:30 Dose: Not Given Losartan Potassium (Cozaar) 100 mg PO DAILY [facility] Last Admin: 12/04/17 09:29 Dose: 100 mg Magnesium Oxide (Mag-Ox) 400 mg PO BID [facility] Last Admin: 12/04/17 09:29 Dose: 400 mg Metoprolol Tartrate (Lopressor) 50 mg PO BID [facility] Last Admin: 12/04/17 09:29 Dose: 50 mg Ondansetron HCl (Zofran Inj) 4 mg IVP Q4H PRN PRN Reason: Nausea/Vomiting Oxycodone/Acetaminophen (Percocet 5/325 Mg Tab) 1 tab PO Q4H PRN PRN Reason: Pain, moderate (4-7) Stop: 12/05/17 07:50 Pantoprazole Sodium (Protonix Ec Tab) 40 mg PO 0600 [facility] Last Admin: 12/04/17 05:53 Dose: 40 mg - Labs Labs: 12/03/17 15:02 12/03/17 07:00 PT 12.1 SECONDS (9.4-12.5) 11/30/17 21:55 INR 1.06 11/30/17 21:55 APTT 28.7 Seconds (25.1-36.5) 11/30/17 21:55 - Additional Findings Additional findings: - Constitutional Appears: Well, No Acute Distress - Head Exam Head Exam: ATRAUMATIC, NORMAL INSPECTION, NORMOCEPHALIC - Eye Exam Eye Exam: Normal appearance - Respiratory Exam Respiratory Exam: NORMAL BREATHING PATTERN. absent: Respiratory Distress - Cardiovascular Exam Cardiovascular Exam: REGULAR RHYTHM - GI/Abdominal Exam GI & Abdominal Exam: Soft. absent: Distended, Firm, Guarding, Rigid, Tenderness , Rebound Additional comments: [place] c/d/i - Neurological Exam Neurological Exam: Alert, Oriented x3 - Psychiatric Exam Psychiatric exam: Normal Affect, Normal Mood - Skin Skin Exam: Dry, Intact Assessment and Plan - Assessment and Plan (Free Text) Assessment: 77F POD#8 s/p laparoscopic hand assisted, R hemicolectomy w/ post-op lower gi bleed, resolved Plan: -Soft Regular diet -H/H stable, uptrending -PO meds -Encourage OOB/Ambulation/IS -Clear for transfer to TCU D/W Dr Gary Loredo PGY3
--- NOTE | 2017-12-04 14:48 | PN ---
DATE: 12/04/2017 SUBJECTIVE: The patient is lying in bed. She has not had any further rectal bleeding. She is tolerating solid food. PHYSICAL EXAMINATION: VITAL SIGNS: Reveal temperature of 98.8, blood pressure 159/69, heart rate 79. HEENT: Reveal sclerae to be white. Conjunctivae pale. NECK: Supple. CHEST: Lungs are clear. HEART: Reveals regular rate and rhythm. ABDOMEN: Soft, nontender. She has a healing fresh incision. EXTREMITIES: Show trace pedal edema. LABORATORY DATA: Reveal hemoglobin of 8.9, BUN 11, creatinine 1.1. IMPRESSION: 1. Status post lower gastrointestinal bleed, most likely secondary to bleeding from an anastomotic site from recent right hemicolectomy as the patient was on aspirin and Plavix for coronary artery disease in the presence of a drug-eluting stent, which was placed approximately 10 weeks ago. The patient's hemoglobin has remained stable over the last 72 hours. Her hemoglobin is at 8.9. The patient also has a history of diabetes mellitus, coronary artery disease, status post drug eluding stent. 2. Hypertension. RECOMMENDATIONS: 1. Follow serial hematocrits. 2. Continue postop care. The patient is awaiting transfer to [facility] rehab for deconditioning. Amor Chow MD
[2017-12-04 15:50] VITALS: RESP 20; TEMP 98.6; O2SAT 96
[2017-12-04 17:00] VITALS: BP 124/57; PULSE 67
--- NOTE | 2017-12-04 21:11 | PN ---
DATE: 12/04/2017 SUBJECTIVE: A 77-year-old white female, status post colon resection for colon cancer with linear metastatic disease to one lymph node and through the muscularis . The patient is status post operative anastomotic leak, which is resolved. Vital signs are stable. The patient is tolerating her diet well. She is doing some physical therapy, occupational therapy. She was transferred to [facility]. We will continue to follow her blood counts. She is stable at this point. Physical examination is unchanged. Kameron Mcintyre MD
--- NOTE | 2017-12-06 00:35 | DS ---
HISTORY OF PRESENT ILLNESS: The patient is a 77-year-old white female admitted to the hospital with GI bleed and was found to have colon cancer on coloscopy, had a hemicolectomy done by Dr. Vega. She did well postoperatively, however, developed anastomotic bleed postoperatively, which eventually resolved. The patient does have a history of CAD, was taken off her antiplatelet medications. She has stabilized, has no further bleeding. Her H and H are stable in the 9's. She will be transferred to TCU at this point and followed as an outpatient. FINAL DISCHARGE DIAGNOSES: Metastatic colon cancer, anastomotic lower gastrointestinal bleeding, anemia of blood loss, coronary artery disease, insulin-dependent diabetes mellitus, hypertension. Kameron Mcintyre MD
== END 2017-12-04 20:19 | DRG 920 ==
LOC: ED 21:17 → ERH 23:07 → ICU 12-01 02:00 → CCU 12-01 02:14 → 5RSO 12-02 12:29
PROVIDERS: ADMIT Internal Medicine; ATTEND Internal Medicine
PROC: 30233N1 Transfusion of Nonautologous Red Blood Cells into Peripheral Vein, Percutaneous Approach (ICD-10-PCS; 2017-11-30)
PROC: 6A550Z2 Pheresis of Platelets, Single (ICD-10-PCS; principal; 2017-12-01)
DX: K91.840 Postprocedural hemorrhage of a digestive system organ or structure following a digestive system procedure (principal); C18.9 Malignant neoplasm of colon, unspecified; D50.0 Iron deficiency anemia secondary to blood loss (chronic); D69.1 Qualitative platelet defects; E03.9 Hypothyroidism, unspecified; E11.22 Type 2 diabetes mellitus with diabetic chronic kidney disease; E11.51 Type 2 diabetes mellitus with diabetic peripheral angiopathy without gangrene; E78.5 Hyperlipidemia, unspecified; H35.30 Unspecified macular degeneration; I12.9 Hypertensive chronic kidney disease with stage 1 through stage 4 chronic kidney disease, or unspecified chronic kidney disease; I25.10 Atherosclerotic heart disease of native coronary artery without angina pectoris; K27.9 Peptic ulcer, site unspecified, unspecified as acute or chronic, without hemorrhage or perforation; K29.60 Other gastritis without bleeding; K29.80 Duodenitis without bleeding; N18.9 Chronic kidney disease, unspecified; E11.649 Type 2 diabetes mellitus with hypoglycemia without coma; I34.0 Nonrheumatic mitral (valve) insufficiency; Z79.4 Long term (current) use of insulin; Z79.82 Long term (current) use of aspirin; Z87.891 Personal history of nicotine dependence; Z90.49 Acquired absence of other specified parts of digestive tract; Z95.5 Presence of coronary angioplasty implant and graft; Z96.641 Presence of right artificial hip joint; R40.2412 Glasgow coma scale score 13-15, at arrival to emergency department

== ENCOUNTER 2017-12-04 20:19 | Inpatient (IN) | payer MEDICARE ==
[2017-12-04] MEDS ORDERED: Benzocaine/Menthol (Cepacol) Lozenge MT PRN (20:54)
[2017-12-04] MEDS ORDERED: Oxycodone/Acetaminophen 5/325 mg Tab PO PRN (20:56)
[2017-12-04] MEDS: Insulin Reg-LOW-Coverage SC SCH (21:48)
[2017-12-04] MEDS: Insulin Detemir 100 units/ml Vial (Levemir) SC SCH (22:26)
[2017-12-05] MEDS: Pantoprazole 40 mg EC Tab PO SCH (06:04)
[2017-12-05] MEDS: Insulin Reg-LOW-Coverage SC SCH ×4 (06:35→21:31)
[2017-12-05 08:25] LABS: HEMOGLOBIN 9.6 g/dL (12.0-16.0); MEAN CELL VOLUME 85.5 fl (80.0-105.0); MEAN CORPUSCULAR HEMOGLOBIN 27.3 pg (25.0-35.0); MEAN CORPUSCULAR HGB CONC 31.9 g/dl (31.0-37.0); MEAN PLATELET VOLUME 9.4 fl (7.0-11.0); RBC 3.52 10^6/uL (3.5-6.1); RED CELL DISTRIBUTION WIDTH 14.4 % (11.5-14.5); WHITE BLOOD COUNT 4.8 10^3/ul (4.5-11.0)
--- NOTE | 2017-12-05 08:33 | CP.PCM.PN ---
Subjective - Date & Time of Evaluation Date of Evaluation: 12/05/17 Time of Evaluation: 07:10 - Subjective Subjective: Pt seen and examined at bedside, no adverse events overnight. Patient tolerating diet with minimal pain, no nausea or vomiting, no BM for 2 days, passing gas Objective - Vital Signs/Intake and Output Vital Signs (last 24 hours): Temp Pulse Resp BP Pulse Ox 98.6 F 68 18 143/60 98 12/05/17 06:20 12/05/17 06:20 12/05/17 06:20 12/05/17 06:20 12/05/17 06:20 - Medications Medications: Current Medications Amlodipine Besylate (Norvasc) 5 mg PO DAILY [facility] Atorvastatin Calcium (Lipitor) 20 mg PO DIN [facility] Benzocaine/Menthol (Cepacol Sore Throat) 1 brenda MT Q2H PRN PRN Reason: Sore Throat Docusate Sodium (Colace) 100 mg PO BID [facility] Gabapentin (Neurontin) 600 mg PO HS [facility] PRN Reason: Protocol Last Admin: 12/04/17 22:26 Dose: 600 mg Insulin Detemir (Levemir) 15 unit SC HS [facility] Last Admin: 12/04/17 22:26 Dose: 15 units Insulin Human Regular (Humulin R Low) 0 units SC [facility] PRN Reason: Protocol Last Admin: 12/05/17 06:35 Dose: Not Given Losartan Potassium (Cozaar) 100 mg PO DAILY [facility] Magnesium Oxide (Mag-Ox) 400 mg PO BID [facility] Metoprolol Tartrate (Lopressor) 50 mg PO BID [facility] Ondansetron HCl (Zofran Inj) 4 mg IVP Q4H PRN PRN Reason: Nausea/Vomiting Oxycodone/Acetaminophen (Percocet 5/325 Mg Tab) 1 tab PO Q4H PRN PRN Reason: Pain, moderate (4-7) Stop: 12/07/17 20:57 Pantoprazole Sodium (Protonix Ec Tab) 40 mg PO 0600 [facility] Last Admin: 12/05/17 06:04 Dose: 40 mg - Labs Labs: 12/05/17 08:00 - Constitutional Appears: Well, Non-toxic, No Acute Distress - Head Exam Head Exam: ATRAUMATIC, NORMOCEPHALIC - Eye Exam Eye Exam: Normal appearance. absent: Conjunctival injection, Scleral icterus - ENT Exam ENT Exam: Mucous Membranes Moist, Normal Oropharynx - Respiratory Exam Respiratory Exam: NORMAL BREATHING PATTERN. absent: Accessory Muscle Use, Respiratory Distress - Cardiovascular Exam Cardiovascular Exam: RRR - GI/Abdominal Exam GI & Abdominal Exam: Soft. absent: Distended, Tenderness Additional comments: mildine incision well approximated with [place], no swelling, erythema, or drainage - Extremities Exam Extremities Exam: absent: Calf Tenderness, Pedal Edema, Tenderness - Neurological Exam Neurological Exam: Alert, Awake, Oriented x3 - Psychiatric Exam Psychiatric exam: Normal Affect, Normal Mood - Skin Skin Exam: Dry, Normal Color, Warm Assessment and Plan - Assessment and Plan (Free Text) Assessment: 77F POD#9 s/p laparoscopic right hemicolectomy with subsequent GI bleed, now resolved Plan: Continue current management Encourage work with PT and incentive spirometer Will remove [place] before patient is discharged Continue to trend CBC and BMP, replete electrolytes as needed Discussed with Dr. Gary Sprague, Pgy2
[2017-12-05] MEDS: Magnesium Oxide 400 mg Tab UD PO SCH ×2 (09:12→18:16)
[2017-12-05 09:17] LABS: CALCIUM 8.2 mg/dL (8.4-10.5)
--- NOTE | 2017-12-05 12:23 | HP ---
HISTORY OF PRESENT ILLNESS: A 77-year-old white female, transferred from [facility] TCU. The patient has history of CAD, status post stents. The patient has a history of GI bleed, who was found to have a colon carcinoma, a B2 lesion with one lymph node positive. The patient did have a post hemicolectomy and did have a post hemicolectomy anastomotic bleed. She has been stable since that point. There is no further bleeding. The patient has been taken off her antiplatelet medications. The patient will be discussed with GI and Cardiology about timing on restarting her on her antiplatelet medication. Vital signs are stable. She is doing well. She will do physical therapy and occupational therapy. She has had a bowel movement with no bleeding. Her H and H have been stable at 9.6. The patient will be followed carefully and continue therapy until she is able to be discharged home. Kameron Mcintyre MD
[2017-12-05] MEDS: Insulin Detemir 100 units/ml Vial (Levemir) SC SCH (21:31)
[2017-12-06] MEDS: Pantoprazole 40 mg EC Tab PO SCH (06:24)
[2017-12-06] MEDS: Insulin Reg-LOW-Coverage SC SCH ×4 (06:33→21:38)
--- NOTE | 2017-12-06 07:57 | CP.PCM.PN ---
Subjective - Date & Time of Evaluation Date of Evaluation: 12/06/17 Time of Evaluation: 07:15 - Subjective Subjective: Gene Joshi DO, PGY-1 Surgery Progress Note for Dr. Vega Patient was seen and examined at bedside this AM with surgery team. She reports feeling well this AM, is passing flatus, and has been having non-bloody, regular BM's. She has been ambulating OOB regularly. Objective - Vital Signs/Intake and Output Vital Signs (last 24 hours): Temp Pulse Resp BP Pulse Ox 98.9 F 70 18 146/63 94 L 12/05/17 16:00 12/05/17 18:15 12/05/17 16:00 12/05/17 18:15 12/05/17 16:00 - Medications Medications: Current Medications Amlodipine Besylate (Norvasc) 5 mg PO DAILY [facility] Last Admin: 12/05/17 09:12 Dose: 5 mg Atorvastatin Calcium (Lipitor) 20 mg PO DIN [facility] Last Admin: 12/05/17 18:14 Dose: 20 mg Benzocaine/Menthol (Cepacol Sore Throat) 1 brenda MT Q2H PRN PRN Reason: Sore Throat Docusate Sodium (Colace) 100 mg PO BID [facility] Last Admin: 12/05/17 18:12 Dose: Not Given Gabapentin (Neurontin) 600 mg PO HS [facility] PRN Reason: Protocol Last Admin: 12/05/17 21:31 Dose: 600 mg Insulin Detemir (Levemir) 15 unit SC HS [facility] Last Admin: 12/05/17 21:31 Dose: 15 units Insulin Human Regular (Humulin R Low) 0 units SC [facility] PRN Reason: Protocol Last Admin: 12/06/17 06:33 Dose: Not Given Losartan Potassium (Cozaar) 100 mg PO DAILY [facility] Last Admin: 12/05/17 09:11 Dose: 100 mg Magnesium Oxide (Mag-Ox) 400 mg PO BID [facility] Last Admin: 12/05/17 18:16 Dose: 400 mg Metoprolol Tartrate (Lopressor) 50 mg PO BID [facility] Last Admin: 12/05/17 18:15 Dose: 50 mg Ondansetron HCl (Zofran Inj) 4 mg IVP Q4H PRN PRN Reason: Nausea/Vomiting Last Admin: 12/05/17 14:49 Dose: 4 mg Oxycodone/Acetaminophen (Percocet 5/325 Mg Tab) 1 tab PO Q4H PRN PRN Reason: Pain, moderate (4-7) Stop: 12/07/17 20:57 Pantoprazole Sodium (Protonix Ec Tab) 40 mg PO 0600 [facility] Last Admin: 12/06/17 06:24 Dose: 40 mg Sennosides (Senokot Tab) 8.6 mg PO DAILY [facility] Last Admin: 12/05/17 14:46 Dose: Not Given - Labs Labs: 12/05/17 08:00 12/06/17 06:30 - Constitutional Appears: Non-toxic, No Acute Distress - Head Exam Head Exam: ATRAUMATIC, NORMAL INSPECTION - Eye Exam Eye Exam: Normal appearance - ENT Exam ENT Exam: Mucous Membranes Moist - Neck Exam Neck Exam: Full ROM, Normal Inspection - Respiratory Exam Respiratory Exam: absent: Accessory Muscle Use, Respiratory Distress - Cardiovascular Exam Cardiovascular Exam: +S1, +S2 - GI/Abdominal Exam GI & Abdominal Exam: Soft. absent: Distended, Guarding, Tenderness, Rebound - Extremities Exam Extremities Exam: Full ROM, Normal Inspection - Neurological Exam Neurological Exam: Alert, Awake, Normal Gait, Oriented x3 - Psychiatric Exam Psychiatric exam: Normal Affect, Normal Mood - Skin Skin Exam: Dry, Intact, Normal Color, Warm Assessment and Plan - Assessment and Plan (Free Text) Assessment: 77F POD#10 s/p laparoscopic right hemicolectomy with subsequent GI bleed, now resolved, and in TCU for further observation and management Plan: -Continue to work with PT/OT -Will remove every other staple today, POD 10 -Continue to monitor CBC, BMP, replete electrolytes as needed Case and plan d/w Dr. Gary Joshi, DO IM Resident PGY-1
[2017-12-06] MEDS: Magnesium Oxide 400 mg Tab UD PO SCH ×2 (09:45→19:08)
--- NOTE | 2017-12-06 12:26 | PN ---
DATE: 12/06/2017 SUBJECTIVE: The patient is seen sitting up in a bed. She denies any rectal bleeding. She had a nonbloody bowel movement yesterday. She denies any abdominal pain, nausea, vomiting, chest pain or shortness of breath. PHYSICAL EXAMINATION: VITAL SIGNS: Reveal temperature of 98.9, blood pressure 126/58, heart rate of 98. HEENT: Reveals sclerae to be white. Conjunctivae pink. NECK: Supple. CHEST: Lungs are clear. HEART: Reveals a regular rate and rhythm. ABDOMEN: Soft and nontender. No mass. She has a healing incision in her lower to mid abdomen. EXTREMITIES: Show 1+ pedal edema. LABORATORY DATA: Reveal from yesterday, hemoglobin 9.6. This has been stable over the last 72 hours. IMPRESSION: A 77-year-old female with coronary artery disease, status post drug-eluting stent placed approximately 2 months ago, status post recent right hemicolectomy for an obstructing proximal transverse colon cancer with lymph nodes and omental metastases, who developed a significant bleed within a week of her surgery after being placed on aspirin and Plavix for drug eluding stent. The patient received several units of packed red blood cells. She has not had any obvious bleeding in the last 3 days. Her count is remained stable. RECOMMENDATIONS: 1. Continue postop care. 2. I would try and hold off on aspirin and Plavix for at least another 48-72 hours. Amor Chow MD
--- NOTE | 2017-12-06 13:28 | PN ---
DATE: 12/06/2017 SUBJECTIVE: A 77-year-old white female, status post colectomy, status post anastomotic bleed, history of CAD, status post stenting, COPD, hypertension. The patient is stable in TCU. Doing physical therapy and occupational therapy. The patient is somewhat upset about the results of her biopsy showing stage III-IV colon cancer. She does have several omental metastases and a lymph node positive. The patient will have a Port-A-Cath put in for chemotherapy before going back on her Brilinta, consultation with Dr. Mansoor Dailey for that service. PHYSICAL EXAMINATION: VITAL SIGNS: Stable. CHEST: Clear to auscultation. There is no further bleeding. ABDOMEN: Soft. Kameron Mcintyre MD
[2017-12-06] MEDS: Nystatin-Triamcinolone Cream(30 gm) TOP SCH (17:36)
[2017-12-06] MEDS: Insulin Detemir 100 units/ml Vial (Levemir) SC SCH (21:39)
--- NOTE | 2017-12-07 01:02 | CON ---
DATE: 12/06/2017 HISTORY OF PRESENT ILLNESS: Ms. Law is a 77-year-old female, admitted to the hospital with right-sided colon mass. She underwent a right hemicolectomy, omentum, metastatic lesion resection. She developed gastrointestinal bleeding when she was started with aspirin and Plavix. Aspirin and Plavix are on hold now. No rectal bleeding. 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 She also received several units of blood transfusion during the hospitalization for severe iron deficiency anemia. PAST MEDICAL HISTORY: Hypertension, coronary artery disease, recent coronary stent placement, diabetes mellitus type 2, history of recurrent fall. PAST SURGICAL HISTORY: Cardiac catheterization, coronary stent placement, hip replacement in 2017. ALLERGIES: LISINOPRIL. REVIEW OF SYSTEMS: As per HPI. Rest of 12-point review of systems reviewed and negative. MEDICATIONS: Norvasc 5 mg daily, Lipitor 20 mg daily, Colace 100 mg p.o. b.i.d., gabapentin 600 mg p.o. at bedtime, insulin, losartan 100 mg daily, metoprolol 50 mg p.o. b.i.d., Zofran 4 mg IV every 4 hours p.r.n., Percocet, Protonix 40 mg daily. PHYSICAL EXAMINATION: GENERAL: Comfortable in bed, in no acute distress. VITAL SIGNS: Temperature 98.1, heart rate is 64 per minute, blood pressure 153/60, respiratory rate 14 per minute, and oxygen saturation is 97% on room air. HEENT: Pallor positive. NECK: No lymphadenopathy. CHEST: Air entry present, equal and bilateral. No added sounds. CARDIOVASCULAR: S1, S2, normal. No murmur. No gallop. ABDOMEN: Soft and nontender. No hepatosplenomegaly. EXTREMITIES: No edema. ASSESSMENT: 1. Colon cancer stage IV. 2. Hypertension. 3. Diabetic mellitus type 2. 4. Severe iron deficiency anemia. 5. Coronary artery disease. PLAN: I discussed her final Pathology results with the patient. She is stage IV cancer because of omentum met. We will schedule the CT PET scan upon discharge from the hospital for staging. She will need chemotherapy for metastatic cancer. Aspirin and Plavix are on hold now. We will consider port placement now before restarting aspirin and Plavix. Consultation Dr. Mansoor Dailey requested. Discussed with Dr. Mcintyre. Iron deficiency anemia. She received several units of blood transfusion. She received IV iron during the admission. Now, I will give 200 mg of IV iron tomorrow. She is participating in Physical Therapy. Pain markedly improved. Cardiology following. Thank you, Dr. Mcintyre for allowing us to participate in Ms. Renteria's care. Marysol Esparza MD
[2017-12-07] MEDS: Pantoprazole 40 mg EC Tab PO SCH (05:51)
[2017-12-07] MEDS: Insulin Reg-LOW-Coverage SC SCH ×4 (06:40→21:16)
[2017-12-07 07:22] LABS: BLOOD UREA NITROGEN 13 mg/dL (7-21); CALCIUM 8.3 mg/dL (8.4-10.5); GFR NON-AFRICAN AMERICAN 54
--- NOTE | 2017-12-07 07:54 | CP.PCM.PN ---
Subjective - Date & Time of Evaluation Date of Evaluation: 12/07/17 Time of Evaluation: 07:00 - Subjective Subjective: Gene Joshi DO, PGY-1 Surgery Progress Note for Dr. Vega Patient was seen and examined at bedside this AM with surgery team. Patient reports feeling well and had no acute events overnight. She is continuing to work with PT. Objective - Vital Signs/Intake and Output Vital Signs (last 24 hours): Temp Pulse Resp BP Pulse Ox 98.1 F 95 H 14 155/60 H 95 12/06/17 10:00 12/06/17 19:07 12/06/17 10:00 12/06/17 19:07 12/06/17 17:14 - Medications Medications: Current Medications Amlodipine Besylate (Norvasc) 5 mg PO DAILY [facility] Last Admin: 12/06/17 09:46 Dose: 5 mg Atorvastatin Calcium (Lipitor) 20 mg PO DIN [facility] Last Admin: 12/06/17 17:35 Dose: 20 mg Benzocaine/Menthol (Cepacol Sore Throat) 1 brenda MT Q2H PRN PRN Reason: Sore Throat Docusate Sodium (Colace) 100 mg PO BID [facility] Last Admin: 12/06/17 17:35 Dose: 100 mg Gabapentin (Neurontin) 600 mg PO HS [facility] PRN Reason: Protocol Last Admin: 12/06/17 21:39 Dose: 600 mg Insulin Detemir (Levemir) 15 unit SC HS [facility] Last Admin: 12/06/17 21:39 Dose: 15 units Insulin Human Regular (Humulin R Low) 0 units SC ACHS [facility] PRN Reason: Protocol Last Admin: 12/07/17 06:40 Dose: 1 unit Losartan Potassium (Cozaar) 100 mg PO DAILY [facility] Last Admin: 12/06/17 09:45 Dose: 100 mg Magnesium Oxide (Mag-Ox) 400 mg PO BID [facility] Last Admin: 12/06/17 19:08 Dose: 400 mg Metoprolol Tartrate (Lopressor) 50 mg PO BID [facility] Last Admin: 12/06/17 19:07 Dose: 50 mg Nystatin/Triamcinolone Acetonide (Nystatin/Triamcinolone Cream) 0 ea TOP BID [facility] Last Admin: 12/06/17 17:36 Dose: 1 appl Ondansetron HCl (Zofran Inj) 4 mg IVP Q4H PRN PRN Reason: Nausea/Vomiting Last Admin: 12/05/17 14:49 Dose: 4 mg Oxycodone/Acetaminophen (Percocet 5/325 Mg Tab) 1 tab PO Q4H PRN PRN Reason: Pain, moderate (4-7) Stop: 12/07/17 20:57 Pantoprazole Sodium (Protonix Ec Tab) 40 mg PO 0600 [facility] Last Admin: 12/07/17 05:51 Dose: 40 mg Sennosides (Senokot Tab) 8.6 mg PO DAILY [facility] Last Admin: 12/06/17 09:46 Dose: 8.6 mg - Labs Labs: 12/05/17 08:00 12/07/17 06:00 - Constitutional Appears: Non-toxic, No Acute Distress - Head Exam Head Exam: ATRAUMATIC, NORMAL INSPECTION - Eye Exam Eye Exam: Normal appearance - ENT Exam ENT Exam: Mucous Membranes Moist - Neck Exam Neck Exam: Full ROM, Normal Inspection - Respiratory Exam Respiratory Exam: absent: Accessory Muscle Use, Respiratory Distress - Cardiovascular Exam Cardiovascular Exam: +S1, +S2 - GI/Abdominal Exam GI & Abdominal Exam: Soft. absent: Distended, Guarding, Tenderness, Rebound - Extremities Exam Extremities Exam: Normal Inspection - Neurological Exam Neurological Exam: Alert, Awake, Normal Gait, Oriented x3 - Psychiatric Exam Psychiatric exam: Normal Affect, Normal Mood - Skin Skin Exam: Dry, Intact, Normal Color, Warm Assessment and Plan - Assessment and Plan (Free Text) Assessment: 77F POD#11 s/p laparoscopic right hemicolectomy with subsequent GI bleed, now resolved, and in TCU for further observation and management. Plan: -Per PT/OT notes she is ambulating without assistance and performing ADLs independently -Half of [place] removed, will remove remaining tomorrow -Continue to monitor CBC, BMP, replete electrolytes as needed -Patient cleared from surgical standpoint Case and plan d/w Dr. Gary Joshi, DO IM Resident PGY-1
--- NOTE | 2017-12-07 09:53 | PN ---
DATE: 12/07/2017 A 77-year-old white female status post hemicolectomy for colon cancer stage III/IV. The patient is also post anastomotic bleed and history of CAD, status post stents. The patient is doing physical therapy and occupational therapy. Her blood counts have been stable at 9.6. She is afebrile. Vital signs are stable. Blood pressure down to 155/60. We are awaiting a Port-A-Cath insertion by Dr. Mansoor Dailey and then, the patient will be discharged home in approximately 24 hours and restarted on Plavix and aspirin. Kameron Mcintyre MD
[2017-12-07] MEDS: Nystatin-Triamcinolone Cream(30 gm) TOP SCH ×2 (10:27→17:14)
[2017-12-07] MEDS: Magnesium Oxide 400 mg Tab UD PO SCH ×2 (10:27→17:14)
[2017-12-07 16:41] VITALS: RESP 18; TEMP 98.4; O2SAT 94
[2017-12-07] MEDS: Insulin Detemir 100 units/ml Vial (Levemir) SC SCH (21:17)
[2017-12-08] MEDS: Pantoprazole 40 mg EC Tab PO SCH (05:22)
[2017-12-08] MEDS: Insulin Reg-LOW-Coverage SC SCH ×2 (06:33→11:57)
[2017-12-08] MEDS: Magnesium Oxide 400 mg Tab UD PO SCH (09:47)
[2017-12-08] MEDS: Nystatin-Triamcinolone Cream(30 gm) TOP SCH (09:49)
[2017-12-08 09:51] VITALS: BP 152/66; PULSE 80
--- NOTE | 2017-12-08 09:53 | CP.PCM.PN ---
Subjective - Date & Time of Evaluation Date of Evaluation: 12/08/17 Time of Evaluation: 09:15 - Subjective Subjective: Gene Joshi DO, PGY-1 Surgery Progress Note for Dr. Vega Patient was seen and examined at bedside with surgery team. She states she feels ready to go home. She also states that she is getting the port placed today by Dr. Dailey per Dr. Mcintyre's recommendation. She will be getting clear liquid diet for lunch and then the port placed this afternoon. Objective - Vital Signs/Intake and Output Vital Signs (last 24 hours): Temp Pulse Resp BP Pulse Ox 98.4 F 80 18 152/66 H 94 L 12/07/17 16:30 12/08/17 09:47 12/07/17 16:30 12/08/17 09:47 12/07/17 16:30 - Medications Medications: Current Medications Amlodipine Besylate (Norvasc) 5 mg PO DAILY [facility] Last Admin: 12/08/17 09:47 Dose: 5 mg Atorvastatin Calcium (Lipitor) 20 mg PO DIN [facility] Last Admin: 12/07/17 17:13 Dose: 20 mg Benzocaine/Menthol (Cepacol Sore Throat) 1 brenda MT Q2H PRN PRN Reason: Sore Throat Docusate Sodium (Colace) 100 mg PO BID [facility] Last Admin: 12/08/17 09:45 Dose: Not Given Gabapentin (Neurontin) 600 mg PO HS [facility] PRN Reason: Protocol Last Admin: 12/07/17 21:19 Dose: 600 mg Insulin Detemir (Levemir) 15 unit SC HS [facility] Last Admin: 12/07/17 21:17 Dose: 15 applic Insulin Human Regular (Humulin R Low) 0 units SC [facility] PRN Reason: Protocol Last Admin: 12/08/17 06:33 Dose: 2 unit Losartan Potassium (Cozaar) 100 mg PO DAILY [facility] Last Admin: 12/08/17 09:46 Dose: 100 mg Magnesium Oxide (Mag-Ox) 400 mg PO BID [facility] Last Admin: 12/08/17 09:47 Dose: 400 mg Metoprolol Tartrate (Lopressor) 50 mg PO BID [facility] Last Admin: 12/08/17 09:46 Dose: 50 mg Nystatin/Triamcinolone Acetonide (Nystatin/Triamcinolone Cream) 0 ea TOP BID [facility] Last Admin: 12/08/17 09:49 Dose: 1 appl Ondansetron HCl (Zofran Inj) 4 mg IVP Q4H PRN PRN Reason: Nausea/Vomiting Last Admin: 12/05/17 14:49 Dose: 4 mg Pantoprazole Sodium (Protonix Ec Tab) 40 mg PO 0600 [facility] Last Admin: 12/08/17 05:22 Dose: 40 mg Sennosides (Senokot Tab) 8.6 mg PO DAILY [facility] Last Admin: 12/08/17 09:49 Dose: Not Given - Labs Labs: 12/05/17 08:00 12/07/17 06:00 - Constitutional Appears: Non-toxic, No Acute Distress - Head Exam Head Exam: ATRAUMATIC, NORMAL INSPECTION - Eye Exam Eye Exam: Normal appearance - ENT Exam ENT Exam: Mucous Membranes Moist - Neck Exam Neck Exam: Full ROM, Normal Inspection - Respiratory Exam Respiratory Exam: NORMAL BREATHING PATTERN. absent: Accessory Muscle Use, Respiratory Distress - Cardiovascular Exam Cardiovascular Exam: +S1, +S2 - GI/Abdominal Exam GI & Abdominal Exam: Soft. absent: Firm, Guarding, Tenderness, Rebound - Extremities Exam Extremities Exam: Full ROM, Normal Inspection - Neurological Exam Neurological Exam: Alert, Awake, Oriented x3 - Psychiatric Exam Psychiatric exam: Normal Affect, Normal Mood - Skin Skin Exam: Dry, Intact, Normal Color, Warm Assessment and Plan - Assessment and Plan (Free Text) Assessment: 77F POD#12 s/p laparoscopic right hemicolectomy with subsequent GI bleed, now resolved, and in TCU for further observation and management. Plan: -Remove remaining [place] today -Is having port placed by Dr. Dailey this afternoon -Continue to monitor CBC, BMP, replete electrolytes as needed -Patient cleared from surgical standpoint Case and plan d/w Dr. Gary Joshi, DO IM Resident PGY-1
--- NOTE | 2017-12-09 00:53 | DS ---
DISCHARGE DIAGNOSES: 1. Colon cancer, status post resection. 2. Severe iron-deficiency anemia. 3. Rectal bleed. HOSPITAL COURSE: The patient underwent right hemicolectomy, omental met resection for colon cancer. Pathology positive for metastatic adenocarcinoma. She developed rectal bleeding postop. She has recent angioplasty done. Aspirin and Plavix was on hold. She underwent physical therapy, currently ambulating without any discomfort. No abdominal pain. PHYSICAL EXAMINATION: GENERAL: Comfortable in bed, no acute distress. VITAL SIGNS: Temperature 98.4, heart rate 80 per minute, blood pressure 150/66, oxygen saturation 94% on room air. HEENT: PERRLA positive. NECK: No lymphadenopathy. CHEST: Air entry present and equal bilaterally. No added sound. CARDIOVASCULAR: S1, S2 normal. No murmur, no gallop. ABDOMEN: Soft, nontender. No hepatosplenomegaly. EXTREMITIES: No edema. CONDITION ON DISCHARGE: Stable. DISPOSITION: Discharged home. DISCHARGE MEDICATIONS: Norvasc 5 mg daily, Lipitor 20 mg daily, Colace p.r.n., Neurontin 600 mg p.o. at bedtime, insulin ____ mg subcutaneous at bedtime, Cozaar 100 mg daily, Protonix 40 mg daily. Aspirin and Plavix on hold. FOLLOWUP: With humanities instructor in 1 week, follow up with Oncology, Dr. Esparza. Follow up with Surgery, Dr. Vega. Discharge instructions given to the patient. She will have port placement upon discharge from the hospital for nutritional which will remain 4-6 weeks after surgery when she is stable. DIET: As tolerated. Marysol Esparza MD
== END 2017-12-08 14:16 | disposition home or self-care (01) | DRG 375 ==
LOC: TRCU 20:19
PROVIDERS: ADMIT Internal Medicine; ATTEND Internal Medicine
PROC: F07Z9ZZ Gait Training/Functional Ambulation Treatment (ICD-10-PCS; principal; 2017-12-05)
PROC: F08Z4ZZ Home Management Treatment (ICD-10-PCS; 2017-12-05)
DX: C18.9 Malignant neoplasm of colon, unspecified (principal); C78.6 Secondary malignant neoplasm of retroperitoneum and peritoneum; D50.9 Iron deficiency anemia, unspecified; I25.10 Atherosclerotic heart disease of native coronary artery without angina pectoris; I10 Essential (primary) hypertension; J44.9 Chronic obstructive pulmonary disease, unspecified; E11.9 Type 2 diabetes mellitus without complications; Z95.5 Presence of coronary angioplasty implant and graft; Z85.038 Personal history of other malignant neoplasm of large intestine

== ENCOUNTER 2017-12-08 14:22 | Day surgery (SDC) | payer MEDICARE ==
[2017-12-07 12:02] VITALS: BMI 29.0
[2017-12-08] MEDS ORDERED: Lidocaine PF 2% (5 ml) Inj (For Cardiac Arrhy) ONE (16:30)
[2017-12-08] MEDS ORDERED: Midazolam 2 MG/2 ML VIAL ONE ×2 (16:42→16:49)
[2017-12-08] MEDS ORDERED: Sodium Chloride 0.45% 1,000 ML IV SCH (17:15)
[2017-12-08] MEDS ORDERED: Oxycodone/Acetaminophen 5/325 mg Tab PO PRN (17:15)
--- NOTE | 2017-12-08 20:04 | VASCULAR ---
PROCEDURE: Ultrasound and fluoroscopic right internal jugular venous access port. CLINICAL HISTORY: Colon carcinoma.Venous port for chemotherapy. PHYSICIAN(S): Mansoor Dailey M.D. TECHNIQUE: The relative risks and indications of the procedure were explained to the patient and consent obtained. The patient was placed supine on the arteriogram table and the right neck and chest prepped and draped in the usual sterile fashion. Conscious sedation monitoring was provided throughout the procedure by a nurse. Antibiotics were given prior to the procedure. Under direct ultrasound guidance, the right internal jugular vein was punctured with a micro-puncture set. A 0.035 angled Glidewire was advanced into the IVC. A 4 cm incision was made below the right clavicle and the pocket blunted dissected. A 8 [place] single-lumen catheter, 21 cm long, was advanced to the SVC/RA junction. The catheter was trimmed and attached to the port. The port aspirates and injects easily. The port was placed in the pocket and closed in 2 layers. the patient tolerated the procedure well. IMPRESSION: Ultrasound and fluoroscopically placed right internal jugular venous access port.
== END 2017-12-08 19:00 | disposition home or self-care (01) ==
LOC: SDS 14:22
PROVIDERS: ATTEND Radiology Vascular & Interventional Radiology
DX: C18.9 Malignant neoplasm of colon, unspecified (principal); I10 Essential (primary) hypertension
CPT/HCPCS: 36561; 76937; 77001; 99152; 99153; C1769; C1788; J0690; J1644; J2250; J2405; J3010; J7030

== ENCOUNTER 2018-01-28 11:43 | Emergency (ER) | payer MEDICARE ==
[2018-01-28 11:47] VITALS: RESP 18; TEMP 97.6
[2018-01-28 11:48] VITALS: BMI 29.8
[2018-01-28] MEDS ORDERED: Lidocaine 2% Inj (20ml) SC STA (12:10)
[2018-01-28] MEDS ORDERED: Oxymetazoline 0.05% Nasal Spray (30 ml) NS STA (12:10)
[2018-01-28] MEDS ORDERED: Labetalol 5 mg/ml Inj 20ML IV STA (12:13)
--- NOTE | 2018-01-28 12:16 | ED PDOC ---
Arrival/HPI - General Chief Complaint: ENT Problem Time Seen by Provider: 01/28/18 11:53 Historian: Patient - History of Present Illness Narrative History of Present Illness (Text): 01/28/18 12:11 A 77 year old female, whose past medical history includes hypertension, diabetes, chemotherapy treatment for colon CA, presents to the emergency department with a complaint of an episode of epistaxis since 9 PM yesterday. The patient notes that she called her physician for referred her to an ENT physician, but was unable to get an appointment with them, which is why she comes to the emergency department for further evaluation. The patient notes that she has experienced these symptoms in the past. The patient denies fevers, chills, headache, dizziness, chest pain, shortness of breath, dyspnea on exertion, cough, abdominal pain, nausea, vomiting, diarrhea, back pain, neck pain, urinary/bowel changes, or any other complaint. Kst Operator: Dr. Salazar Time/Duration: Other (Last night (9pm)) Symptom Onset: Sudden Symptom Course: Unchanged Activities at Onset: Rest, Light Context: Sitting, Home Past Medical History - Provider Review Nursing Documentation Reviewed: Yes - Infectious Disease Hx of Infectious Diseases: None - Reproductive Menopause: Yes - Cardiac Hx Cardiac Disorders: Yes Hx Hypertension: Yes - Pulmonary Hx Respiratory Disorders: No - Neurological Hx Neurological Disorder: No - HEENT Hx HEENT Disorder: Yes (macular degeneration) Hx Cataracts: Yes (BL cataract; Left sxg.) - Renal Hx Renal Disorder: No - Endocrine/Metabolic Hx Diabetes Mellitus Type 2: Yes Hx Hypothyroidism: Yes - Hematological/Oncological Hx Blood Disorders: Yes Hx Blood Transfusions: Yes - Integumentary Hx Dermatological Disorder: No Other/Comment: ecchymosis to upper extremeties - Musculoskeletal/Rheumatological Hx Falls: Yes (past) - Gastrointestinal Hx Gastrointestinal Disorders: Yes (dx with colon ca/cholelap 11/26/17) - Genitourinary/Gynecological Hx Genitourinary Disorders: No - Psychiatric Hx Psychophysiologic Disorder: No Hx Substance Use: No - Surgical History Hx Cardiac Catheterization: Yes (2 stent september,) Hx Coronary Stent: Yes Other/Comment: Hip replacement (2016) - Anesthesia Hx Anesthesia Reactions: No Hx Malignant Hyperthermia: No - Suicidal Assessment Feels Threatened In Home Enviroment: No Family/Social History - Physician Review Nursing Documentation Reviewed: Yes Family/Social History: No Known Family HX Smoking Status: Former Smoker Hx Alcohol Use: Yes Hx Substance Use: No Allergies/Home Meds Allergies/Adverse Reactions: Allergies lisinopril Allergy (Severe, Verified 11/30/17 21:32) ANAPHYLAXIS THROAT CLOSING Home Medications: Home Meds Medication Instructions Recorded Confirmed Benzocaine/Menthol [Cepacol Sore 1 each MM Q2H PRN 12/08/17 12/08/17 Throat Lozenge] Nystatin/Triamcinolone [Mycolog 1 appl TP 12/08/17 Cream] RX: Atorvastatin [Lipitor] 20 mg PO DIN 12/08/17 12/08/17 Sennosides/Docusate Sodium [Colace 1 each PO BID 12/08/17 12/08/17 2-in-1 Tablet] oxyCODONE/Acetaminophen [Percocet 1 ea PO Q4H PRN 12/08/17 12/08/17 5/325 mg Tab] Review of Systems - Physician Review All systems were reviewed & negative as marked: Yes - Review of Systems Constitutional: absent: Fevers ENT: Epistaxis Respiratory: absent: SOB, Cough Cardiovascular: absent: Chest Pain, D[place]GLASS Gastrointestinal: absent: Abdominal Pain, Stool Changes, Diarrhea, Nausea, Vomiting Genitourinary Female: absent: Urine Output Changes Musculoskeletal: absent: Back Pain, Neck Pain Neurological: absent: Headache, Dizziness Physical Exam Vital Signs Reviewed: Yes Vital Signs Temp Pulse Resp BP Pulse Ox 01/28/18 11:44 97.6 F 92 H 18 198/81 H 100 Temperature: Afebrile Blood Pressure: Hypertensive Pulse: Regular Respiratory Rate: Normal Appearance: Positive for: Well-Appearing, Non-Toxic, Comfortable Pain Distress: None Mental Status: Positive for: Alert and Oriented X 3 - Systems Exam Head: Present: Atraumatic, Normocephalic Pupils: Present: PERRL Conjunctiva: Present: Normal Mouth: Present: Moist Mucous Membranes Nose (Internal): Present: Other. No: No Active Bleeding (Bright red blood in left nare. ), Septal Hematoma Neck: Present: Normal Range of Motion Respiratory/Chest: Present: Clear to Auscultation, Good Air Exchange. No: Respiratory Distress, Accessory Muscle Use Cardiovascular: Present: Regular Rate and Rhythm, Normal S1, S2. No: Murmurs Abdomen: No: Tenderness, Distention, Peritoneal Signs Back: Present: Normal Inspection Upper Extremity: Present: Normal Inspection. No: Cyanosis, Edema Lower Extremity: Present: Normal Inspection. No: Edema Neurological: Present: GCS=15, CN II-XII Intact, Speech Normal Skin: Present: Warm, Dry, Normal Color. No: Rashes Psychiatric: Present: Alert, Oriented x 3, Normal Insight, Normal Concentration Medical Decision Making ED Course and Treatment: 01/28/18 12:17 Impression: A 77 year old female presents to the with a complaint of an episode of epistaxis since 9 PM yesterday. Differential Diagnosis included but are not limited to: Epistaxis Plan: -- Labs -- Trandate, Lidocaine 2%, Afrin -- Reassess and disposition Prior Visits: Notes and results from previous visits were reviewed. Progress Notes: 01/28/18 12:36 Used Afrin spray and Lidocaine 2% with epi onto a cotton ball and placed in left nare. 01/28/18 13:54 Rhinorocket placement Patient received a 7.5 nasal rhino packing introduced to the left nare by me. No complications. Bleeding controlled 01/28/18 16:36 Patient some bleeding that occurred after placement of rhinorocket. I removed the packing and there was mild bleeding. I then cauterized the nare with silver nitrate which controlled the plane. I observed patient for an hour and no longer was there any bleeding. Patient stood up and walked in the ED without any dizziness or lightheadedness. Labs are stable from previous hgb. Blood pressure control. Patient will make sure to follow up with ENT on Wednesday. She will return to the ED if symptoms worsen or any other concern. - Scribe Statement The provider has reviewed the documentation as recorded by the Scribe Sully Arreola Provider Scribe Attestation: All medical record entries made by the Scribe were at my direction and personally dictated by me. I have reviewed the chart and agree that the record accurately reflects my personal performance of the history, physical exam, medical decision making, and the department course for this patient. I have also personally directed, reviewed, and agree with the discharge instructions and disposition. Disposition/Present on Arrival - Present on Arrival Any Indicators Present on Arrival: No History of DVT/PE: No History of Uncontrolled Diabetes: No Urinary Catheter: No History of Decub. Ulcer: No History Surgical Site Infection Following: None - Disposition Have Diagnosis and Disposition been Completed?: Yes Diagnosis: Epistaxis Disposition: HOME/ ROUTINE Disposition Time: 13:54 Patient Plan: Discharge Patient Problems: Current Active Problems Problem Status Onset Epistaxis Acute Condition: IMPROVED Discharge Instructions (ExitCare): Nosebleeds (DC) Additional Instructions: LILIANA SOMMERS, thank you for letting us take care of you today. Your provider was Alvaro Srinivasan DO and you were treated for Nose Bleed. The emergency medical care you received today was directed at your acute symptoms. If you were prescribed any medication, please fill it and take as directed. It may take axel ral days for your symptoms to resolve. Return to the Emergency Department if your symptoms worsen, do not improve, or if you have any other problems. Please contact your doctor or call one of the physicians/clinics you have been referred to that are listed on the Patient Visit Information form that is included in your discharge packet. Bring any paperwork you were given at discharge with you along with any medications you are taking to your follow up visit. Our treatment cannot replace ongoing medical care by a primary care provider outside of the emergency department. Thank you for allowing the [facility] team to be part of your care today. If you had an X-Ray or CT scan: A Radiologist will review the ED reading if any change in treatment is needed we will contact you. If you had a blood, urine, or wound culture: It will take several days for the results, if any change in treatment is needed we will contact you. If you had an STI test: It will take 48 hours for the results. Please call after 1 week if you have not heard back. Prescriptions: Amoxicillin/Clavulanate [Augmentin 875 MG-125 MG] 1 tab PO BID #14 tab Referrals: Kameron Mcintyre MD [Primary Care Provider] - Follow up with primary Barrett Reyes DO [Staff Provider] - Follow up with primary Forms: [employer] (K[place]akh)
[2018-01-28] MEDS ORDERED: Lidocaine 1%/Epinephrine 1:100000 30 ml vial IJ ONE (12:20)
[2018-01-28] MEDS ORDERED: Phenylephrine 0.5% Nasal Spray (15 ml) ONE (12:21)
[2018-01-28] MEDS ORDERED: Lidocaine PF 2% (5 ml) Inj (For Cardiac Arrhy) ONE (12:21)
[2018-01-28 12:57] LABS: CALCIUM 9.4 mg/dL (8.4-10.5)
[2018-01-28 13:01] LABS: HEMOGLOBIN 9.2 g/dL (12.0-16.0); MEAN CELL VOLUME 88.6 fl (80.0-105.0); MEAN CORPUSCULAR HEMOGLOBIN 29.9 pg (25.0-35.0); MEAN CORPUSCULAR HGB CONC 33.7 g/dl (31.0-37.0); RBC 3.08 10^6/uL (3.5-6.1); RED CELL DISTRIBUTION WIDTH 16.4 % (11.5-14.5); WHITE BLOOD COUNT 4.7 10^3/uL (4.5-11.0)
[2018-01-28 13:06] LABS: INR 0.97; PARTIAL THROMBOPLASTIN TIME 28.5 Seconds (25.1-36.5); PROTHROMBIN TIME 11.2 SECONDS (9.4-12.5)
[2018-01-28] MEDS ORDERED: Silver Nitrate Topical - Stick TOP ONE ×2 (13:34→15:13)
[2018-01-28 17:34] VITALS: BP 147/70; PULSE 80; O2SAT 98
== END 2018-01-28 17:34 | disposition home or self-care (01) ==
LOC: ED 11:43
DX: R04.0 Epistaxis (principal); I10 Essential (primary) hypertension; E11.9 Type 2 diabetes mellitus without complications; Z87.891 Personal history of nicotine dependence